=== PATIENT | female | born 1960 | race Caucasian/White ===

== ENCOUNTER 2019-03-13 16:05 | Inpatient (IN) | payer OTHER, SELFPAY ==
[2019-03-13] VITALS (8 sets, daily range): BP systolic 89–98; BP diastolic 50–60; PULSE 86–105; RESP 16–22; TEMP 36.4–36.6; O2SAT 95–100; BMI 29.9
--- NOTE | ~2019-03-13 | XR_ITS ---
EXAMINATION: XR chest 1V portable DATE: 03/18/2019 05:52 INDICATION: Respiratory failure. TECHNIQUE: A single frontal view of the chest was obtained. COMPARISON: Chest single view 03/17/2019, chest CT 03/15/2019 FINDINGS: There are airspace opacities in all lung zones bilaterally, left worse than right. No pleur al effusion or pneumothorax. The heart size is normal. The endotracheal tube tip is 2.4 cm above the debora. A right internal jugular central venous catheter is seen with tip at the superior cavoatrial junction. The nasogastric tube tip is in the stomach. IMPRESSION: 1. Unchanged diffuse lung disease, consistent with pulmonary edema and/or pneumonia. Reviewed, dictated and finalized at location A. RETING SUPERVISOR IMPRESSION: 1. Unchanged diffuse lung disease, consistent with pulmonary edema and/or pneum onia.
--- NOTE | ~2019-03-13 | XR_ITS ---
EXAMINATION: XR chest 1V portable DATE: 03/21/2019 05:59 INDICATION: Respiratory failure. TECHNIQUE: A single frontal view of the chest was obtained. COMPARISON: Chest single view 03/20/2019 FINDINGS: There are interstitial and airspace opacities throughout the lungs bilaterally. No pleural effusion or pneumothorax. The heart size is normal. A right internal jugular central venous catheter is seen with tip in the superior vena cava. IMPRESSION: 1. Stable diffuse lung disease, consistent with pulmonary edema versus pneumonia. Reviewed, dictated and finalized at location A. SEWER IMPRESSION: 1. Stable diffuse lung disease, consistent with pulmonary edema versus pneumoni a.
--- NOTE | ~2019-03-13 | XR_ITS ---
XR chest 1V portable DATE: 03/16/2019 05:37 INDICATION: Mechanical ventilation. Shortness of breath. TECHNIQUE: Portable AP chest on 03/16/2019 at 0523 hours COMPARISON: 03/15/2019 portable AP chest at 1259 hours FINDINGS: Interval placement of ET tube in satisfactory position with tip 3.1 cm above debora since 1259 hours. A nasogastric tube is also been placed, distal tip overlying the gastric fundus, the proximal port at the diaphragmatic hiatus. There has also been placement of a right internal jugular central venous catheter with catheter tip a t the superior caval atrial junction. No evidence of pneumothorax. There are extensive diffuse bilateral pulmonary infiltrates with lesser involvement of the right uppe r lung, stable since 03/15/2019. No pneumothorax. There is minimal if any pleural effusion. Heart size appears normal. Multiple calcified gallstones appear to be present IMPRESSION: Interval placement of ET and NG tubes and right internal jugular central venous catheter NG tube proximal port situated at the diaphragmatic hiatus; advancement of the tube is suggested Relatively stable extensive diffuse bilateral pulmonary infiltrates Reviewed, dictated and finalized at location A. TS DOCTOR IMPRESSION: Interval placement of ET and NG tubes and right internal jugular ce ntral venous catheter NG tube proximal port situated at the diaphragmatic hiatus; advancement of the tube is suggested Relatively stable extensive diffuse bilateral pulmonary infiltrates
--- NOTE | ~2019-03-13 | XR_ITS ---
XR chest 1V portable 03/13/2019 19:46 Indication: Shortness of breath and weakness Procedure: AP portable chest Comparison: No prior studies for comparison. Findings: Heart size upper normal. There are infiltrates of the left mid and lower lung. No edema, pl eural effusion or pneumothorax. No acute osseous abnormality. Impression: 1: Ill-defined infiltrates of the left mid and lower lung which most likely represent atelectasis or pneumonia. Reviewed, dictated and finalized at location A. STANT CLINICAL NURSE MANAGER Impression: 1: Ill-defined infiltrates of the left mid and lower lung which most likely rep resent atelectasis or pneumonia.
--- NOTE | ~2019-03-13 | XR_ITS ---
XR chest 1V portable 03/14/2019 16:35 Indication: Shortness of breath Procedure: AP portable chest Comparison: 03/13/2019 Findings: Heart size normal. There is diffuse bilateral airspace disease, most likely edema. No pleur al effusion or pneumothorax. No acute osseous abnormality. Impression: 1: Interval development of diffuse bilateral airspace disease, most likely edema. Pneumonia less favo red. Reviewed, dictated and finalized at location A. ISITION PROFESSIONAL Impression: 1: Interval development of diffuse bilateral airspace disease, most likely sara a. Pneumonia less favored.
--- NOTE | ~2019-03-13 | XR_ITS ---
EXAMINATION: XR chest 1V portable DATE: 03/15/2019 13:01 INDICATION: Shortness of breath. TECHNIQUE: A single frontal view of the chest was obtained. COMPARISON: Chest single view 03/14/2019, 03/13/2019 FINDINGS: The lung volumes are normal. There are airspace opacities in all lung zones bilaterally, le ft worse than right. No pleural effusion or pneumothorax. The heart size is normal. IMPRESSION: 1. Worsened diffuse lung disease, consistent with pulmonary edema versus pneumonia. Reviewed, dictated and finalized at location A. WRITER ASSEMBLER IMPRESSION: 1. Worsened diffuse lung disease, consistent with pulmonary edema versus pneumo ban.
--- NOTE | ~2019-03-13 | CT_ITS ---
EXAMINATION: CT brain wo con DATE: 03/26/2019 16:08 INDICATION: Lethargy, weakness and confusion TECHNIQUE: Computed tomography (CT) of the head was performed without intravenous contrast. Sagittal and coronal reconstructions were performed. The mA was adjusted according to patient size. Iterative reconstruction technique was employed. The dose-length product was 605.33 mGy-cm. COMPARISON: None FINDINGS: No acute intracranial hemorrhage, acute infarction or abnormal extra axial fluid collection. There is mild scattered white matter hypoattenuation consistent with chronic small vessel ischemic disease. Ventricles are normal and symmetric. No mass/mass effect. The right mastoid is hyperpneumatized. The orbits, paranasal sinuses and left mastoid air cells are normal. IMPRESSION: 1. No acute intracranial process. 2. Mild scattered white matter hypoattenuation consistent with chronic small vessel ischemic disease. Reviewed, dictated and finalized at location A. YARD SUPERVISOR IMPRESSION: 1. No acute intracranial process. 2. Mild scattered white matter hypoattenuation consistent with chronic small ve ssel ischemic disease.
--- NOTE | ~2019-03-13 | XR_ITS ---
EXAMINATION: XR chest 1V portable DATE: 03/15/2019 14:29 INDICATION: Intubation. TECHNIQUE: A single frontal view of the chest was obtained. COMPARISON: A single view at 12:55 PM FINDINGS: There are airspace opacities in all lung zones bilaterally, left worse than right. No pleur al effusion or pneumothorax. The heart size is normal. The endotracheal tube tip is 2.7 cm above the debora. The nasogastric tube tip is in the stomach. A right internal jugular central venous catheter is seen with tip in the superior vena cava. IMPRESSION: 1. Unchanged diffuse lung disease, consistent with pulmonary edema versus pneumonia. Reviewed, dictated and finalized at location A. L ASSEMBLER IMPRESSION: 1. Unchanged diffuse lung disease, consistent with pulmonary edema versus pneum onia.
--- NOTE | ~2019-03-13 | XR_ITS ---
XR chest 1V portable 03/19/2019 06:16 Indication: Respiratory failure Procedure: AP portable chest Comparison: Comparison to multiple prior studies sequentially, with oldest reviewed study dated 03/15. Findings: Heart size normal. Endotracheal tube tip 4.8 cm above the debora. NG tube in the stomach. R ight IJ central line tip in the SVC. Heart size normal. Mild diffuse interstitial edema, slightly imp roved. No pleural effusion or pneumothorax. No acute osseous abnormality. Impression: 1: Improved interstitial edema. Reviewed, dictated and finalized at location A. COMBER Impression: 1: Improved interstitial edema.
--- NOTE | ~2019-03-13 | XR_ITS ---
EXAMINATION: XR chest 1V portable DATE: 03/20/2019 05:52 INDICATION: Respiratory failure. TECHNIQUE: A single frontal view of the chest was obtained. COMPARISON: Chest single view 03/19/2019, chest CT 03/15/2019 FINDINGS: There are interstitial opacities and airspace opacities throughout the lungs bilaterally. N o pleural effusion or pneumothorax. The heart size is normal. A right internal jugular central venous catheter is seen with tip in the superior vena cava. IMPRESSION: 1. Worsened diffuse lung disease, consistent with pulmonary edema versus pneumonia. Reviewed, dictated and finalized at location A. APIST IMPRESSION: 1. Worsened diffuse lung disease, consistent with pulmonary edema versus pneumo ban.
--- NOTE | ~2019-03-13 | US_ITS ---
US arterial ankle brachial ind INDICATION: Peripheral vascular disease. TECHNIQUE: Segmental pressures and plethysmographic and Doppler waveforms of the brachial and lower e xtremity arteries were obtained. COMPARISON: None. FINDINGS: Right and left brachial artery pressures of 102 mm Hg and 100 mm Hg, respectively, are concordant (no rmal difference <= 30 mmHg). The right ankle-brachial index (LILIA) is 0.85 (normal >= 0.9-1.0). The right great toe-brachial index (TBI) is not measurable (normal >= 0.60). The left LILIA is 0.81. The left TBI is not measurable. IMPRESSION: 1. Diminished bilateral ankle-brachial indices. Toe brachial indices not measurable. Findings compati ble with peripheral arterial disease. Reviewed, dictated and finalized at location A. CTOR BUSINESS IMPRESSION: 1. Diminished bilateral ankle-brachial indices. Toe brachial indices not measur able. Findings compatible with peripheral arterial disease.
--- NOTE | ~2019-03-13 | CT_ITS ---
EXAMINATION: CTA chest PE protocol DATE: 03/15/2019 21:56 PHYSICIAN GENERAL INTERNAL MEDICINE INDICATION: Possible pulmonary embolism TECHNIQUE: Computed tomographic angiography (CTA) of the chest was performed with 100 mL Omnipaque-35 0 intravenous contrast. The dose-length product was 683.49 mGy-cm. Maximum intensity projection 3D-re constructions of the aorta and other arteries were constructed by the technologist on a separate work station. Automated exposure control and iterative reconstruction technique were employed. COMPARISON: Chest dated 03/15/2019 FINDINGS: The study is technically adequate without evidence for pulmonary embolism. There is mediast inal lymphadenopathy. Endotracheal tube is less than 1 cm above the debora. NG tube in the stomach. T here is enlargement of the pulmonary arteries consistent with pulmonary arterial hypertension. There is extensive airspace consolidation throughout both lungs superimposed on emphysema. No significant p leural or pericardial effusion. There are gallstones. IMPRESSION: 1. No evidence for pulmonary embolism. 2: Extensive bilateral airspace disease which may represent a combination of pneumonia and/or edema. 3: Pulmonary arterial hypertension. 4: Endotracheal tube tip less than 1 cm above the debora. Recommend retraction. 5: Cholelithiasis. Reviewed, dictated and finalized at location A. ICIAN GENERAL INTERNAL MEDICINE IMPRESSION: 1. No evidence for pulmonary embolism. 2: Extensive bilateral airspace disease which may represent a combination of pn eumonia and/or edema. 3: Pulmonary arterial hypertension. 4: Endotracheal tube tip less than 1 cm above the debora. Recommend retraction. 5: Cholelithiasis.
--- NOTE | ~2019-03-13 | XR_ITS ---
EXAMINATION: XR chest 1V portable INDICATION: Respiratory failure TECHNIQUE: Portable AP chest at 0525 hours COMPARISON: 03/16/2019 FINDINGS: The endotracheal tube ends 4.1 cm above the debora. A nasogastric tube is in the stomach. A right internal jugular central venous catheter ends with its tip in the distal superior vena cava. D iffuse interstitial and airspace opacities persist with slight improvement. No definite pleural effus ion or pneumothorax is identified. IMPRESSION: 1. Diffuse lung disease with slight improvement, consistent with pulmonary edema and/or pneumonia. Reviewed, dictated and finalized at location A. H SCIENCE TECHNICAL OFFICER IMPRESSION: 1. Diffuse lung disease with slight improvement, consistent with pulmonary sara a and/or pneumonia.
--- NOTE | 2019-03-13 16:10 | ED.WEAKNESS ---
HPI - Weakness General Chief complaint: Weakness Stated complaint: dehydration and weakness Time Seen by Provider: 03/13/19 16:09 Source: patient and RN notes reviewed Mode of arrival: EMS Limitations: no limitations History of Present Illness HPI Narrative: Pt is a 58 y/o female who presents to the ED, from her PCP's office via EMS, with c/o increasing weakness and confusion over the past few days. Pt states that she is dying of thirst and that her tongue is white. Pt notes that she was sent from her PCP's office for hypotension. Pt reports nausea and decreased intake, but denies a fever, vomiting, and diarrhea. MD Complaint: generalized weakness (and confusion) Onset (ago): day(s) (few) Duration: other (still present) Location: generalized Associated symptoms: nausea/vomiting and other (white tongue, decreased intake) Related Data Home Medications Medication Instructions Recorded Confirmed azelastine 03/13/19 buspirone mg 03/13/19 citalopram mg 03/13/19 etanercept [Enbrel SureClick] mg SUBCUT 03/13/19 folic acid 03/13/19 gabapentin 03/13/19 gentamicin TOPICAL 03/13/19 hydrocodone-acetaminophen 03/13/19 ibuprofen 03/13/19 leflunomide mg 03/13/19 levothyroxine 03/13/19 lisinopril 03/13/19 potassium chloride meq PO 03/13/19 pravastatin 03/13/19 Allergies Allergy/AdvReac Type Severity Reaction Status Date / Time No Known Allergies Allergy Verified 03/13/19 16:27 Review of Systems Review of Systems: All systems reviewed & are unremarkable except as noted in HPI and below Constitutional: Constitutional: Reports other (decreased intake) Gastrointestinal: Gastrointestinal: Denies diarrhea, Reports nausea and Denies vomiting Neurologic: Reports confusion and Reports weakness (increasing) [facility] Past Medical History Medical History (Updated 03/13/19 @ 19:33 by Demetrius Moya MD) Anemia resolved Anxiety HTN (hypertension) Hyperlipidemia Hypothyroid Peripheral neuropathy Pseudomyxoma peritonei Rheumatoid arthritis Type II diabetes mellitus Surgical History Surgical History (Updated 03/13/19 @ 16:40 by Sameera Ahn) H/O dilation and curettage Social History Social History Smoking packs per day: 1 Smoking cigarettes per day: 20.0 Years smoked: 31 Smoking pack-years: 31.00 Smoking status: Current every day smoker Tobacco type: cigarettes Alcohol intake: never Exam Const: General: no acute distress and alert Orientation/consciousness: patient oriented x3 HENMT: Mouth: Yes dry mucous membranes Other: has oral thrush Eyes: Pupils: Equal, round and reactive pupils present Neck: Neck: normal visual inspection Chest: Chest palpation & inspection: normal inspection of the chest Resp: Effort & Inspection: normal respiratory effort Auscultation: wheezes Cardio: Rate: regular rate GI: GI Palp: Yes Soft to palpation Back/Spine/Pelvis: Back: no CVA tenderness Skin: General skin exam: normal color Neuro: General: patient oriented x3 and moves all extremities Extrem: Other: has contractures of both hand Course Reevaluation(s) Reevaluation #1: Pt refuses x-ray after explanation of importance. Date: 03/13/19 Time: 19:22 Consultations Consultation #1: Discussed case with TALA Braun (Hospitalist). Accepts admission to Dr. Torrez. Date: 03/13/19 Time: 17:31 Vital Signs Vital signs: Vital Signs Temperature 36.6 C 03/13/19 16:05 Pulse Rate 97 03/13/19 16:05 Respiratory Rate 18 03/13/19 16:05 Blood Pressure 89/50 L 03/13/19 16:05 Pulse Oximetry 99 03/13/19 16:05 Temperature 36.6 C 03/13/19 16:05 Pulse Rate 105 H 03/13/19 19:10 Respiratory Rate 16 03/13/19 19:10 Blood Pressure 90/58 L 03/13/19 19:10 Pulse Oximetry 95 03/13/19 19:10 MDM - Weakness MDM Narrative Medical decision making narrative: Inform patient about her lab work, patient refused the chest x-ray will admit to the hospital for IV
[2019-03-13] MEDS: SODIUM CHLORIDE 0.9% IV 1,000 ML 999 ML IV CONT ×2 (16:30→18:33)
[2019-03-13] MEDS: SODIUM CHLORIDE 0.9% IV 1,000 ML 150 ML IV CONT (16:30)
[2019-03-13 16:43] LABS: Basophils Absolute Auto 0.1 K/mm3 (0.0-0.1); Basophils Percent Auto 0.7 % (0.2-1.2); Eosinophils Absolute Auto 0.1 K/mm3 (0-0.3); Eosinophils Percent Auto 0.7 % (0-4.4); Hemoglobin 8.8 g/dL (12.0-15.0); Immature Granulocyte Absolute 0.09 K/mm3 (0.00-0.031); Immature Granulocyte Percent A 1.2 % (0-0.5); Lymphocytes Absolute Auto 0.47 K/mm3 (0.9-3.2); Lymphocytes Percent Auto 6.2 % (18.3-44.2); Mean Corpuscular HGB Conc 31.4 g/dl (32-36); Mean Corpuscular Hemoglobin 28.6 pg (26-34); Mean Corpuscular Volume 90.9 fl (80-100); Mean Platelet Volume 11.7 fl (7.4-10.4); Monocytes Absolute Auto 0.2 K/mm3 (0.1-0.6); Monocytes Percent Auto 3.2 % (2.6-8.5); Neutrophils Absolute Auto 6.6 K/mm3 (1.3-6.7); Platelet Count Result 140 k/mm3 (150-375); Red Blood Count 3.08 M/mm3 (4.2-5.4); Red Cell Distribution Width 16.6 % (11.5-14.5); White Blood Count 7.5 K/mm3 (4.5-10.0)
[2019-03-13 16:50] LABS: Alveolar/Arterial O2 Gradient 42.4 mmHg; Base Excess ABG -10.7 mEq/l (+/-2.0); Fractional Inspired Oxygen 21 %; HCO3 ABG 14.5 mEq/l (22.0-26.0); Oxygen Content ABG 10.2 %vol (16.0-22.0); Oxygen Saturation ABG 93.2 % (95.0-100.0); Oxyhemoglobin 86.2 % THb (90.0-100.0); PCO2 ABG 29.9 mmHg (35.0-45.0); PO2 ABG 71.5 mmHg (80.0-100.0); Total Hemoglobin 8.3 g/dL (12.0-18.0); pH ABG 7.305 (7.350-7.450)
[2019-03-13 16:51] LABS: Device ROOM AIR; Site Drawn LEFT BRACHIAL
[2019-03-13 17:19] LABS: Alanine Aminotransferase 16 U/L (4-35); Albumin Level 3.2 g/dL (3.5-5.1); Alkaline Phosphatase 158 U/L (38-126); Aspartate Amino Transferase 35 U/L (14-36); Bilirubin,Total 0.2 mg/dL (0.2-1.3); Blood Urea Nitrogen 42 mg/dL (7-17); Calcium 7.4 mg/dL (8.4-10.2); Carbon Dioxide 15 mmol/L (22-30); Chloride 101 mmol/L (98-107); Estimated CRCL calculation 41 ml/min; Estimated Glomerular Filt Rate 42; Glucose 93 mg/dL (65-105); Potassium 3.6 mmol/L (3.4-5.0); Sodium 128 mmol/L (137-145)
[2019-03-13 17:30] LABS: CRP 21.8 mg/dL (<1.0)
[2019-03-13] MEDS: HYDROCORTISONE SODIUM SUCCINATE 100 MG/2 ML VIAL IV PUSH (18:05)
[2019-03-13 18:14] LABS: Add Urine Microscopic? YES; Appearance Urine Clear (Clear); Bacteria Urine Trace /hpf; Bilirubin Urine Negative (Negative); Blood Urine 2+ (Negative); Color Urine Yellow (Yellow); Glucose Urine UA Negative (Negative); Ketones Urine Negative (Negative); Leukocyte Esterase Ur 3+ LEU/UL (Negative); Mucus Urine Rare /lpf; Nitrate Urine Negative (Negative); Protein Urine 1+ mg/dL (Negative); Squamous Epithelial Cell Urine Moderate /hpf (Few); Urobilinogen Urine Negative mg/dL (<2.0); WBC Urine 21-30 /hpf
[2019-03-13] MEDS: LACTATED RINGERS 1,000 ML 150 ML IV CONT (21:21)
[2019-03-14] VITALS (13 sets, daily range): BP systolic 89–134; BP diastolic 42–99; PULSE 83–118; RESP 18–30; TEMP 36.1–36.8; O2SAT 80–100; BMI 29.4
[2019-03-14 00:50] LABS: Glucose Point of Care 109 (65-105)
[2019-03-14] MEDS: LACTATED RINGERS 1,000 ML 150 ML IV CONT (03:59)
[2019-03-14 05:04] LABS: Basophils Percent Auto 0.3 % (0.2-1.2); Hematocrit 24.8 % (37.0-47.0); Hemoglobin 7.7 g/dL (12.0-15.0); Immature Granulocyte Absolute 0.14 K/mm3 (0.00-0.031); Lymphocytes Absolute Auto 0.33 K/mm3 (0.9-3.2); Lymphocytes Percent Auto 4.7 % (18.3-44.2); Mean Corpuscular Hemoglobin 28.2 pg (26-34); Mean Corpuscular Volume 90.8 fl (80-100); Mean Platelet Volume 11.7 fl (7.4-10.4); Monocytes Absolute Auto 0.2 K/mm3 (0.1-0.6); Monocytes Percent Auto 2.1 % (2.6-8.5); Neutrophils Absolute Auto 6.4 K/mm3 (1.3-6.7); Neutrophils Percent Auto 90.9 % (45.5-73.1); Platelet Count Result 125 k/mm3 (150-375); Red Blood Count 2.73 M/mm3 (4.2-5.4); Red Cell Distribution Width 16.7 % (11.5-14.5)
[2019-03-14 05:19] LABS: Blood Urea Nitrogen 22 mg/dL (7-17); Calcium 7.1 mg/dL (8.4-10.2); Carbon Dioxide 15 mmol/L (22-30); Chloride 116 mmol/L (98-107); Estimated CRCL calculation 72 ml/min; Estimated Glomerular Filt Rate > 60; Glucose 95 mg/dL (65-105); Sodium 137 mmol/L (137-145)
[2019-03-14 05:59] LABS: Glucose Point of Care 81 (65-105)
[2019-03-14] MEDS: LEVOTHYROXINE SODIUM 100 MCG TABLET PO (06:12)
--- NOTE | 2019-03-14 07:50 | PM.IMHP ---
H&P: HPI History of Present Illness Chief complaint: Weakness Narrative: Date and time of patient contact: March 14, 2019 at 4:30 a.m. Christie Andrade is a 58 year old female female with a past medical history chronic anemia, hypertension, diet-controlled type 2 diabetes mellitus, and peripheral neuropathy who presented to the ER with dehydration and generalized weakness. The patient received a ?pain shot? in her muscle at her doctor's office on Wednesday. The following day she developed sores in her mouth and had decreased appetite. She did not have any nausea vomiting or abdominal pain. She had had decreased urine output without dysuria or hematuria. She has not been having cough or congestion. She denies any fevers but is frequently chilled. She reports that she lost the fingernail on her 3rd finger. She does not remember how she injured it. The finger itself is not erythematous or swollen. However her nail bed is dark black in color. She reports that she has but a Neosporin on a daily. She has a chronic right great toe wound that Podiatry is following as outpatient. She reports that the wound appears stable compared her last Podiatry visit. She usually put some cream on the wound and puts a bandage over it. Her 3rd toe on her left foot is discolored she reports that she stubbed her toe recently. The patient has felt weak with standing and lightheaded. She feels as if she is dying of thirst. She usually drinks a 12 pack of soda a day. However she has not been able to drink much fluid at all due to oral pain. She also has a sore throat. Oral thrush is noted on exam. She does continue to smoke 2 packs of cigarettes per day. Review of Systems Review of Systems: Narrative: Except as documented in the HPI, all other systems were reviewed and are negative. 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 Right great toe HTN (hypertension) Hyperlipidemia Hypothyroid Peripheral neuropathy Rheumatoid arthritis Type II diabetes mellitus Surgical History Surgical History (Updated 03/13/19 @ 16:40 by Sameera Ahn) H/O dilation and curettage Family History Family History (Updated 03/13/19 @ 21:16 by Dior Quintana RN) Mother Diabetes mellitus Father Coronary artery disease Sibling Diabetes mellitus Social History Social History (Updated 03/14/19 @ 08:07 by Julia Soto DO) Social History: Primary care provider: Lisa Monreal NP Code status: Full code per patient request Smoking packs per day: 2 Smoking cigarettes per day: 40.0 Years smoked: 42 Smoking pack-years: 84.00 Smoking status: Current every day smoker Tobacco type: cigarettes Second hand tobacco smoke exposure: Yes Alcohol intake: never Substance use: never Additional living arrangements comments: Patient is however her ex- still lives with her and helps take care of her. She has 1 daughter who is healthy. Additional occupation/education comments: Disabled due to rheumatoid arthritis. Gender identity (if verbalized by the patient): Female Spiritual care concerns: No Agree to blood products: Yes Meds Home Medications and Allergies Home Medications Medication Instructions Recorded Confirmed Type azelastine 1 drp OPHTHALMIC (EYE) BID 03/13/19 03/13/19 History buspirone 7.5 mg PO DAILY 03/13/19 03/13/19 History citalopram 40 mg PO DAILY 03/13/19 03/13/19 History folic acid 1 mg PO DAILY 03/13/19 03/13/19 History gabapentin 1,200 mg PO HS 03/13/19 03/13/19 History gabapentin 600 mg PO QAM 03/13/19 03/13/19 History hydrocodone-acetaminophen 1 tablet PO BID PRN 03/13/19 03/13/19 History ibuprofen 600 mg PO TID 03/13/19 03/13/19 History leflunomide 20 mg PO DAILY 03/13/19 03/13/19 History levothyroxine 100 mcg PO DAILY 03/13/19 03/13/19 History lisinopril
[2019-03-14] MEDS: CITALOPRAM HYDROBROMIDE 20 MG TABLET 40 MG PO (08:46)
[2019-03-14] MEDS: IBUPROFEN 600 MG TABLET PO ×2 (08:46→12:40)
[2019-03-14] MEDS: POTASSIUM CHLORIDE 20 MEQ PACKET (FOR LIQUID) 40 MEQ PO (08:46)
[2019-03-14] MEDS: busPIRone HCL 5 MG TABLET PO (08:46)
[2019-03-14] MEDS: FOLIC ACID 1 MG TABLET PO (08:46)
[2019-03-14] MEDS: busPIRone HCL 2.5 MG TABLET PO (08:46)
[2019-03-14] MEDS: POTASSIUM CHLORIDE 10 MEQ TABLET.ER PO (08:47)
[2019-03-14] MEDS: PRAVASTATIN SODIUM 20 MG TABLET 40 MG PO (08:47)
[2019-03-14] MEDS: GABAPENTIN 300 MG CAPSULE 600 MG PO (08:47)
[2019-03-14] MEDS: MAGNES & ALUM HYD/SIMETH/DIPHENHYD/LIDOCAINE 119 ML MOUTHWASH BY MOUTH (08:53)
--- NOTE | 2019-03-14 09:53 | PC.NURSE ---
This patient, Christie Andrade, was transferred to [[id number]] on 03/14/19 at 0953. Personal belongings sent with patient. Belongings list checked and signed with receiving [ ]. Report given to [DOREEN CHARLTON]. Appropriate documentation sent with patient.
--- NOTE | 2019-03-14 10:55 | PC.NURSE ---
This patient, Christie Andrade, was received from [[facility] ] on 03/14/19 at 0955. Personal belongings list checked and signed. Patient/family oriented to unit policies and routines
--- NOTE | 2019-03-14 12:23 | PCNSR ---
On 03/14/19, the student, Charlotte Phelps, provided care and completed [facility] documentation on this patient. I have reviewed the student's documentation and agree with the findings.
--- NOTE | 2019-03-14 13:20 | PM.IMPN ---
Progress Note: A&P Assessment and Plan (1) Acute respiratory failure: Qualifiers: Respiratory failure complication: hypoxia Qualified Code(s): J96.01 - Acute respiratory failure with hypoxia Code(s): J96.00 - Acute respiratory failure, unspecified whether with hypoxia or hypercapnia Status: Acute Assessment and Plan: Upon transfer from IMU to medical floor, patient requiring 2 L oxygen. On my initial exam patient stable. I am call to see the patient this afternoon at approximately 4:10 p.m.. Patient with recent episode of shortness breath. Currently on 4 L of oxygen. Patient does appear pale. Stat chest x-ray ordered and now available. I did personally review chest x-ray which does show bilateral airspace disease most likely result fluid overload. Will stop IV fluids. Stat ABG done with results concern possible mixed venous results and will repeat. Now on 5 L oxygen. Does not appear to have pneumonia with no fever and no cough. WBC not elevated. Will transfer back to IMU for closer monitoring. Will check echocardiogram in a.m.. Total time spent in critical care 45 minutes. (2) Metabolic acidosis with normal anion gap and failure of bicarbonate regeneration: Code(s): E87.2 - Acidosis Status: Acute Assessment and Plan: Consistent with hyperchloremic acidosis or reduced bicarb regeneration given the patient's acute kidney injury. Bicarb level remains low but does remain on LR at this time. Hold off changing IV fluids. Can at bicarb if becomes necessary. Continue to follow. (3) Hypokalemia: Code(s): E87.6 - Hypokalemia Status: Acute Assessment and Plan: Potassium remaining at 3.0 even on repeat this afternoon. Continue oral replacement. Will continue to monitor and replace as needed. (4) Anemia: Qualifiers: Anemia type: unspecified type Qualified Code(s): D64.9 - Anemia, unspecified Code(s): D64.9 - Anemia, unspecified Status: Acute Assessment and Plan: Acute on chronic anemia. Likely due to dietary deficiencies given the patient's clinical picture. Clinically, patient appeared more pale this afternoon with concern for decreasing hemoglobin. Repeat hemoglobin actually increased at 9.0. Will not transfuse as result. Iron studies are still pending. Will continue to follow H&H. Vitamin B12 and folate levels are also pending. Of note, daughter does now tell me patient has had blood in stool although patient denied this afternoon. Follow H&H as noted. (5) Dehydration: Code(s): E86.0 - Dehydration Status: Acute Assessment and Plan: Clinically dehydrated on admission. Sodium has improved with IV fluids. Still has acidosis. Will need to push oral intake with need stop IV fluids. (6) Candidiasis of mouth: Code(s): B37.0 - Candidal stomatitis Status: Acute Assessment and Plan: Will continue IV fluconazole. Does also have Magic mouthwash but does not wish to use. Will continue to monitor. Reason for problems with eating and dehydration. 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 Continue current care. (8) Finger ulcer: Qualifiers: Non-pressure ulcer stage: unspecified non-pressure ulcer stage Qualified Code(s): L98.499 - Non-pressure chronic ulcer of skin of other sites with unspecified severity Code(s): L98.499 - Non-pressure chronic ulcer of skin of other sites with unspecified severity Status: Acute Assessment and Plan: Wound care has seen. Continue current wound care. (9) HTN (hypertensi
[2019-03-14] MEDS: LACTATED RINGERS 1,000 ML 1000 ML IV CONT (14:29)
[2019-03-14 16:22] LABS: Glucose Point of Care 94 (65-105)
[2019-03-14 16:28] LABS: Alveolar/Arterial O2 Gradient 179.5 mmHg; Base Excess ABG -10.3 mEq/l (+/-2.0); Fractional Inspired Oxygen 36 %; HCO3 ABG 14.7 mEq/l (22.0-26.0); Oxygen Content ABG 9.1 %vol (16.0-22.0); Oxyhemoglobin 69.6 % THb (90.0-100.0); PCO2 ABG 29.6 mmHg (35.0-45.0); PO2 FiO2 Ratio Arterial Blood 1.19 %; Total Hemoglobin 9.3 g/dL (12.0-18.0); pH ABG 7.315 (7.350-7.450)
[2019-03-14 16:30] LABS: Device NASAL CANNULA; Modified Allen's Test Pass; Oxygen Saturation ABG 75.3 % (95.0-100.0); PO2 ABG 42.8 mmHg (80.0-100.0); Site Drawn RIGHT RADIAL
[2019-03-14 16:38] LABS: Basophils Percent Auto 0.2 % (0.2-1.2); Eosinophils Percent Auto 0.2 % (0-4.4); Hematocrit 28.7 % (37.0-47.0); Immature Granulocyte Absolute 0.04 K/mm3 (0.00-0.031); Immature Granulocyte Percent A 0.9 % (0-0.5); Lymphocytes Absolute Auto 0.49 K/mm3 (0.9-3.2); Mean Corpuscular HGB Conc 31.4 g/dl (32-36); Mean Corpuscular Hemoglobin 28.6 pg (26-34); Mean Corpuscular Volume 91.1 fl (80-100); Mean Platelet Volume 10.3 fl (7.4-10.4); Monocytes Absolute Auto 0.1 K/mm3 (0.1-0.6); Neutrophils Absolute Auto 3.8 K/mm3 (1.3-6.7); Neutrophils Percent Auto 85.7 % (45.5-73.1); Platelet Count Result 119 k/mm3 (150-375); Red Blood Count 3.15 M/mm3 (4.2-5.4); Red Cell Distribution Width 16.6 % (11.5-14.5); White Blood Count 4.4 K/mm3 (4.5-10.0)
[2019-03-14 16:50] LABS: Blood Urea Nitrogen 20 mg/dL (7-17); Calcium 8.3 mg/dL (8.4-10.2); Carbon Dioxide 15 mmol/L (22-30); Chloride 113 mmol/L (98-107); Estimated CRCL calculation 72 ml/min; Estimated Glomerular Filt Rate > 60; Glucose 93 mg/dL (65-105); Sodium 135 mmol/L (137-145)
[2019-03-14 17:02] LABS: Platelet Estimate Adequate (Adequate)
[2019-03-14 17:03] LABS: Ovalocytes 1+ (NORMAL); Tear Drop Cells 2+ (NORMAL)
[2019-03-14 17:05] LABS: Schistocytes 2+ (NORMAL)
[2019-03-14 17:19] LABS: Alveolar/Arterial O2 Gradient 206.2 mmHg; Fractional Inspired Oxygen 40 %; HCO3 ABG 14.1 mEq/l (22.0-26.0); Oxygen Content ABG 11.4 %vol (16.0-22.0); Oxyhemoglobin 72.2 % THb (90.0-100.0); PCO2 ABG 29.2 mmHg (35.0-45.0); PO2 FiO2 Ratio Arterial Blood 1.13 %; Total Hemoglobin 11.2 g/dL (12.0-18.0); pH ABG 7.302 (7.350-7.450)
[2019-03-14 17:20] LABS: PO2 ABG 45.4 mmHg (80.0-100.0)
[2019-03-14 17:21] LABS: Device NASAL CANNULA; Oxygen Saturation ABG 77.8 % (95.0-100.0); Site Drawn LEFT BRACHIAL
[2019-03-14] MEDS: PANTOPRAZOLE SODIUM IV 40 MG VIAL IV PUSH (18:16)
[2019-03-14] MEDS: POTASSIUM CHLORIDE 20 MEQ TABLET 40 MEQ PO (18:17)
--- NOTE | 2019-03-14 18:32 | PC.NURSE ---
This patient, Christie Andrade, was transferred to [IMU] on 03/14/19 at 1830. Personal belongings sent with patient. Belongings list checked and signed with receiving [RN]. Report given to [Eduarda]. Appropriate documentation sent with patient.
[2019-03-14] MEDS: FUROSEMIDE INJ 40 MG/4 ML VIAL 20 MG IV PUSH (18:50)
--- NOTE | 2019-03-14 19:00 | PM.EVENT ---
Event Note Event Note Event Note: I received a call from the patient's nurse, Eduarda, with concerns of the patients respiratory status. Patient was just transferred to the IMU per Dr. Rosado for such. Chest x-ray was reviewed and appears to be consistent with pulmonary edema. She was given Lasix 20 milligrams. Repeat ABG showed a mixed metabolic and respiratory acidosis. On repeat blood gas, her pH did drop and her pCO2 did increase, indicating to me that she is having a more difficult time compensating for the metabolic acidosis. She has since been started on BiPAP and is much more comfortable. Unfortunately, we had to shut off her IV fluids due to volume overload and cannot initiate bicarb drip at this time. Should her repeat ABG demonstrate no changed, would go ahead and intubate and start bicarbonate drip. This was discussed with the patient, her , and daughter and they are all in agreement. Etiology of the metabolic acidosis is not clear at this time, but after discussions with Dr. Rosado will empirically start her on Zosyn. Blood cultures pending. A total of 40 minutes critical care time was spent in attention of this patient including review of chart, review of blood gases, initiation of BiPAP, and multiple discussions and reassessments as well as discussions with the attending hospitalist.
[2019-03-14 20:04] LABS: Carboxyhemoglobin 0.2 % THb (0-2.0); Fractional Inspired Oxygen 40 %; HCO3 ABG 14.3 mEq/l (22.0-26.0); Methemoglobin ABG 0.2 %THb (0-1.5); Oxygen Content ABG 9.6 %vol (16.0-22.0); Oxyhemoglobin 71.8 % THb (90.0-100.0); Reduced Hemoglobin 27.8 %THb (0-5.0); Total Hemoglobin 9.5 g/dL (12.0-18.0)
[2019-03-14 20:06] LABS: INR 1.4; PO2 ABG 48.1 mmHg (80.0-100.0); Prothrombin Time 16.5 Seconds (11.1-14.7); pH ABG 7.243 (7.350-7.450)
[2019-03-14 20:07] LABS: Alanine Aminotransferase 16 U/L (4-35); Albumin Level 2.9 g/dL (3.5-5.1); Alkaline Phosphatase 123 U/L (38-126); Aspartate Amino Transferase 43 U/L (14-36); Bilirubin,Total 0.4 mg/dL (0.2-1.3); Device NASAL CANNULA; Modified Allen's Test Pass; Oxygen Saturation ABG 77.6 % (95.0-100.0); Partial Thromboplastin Time 26.9 SECONDS (22.3-36.8); Site Drawn RIGHT RADIAL
[2019-03-14] MEDS: GABAPENTIN 300 MG CAPSULE 1200 MG PO (20:16)
[2019-03-14 20:19] LABS: NT Pro B Type Natriuretic Pept 3240 PG/ML (5-100); Troponin I 0.029 ng/mL (0.000-0.034)
[2019-03-14 21:34] LABS: Blood Urea Nitrogen 21 mg/dL (7-17); Calcium 8.5 mg/dL (8.4-10.2); Carbon Dioxide 14 mmol/L (22-30); Chloride 113 mmol/L (98-107); Estimated CRCL calculation 72 ml/min; Estimated Glomerular Filt Rate > 60; Glucose 105 mg/dL (65-105); Potassium 3.2 mmol/L (3.4-5.0); Sodium 136 mmol/L (137-145)
[2019-03-14 21:52] LABS: Alveolar/Arterial O2 Gradient 364.5 mmHg; Base Excess ABG -10.3 mEq/l (+/-2.0); Carboxyhemoglobin 0.3 % THb (0-2.0); Fractional Inspired Oxygen 100 %; HCO3 ABG 15.8 mEq/l (22.0-26.0); Methemoglobin ABG 0.4 %THb (0-1.5); Oxygen Content ABG 12.8 %vol (16.0-22.0); Oxygen Saturation ABG 99.6 % (95.0-100.0); Oxyhemoglobin 97.8 % THb (90.0-100.0); PCO2 ABG 35.3 mmHg (35.0-45.0); PO2 ABG 313.2 mmHg (80.0-100.0); PO2 FiO2 Ratio Arterial Blood 3.13 %; Reduced Hemoglobin 1.5 %THb (0-5.0); Total Hemoglobin 8.7 g/dL (12.0-18.0)
[2019-03-14 21:55] LABS: Device NON-INVASIVE VENT; Modified Allen's Test Pass; Site Drawn RIGHT RADIAL; pH ABG 7.268 (7.350-7.450)
[2019-03-14 21:56] LABS: Non-Invasive Expiratory Pressure 6 CMH2O; Non-Invasive Inspiratory Pressure 14 CMH2O; Non-Invasive Vent Rate 14 /MIN
[2019-03-14 22:54] LABS: Reflex Lactic Acid Yes or No Add Lactic
[2019-03-14 23:23] LABS: Lactic Acid 1.5 mmol/L (0.7-2.1)
[2019-03-14 23:35] LABS: Troponin I 0.027 ng/mL (0.000-0.034)
[2019-03-15] VITALS (27 sets, daily range): BP systolic 76–127; BP diastolic 41–68; PULSE 74–138; RESP 22–37; TEMP 35.7–38.4; O2SAT 88–100
--- NOTE | 2019-03-15 | ECHO_ITS ---
Patient Info Name: Christie Andrade Age: 58 years : 1960 Gender: Female Ht: 62 in Wt: 161 lbs BSA: 1.81 m2 HR: 138 bpm BP: 100 / 60 mmHg Heart Rhythm: Tachycardia Technical Quality: Poor Exam Date: 03/15/2019 12:29 PM Exam Location: [facility] Patient Status: Inpatient Admit Date: 03/13/2019 Staff Ordering Physician: Irish Hammonds MD [employer] Design Engineer: Jorge Ahuja RDCS Attending Provider: Kolby Torrez MD Referring Physician: JAYLENE NAIR; Exam Type: CA echo doppler color flow Study Info Indications J96.00 - Acute respiratory failure, unspecified whether with hypoxia or hypercapnia Complete two-dimensional, color flow and Doppler transthoracic echocardiogram is performed. Reason for Poor Study: poor patient cooperation History/Risk Factors Acute respiratory failure, HTN, DM2, SOB. Summary 1. Left ventricular chamber size and wall thickness are normal with no regional wall motion abnormalities. Hyperdynamic left ventricular function with an estimated ejection fraction of > 75%. Grade 2 diastolic dysfunction is present.. 2. Right ventricular chamber dimension is mildly enlarged with mild hypokinesis. 3. There is mild tricuspid valve regurgitation. 4. Severe pulmonary hypertension, estimated pulmonary arterial systolic pressure is 77 mmHg. 5. Technically difficult study with limited views. 6. Rhythm indeterminant. Left Ventricle Left ventricular chamber dimension is normal. Left ventricular systolic function is normal, estimated at >70%. There is no increased left ventricular wall thickness. Left ventricular septal wall motion is normal. The left ventricular diastolic function is grade III diastolic dysfunction. Left ventricular chamber size and wall thickness are normal with no regional wall motion abnormalities. Hyperdynamic left ventricular function with an estimated ejection fraction of > 75%. Grade 2 diastolic dysfunction is present.. Right Ventricle Right ventricular chamber dimension is mildly enlarged with mild hypokinesis. Right ventricular systolic function is reduced. Left Atria Left atrial chamber dimension is normal. Right Atria Right atrial chamber dimension is normal. Aortic Valve The aortic valve is trileaflet. There is no aortic valve sclerosis. There is no aortic valve stenosis. There is no aortic valve regurgitation. Pulmonic Valve The pulmonic valve is normal. There is no pulmonic valve stenosis. There is no pulmonic regurgitation. Mitral Valve The mitral valve has normal leaflets. There is no mitral valve stenosis. There is no mitral valve regurgitation. Tricuspid Valve The tricuspid valve leaflets are normal. There is no significant tricuspid valve stenosis. There is mild tricuspid valve regurgitation. Severe pulmonary hypertension, estimated pulmonary arterial systolic pressure is 77 mmHg. Pericardium/Pleural The pericardium appears normal. There is no pericardial effusion. Inferior Vena Cava Normal inferior vena cava with >50% collapse upon inspiration consistent with Empty right atrial pressure, 10 mmHg. Aorta The aortic root size at the sinus of Valsalva is normal. The prox ascending aorta size is normal. Left Ventricular Outflow Tract Name Value Normal
[2019-03-15] MEDS: SODIUM BICARBONATE 8.4% 50 MEQ/50 ML VIAL IV PUSH (00:20)
[2019-03-15 00:42] LABS: Alveolar/Arterial O2 Gradient 356.4 mmHg; Base Excess ABG -5.2 mEq/l (+/-2.0); Carboxyhemoglobin 0.3 % THb (0-2.0); Fractional Inspired Oxygen 70 %; HCO3 ABG 19.5 mEq/l (22.0-26.0); Methemoglobin ABG 0.4 %THb (0-1.5); Oxygen Content ABG 11.1 %vol (16.0-22.0); Oxygen Saturation ABG 97.8 % (95.0-100.0); Oxyhemoglobin 95.2 % THb (90.0-100.0); PCO2 ABG 34.5 mmHg (35.0-45.0); PO2 ABG 105.6 mmHg (80.0-100.0); PO2 FiO2 Ratio Arterial Blood 1.51 %; Reduced Hemoglobin 4.1 %THb (0-5.0); Total Hemoglobin 8.1 g/dL (12.0-18.0)
[2019-03-15 00:43] LABS: Device NON-INVASIVE VENT; Modified Allen's Test Pass; Site Drawn RIGHT RADIAL
[2019-03-15 00:44] LABS: Non-Invasive Expiratory Pressure 6 CMH2O; Non-Invasive Inspiratory Pressure 14 CMH2O; Non-Invasive Vent Rate 14 /MIN
[2019-03-15 02:43] LABS: Hematocrit 25.8 % (37.0-47.0); Mean Corpuscular Hemoglobin 28.3 pg (26-34); Mean Corpuscular Volume 91.2 fl (80-100); Mean Platelet Volume 10.9 fl (7.4-10.4); Platelet Count Result 122 k/mm3 (150-375); Red Blood Count 2.83 M/mm3 (4.2-5.4); Red Cell Distribution Width 16.7 % (11.5-14.5); White Blood Count 3.9 K/mm3 (4.5-10.0)
[2019-03-15 02:51] LABS: Alanine Aminotransferase 14 U/L (4-35); Albumin Level 2.6 g/dL (3.5-5.1); Alkaline Phosphatase 114 U/L (38-126); Aspartate Amino Transferase 39 U/L (14-36); Bilirubin,Total 0.7 mg/dL (0.2-1.3); Blood Urea Nitrogen 22 mg/dL (7-17); Calcium 8.3 mg/dL (8.4-10.2); Carbon Dioxide 18 mmol/L (22-30); Chloride 114 mmol/L (98-107); Estimated CRCL calculation 64 ml/min; Estimated Glomerular Filt Rate > 60; Glucose 85 mg/dL (65-105); Magnesium 2.3 mg/dL (1.6-2.3); Potassium 3.3 mmol/L (3.4-5.0); Sodium 142 mmol/L (137-145)
[2019-03-15 03:04] LABS: Troponin I 0.029 ng/mL (0.000-0.034)
[2019-03-15 03:12] LABS: Iron 80 ug/dL (37-170)
[2019-03-15 03:22] LABS: Percent Iron Saturation 39 % (20-50)
[2019-03-15 03:58] LABS: Folic Acid > 20.0 ng/mL (2.76->20)
[2019-03-15 04:32] LABS: Free T4 Free Thyroxine Reflex 1.92 ng/dL (0.78-2.19)
[2019-03-15 05:24] LABS: Total Triiodothyronine (T3) 0.47 NG/ML (0.97-1.69)
[2019-03-15] MEDS: LEVOTHYROXINE SODIUM 100 MCG TABLET PO (06:34)
--- NOTE | 2019-03-15 09:21 | PM.IMPN ---
Progress Note: A&P Assessment and Plan (1) Acute respiratory failure: Qualifiers: Respiratory failure complication: hypoxia Qualified Code(s): J96.01 - Acute respiratory failure with hypoxia Code(s): J96.00 - Acute respiratory failure, unspecified whether with hypoxia or hypercapnia Status: Acute Assessment and Plan: Patient now on BiPAP and will desaturate if off even for short period of time. Reinforce with patient need to stay on BiPAP. ABG improved with current settings. Chest x-ray yesterday did show bilateral airspace disease most likely fluid overload. IV fluids were stopped yesterday. Echocardiogram ordered for today with results pending. Initial blood culture still negative. Repeat blood cultures ordered yesterday. Urine culture on admission also in process. Now on IV Zosyn to cover for any possibility of infectious process although does not clearly have one at this time. Discussed possibility of needing CT scan of chest/abdomen/pelvis when she is able to be off BiPAP. I did ask her to consider if she would want to be on a ventilator if respiratory status worsens. Currently full code. (2) Metabolic acidosis with normal anion gap and failure of bicarbonate regeneration: Code(s): E87.2 - Acidosis Status: Acute Assessment and Plan: Initial acidosis entirely clear this point given other issues. Did receive IV bicarb yesterday with change respiratory status. Bicarb improved to 18 this morning. Will continue to follow. Replace as needed. (3) Hypokalemia: Code(s): E87.6 - Hypokalemia Status: Acute Assessment and Plan: Potassium still low but better at 3.3 today. Will give IV replacement given current respiratory status. Will continue to follow and replace as needed. (4) Anemia: Qualifiers: Anemia type: unspecified type Qualified Code(s): D64.9 - Anemia, unspecified Code(s): D64.9 - Anemia, unspecified Status: Acute Assessment and Plan: Acute on chronic anemia. Iron studies are normal at this point. Vitamin B12 and folate levels are okay. Hemoglobin 8.0 this morning and stable. Will continue to follow. (5) HTN (hypertension): Qualifiers: Hypertension type: essential hypertension Qualified Code(s): I10 - Essential (primary) hypertension Code(s): I10 - Essential (primary) hypertension Status: Acute Assessment and Plan: Blood pressure reviewed on 03/15/2019 and currently remaining low normal. Did have some lower readings overnight. Continue to hold lisinopril. Will monitor. (6) Dehydration: Code(s): E86.0 - Dehydration Status: Acute Assessment and Plan: Clinically dehydrated on admission. IV fluids stopped with change in respiratory status yesterday. Will monitor. (7) Candidiasis of mouth: Code(s): B37.0 - Candidal stomatitis Status: Acute Assessment and Plan: Will continue IV fluconazole. Does also have Magic mouthwash but does not wish to use. Will continue to monitor. 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 Continue current care. (9) Finger ulcer: Qualifiers: Non-pressure ulcer stage: unspecified non-pressure ulcer stage Qualified Code(s): L98.499 - Non-pressure chronic ulcer of skin of other sites with unspecified severity Code(s): L98.499 - Non-pressure chronic ulcer of skin of other sites with unspecified severity Status: Acute Assessment and Plan: Wound care has seen. Continue current wound care. (10) Type II diabetes mellitus:
[2019-03-15] MEDS: busPIRone HCL 5 MG TABLET PO (09:24)
[2019-03-15] MEDS: CITALOPRAM HYDROBROMIDE 20 MG TABLET 40 MG PO (09:25)
[2019-03-15] MEDS: FOLIC ACID 1 MG TABLET PO (09:25)
[2019-03-15] MEDS: PRAVASTATIN SODIUM 20 MG TABLET 40 MG PO (09:25)
[2019-03-15] MEDS: busPIRone HCL 2.5 MG TABLET PO (09:25)
[2019-03-15] MEDS: PANTOPRAZOLE SODIUM IV 40 MG VIAL IV PUSH (10:11)
[2019-03-15] MEDS: LORAZEPAM INJ 2 MG/ML VIAL 0.5 MG IV PUSH ×2 (11:25→21:18)
--- NOTE | 2019-03-15 13:00 | PC.NURSE ---
This patient, Christie Andrade, was transferred to [ICU-11] on 03/15/19 at 1300. Personal belongings sent with patient. Belongings list checked and signed with receiving [ ]. Report given to [SONYA CHARLTON]. Appropriate documentation sent with patient.
--- NOTE | 2019-03-15 14:46 | P.PCNBED_ITS ---
Procedures Central Line Placement: Right IJ: Discussed w/ patient and/or surrogate, the non-emergent placement of a central venous catheter, including its clinical necessity/indication & associated potential risks & complications.: No Emergently Placed - (Given emergent patient conditions, temporal constraints may not have permitted and aforementioned informed consent.): Yes Consent: could not be obtained due to urgency of procedure Central Line Date: 03/15/19 Central Line Time: 14:49 Pre-procedural Time-Out was completed immediately before starting the procedure and confirmed: Patient Identification, Site, Procedure, Patient Position and the Availability of Requisite Equipment.: Yes Patient Position: trendelenburg Patient placed on monitor/pulse ox: Yes Provider Prep: mask, sterile gown, sterile gloves, Max. sterile barrier precautions, cap and hand hygiene Central line prep: Chlorhexidine scrub and sterile full body sheet applied Local anesthesia used: lidocaine 1% Amount of anesthesia used (ml): 3 Ultrasound used for placement: Yes Central line lumen inserted: triple [place]: 7 Length (cm): 15 Depth of Insertion (cm): 15 Post procedure: sutured in place, good blood return, all ports aspirated, flushed, capped, tegaderm, antimicrobial disc and aseptic technique maintained throughout procedure Post procedure x-ray: tip of catheter in good position and no pneumothorax seen Patient tolerated procedure: well Complications: none
[2019-03-15 14:47] LABS: Alveolar/Arterial O2 Gradient 539.9 mmHg; Base Excess ABG -9.8 mEq/l (+/-2.0); Carboxyhemoglobin 0.1 % THb (0-2.0); Fractional Inspired Oxygen 100 %; HCO3 ABG 17.7 mEq/l (22.0-26.0); Methemoglobin ABG 0.2 %THb (0-1.5); Oxygen Content ABG 12.4 %vol (16.0-22.0); Oxygen Saturation ABG 97.8 % (95.0-100.0); Oxyhemoglobin 96.2 % THb (90.0-100.0); PCO2 ABG 46.3 mmHg (35.0-45.0); PO2 ABG 126.8 mmHg (80.0-100.0); PO2 FiO2 Ratio Arterial Blood 1.27 %; Reduced Hemoglobin 3.5 %THb (0-5.0)
[2019-03-15 14:49] LABS: Arterial Blood Gas PEEP 8 cmH2O; Arterial Blood Gas Tidal Volume 400 ml; Arterial Blood Gas Vent Mode CMV; Arterial Blood Gas Ventilator rate 24 /MIN; Device VENTILATOR; Site Drawn ARTLINE
--- NOTE | 2019-03-15 14:50 | P.PCNBED_ITS ---
Procedures Intubation: Intubation Date: 03/15/19 Intubation Time: 14:50 Consent: No consent could be obtained due to urgency pf procedure A pre-procedural Time- Out was completed immediately before starting the procedure and confirmed: Patient Identification, Site, Procedure, Patient Position and the Availability of Requisite Equipment: No Sedative: etomidate Mg given: 20 Paralytic: rocuronium Mg given: 50 Laryngoscope: fiber optic video scope Assist d evice used: fiber optic device ET tube size: 7.5 Tube secured depth (cm): 24 Tube secured location: lips Tube placement confirmation: visualized tube passing through cords, equal breath sounds bilaterally, no breath sounds over epigastrium and confirmation by capnometry Patient tolerated procedure: well Intubation complications: none Additional comments: Intubated on 2nd attempt
--- NOTE | 2019-03-15 14:52 | P.PCNBED_ITS ---
Procedures Arterial Line: Arterial Line Date: 03/15/19 Arterial Line Time: 14:52 Discussed with the patient/family/POA, the non-emergent placement of an arterial catheter, including its clinical necessity/indication and associated potential risks and complications: No Patient/family/POA and/or understand(s) and acknowledge(s) the need to proceed with the arterial catheter insertion as an important element of the patient's clinical management: No Perfomed Emergently - Given emergent patient conditions, temporal constraints may have precluded informed consent: Yes A pre-procedural Time-Out was completed immediately before starting the procedure and confirmed: Patient Identification, Site, Procedure, Patient Position and the Availability of Requisite Equipment: No Patient Position: supine Electroplating Laborer Prep: sterile gown, sterile gloves, mask and hat Site: right and femoral Site Prep: chlorhexidine, sterile drape and other Skin Anesthesia: 1% lidocaine Technique used: ultrasound- guided Size (Gauge): 14 Length: 12 cm Closure/Dressing: suture, antimicrobial disc and tegaderm Patient tolerated procedure: well Complications: none
--- NOTE | 2019-03-15 14:54 | WPDCNINT ---
Assessment and Plan Assessment and plan (1) Acute respiratory failure: Qualifiers: Respiratory failure complication: hypoxia Qualified Code(s): J96.01 - Acute respiratory failure with hypoxia Code(s): J96.00 - Acute respiratory failure, unspecified whether with hypoxia or hypercapnia Status: Acute Assessment and Plan: patient with acute respiratory failure. She had bilateral coarse by breath sounds on examination. Chest x-ray shows diffuse bilateral infiltrates more so on the left as compared to the right. This however are new as compared to the chest x-ray that was done at the time of admission. This could hence represent either pulmonary edema versus ARDS. patient could also have COPD exacerbation as she is a current smoker of 2 packs per day. She has longstanding rheumatoid arthritis and could have pulmonary fibrosis or rheumatoid lung disease. Patient was noted to be tachycardic with heart rates in 130s and hypoxic. This could also be due to her respiratory distress but at this point pulmonary embolism is also in the etiology as this was sudden in onset Hence I will start her on IV antibiotics to cover for healthcare associated pneumonia as she is immunocompromised due to her rheumatoid medications. I will start her on IV steroids for a presumed COPD exacerbation. I will check CT angiogram to rule out pulmonary embolism and to look at the baseline condition of her lung parenchyma. She has been given a dose of Lasix and we will monitor her urine output. An echocardiogram was done and will follow-up on that. There is a possibility that she may have pulmonary hypertension from a either rheumatoid lung/ emphysema from COPD. I will also check MRSA swab and influenza panel. (2) Metabolic acidosis with normal anion gap and failure of bicarbonate regeneration: Code(s): E87.2 - Acidosis Status: Acute Assessment and Plan: patient was given 3 L of IV fluids and continued on IV fluids while on the floor. she is noted to have non-anion gap hyperchloremic metabolic acidosis. Her lactic acid is slightly elevated but hypoxia can also lead to that. An art line was placed and patient is not noted to be hypotensive. There is a difference of 20 mm between art line and the cuff systolic pressures. I will give her 2 amps of bicarb IV push. I will hold off on IV fluids for now. She was given a dose of Lasix on arrival to ICU. ABG showing both metabolic and respiratory acidosis at this point. I have increased her respiratory rate to 28 on the vent. Will recheck another ABG dated today. (3) Acute UTI: Code(s): N39.0 - Urinary tract infection, site not specified Status: Acute Assessment and Plan: Her UA is suggestive of infection. Urine culture is pending. She has been started on empiric antibiotics to cover respiratory infection which should cover urinary tract infections too. (4) DVT prophylaxis: Code(s): Z29.9 - Encounter for prophylactic measures, unspecified Status: Acute Assessment and Plan: Lovenox subcu (5) Type II diabetes mellitus: Qualifiers: Diabetes mellitus watermelon inspector insulin use: without watermelon inspector use Diabetes mellitus complication status: with neurologic complications Diabetes mellitus complication detail: with unspecified neuropathy Qualified Code(s): E11.40 - Type 2 diabetes mellitus with diabetic neuropathy, unspecified Code(s): E11.9 - Type 2 diabetes mellitus without complications Status: Acute Assessment and Plan: will hold all oral hypoglycemic agents and place her on sliding scale insulin for now. Patient is NPO. (6) Rheumatoid arthritis: Qualifiers: Rheumatoid arthritis location: unspecified site Rheumatoid factor presence: unspecified presence Qualified Code(s): M06.9 - Rheumatoid arthritis, unspecified Code(s): M06.9 - Rheumatoid arthritis, unspecified Status: Acute
[2019-03-15] MEDS: FUROSEMIDE INJ 40 MG/4 ML VIAL IV PUSH (15:19)
[2019-03-15] MEDS: RAPID SEQUENCE INTUBATION KIT 1 EACH (15:54)
[2019-03-15] MEDS: SODIUM BICARBONATE 8.4% 50 MEQ/50 ML VIAL 100 MEQ IV PUSH (15:55)
--- NOTE | 2019-03-15 16:26 | ECG_ITS ---
Measurements Intervals [place] Rate: 119 P: OR: 0 QRS: 52 QRSD: 84 T: 74 QT: 327 QTc: 460 Interpretive Statements SINUS TACHYCARDIA FREQUENT ATRIAL PREMATURE COMPLEXES INCOMPLETE RIGHT BUNDLE BRANCH BLOCK LOW QRS VOLTAGE IN LIMB LEADS BORDERLINE T WAVE ABNORMALITY- LATERAL LEADS ABNORMAL ECG Electronically Signed On 03-16-2019 10:31:59 [employer]KE [employer] OPERATOR HELPER by Francisco Danielson D.O.
[2019-03-15 17:22] LABS: Influenza Control Positive
[2019-03-15 17:47] LABS: Alveolar/Arterial O2 Gradient 438.9 mmHg; Base Excess ABG -3.4 mEq/l (+/-2.0); Carboxyhemoglobin 0.2 % THb (0-2.0); Fractional Inspired Oxygen 90 %; HCO3 ABG 22.4 mEq/l (22.0-26.0); Methemoglobin ABG 0.2 %THb (0-1.5); Oxygen Content ABG 11.2 %vol (16.0-22.0); Oxygen Saturation ABG 98.9 % (95.0-100.0); Oxyhemoglobin 97.3 % THb (90.0-100.0); PCO2 ABG 43.6 mmHg (35.0-45.0); PO2 ABG 158.1 mmHg (80.0-100.0); PO2 FiO2 Ratio Arterial Blood 1.76 %; Reduced Hemoglobin 2.3 %THb (0-5.0); pH ABG 7.328 (7.350-7.450)
[2019-03-15 17:48] LABS: Device VENTILATOR; Site Drawn ARTLINE; Total Hemoglobin 7.9 g/dL (12.0-18.0)
[2019-03-15 17:49] LABS: Arterial Blood Gas PEEP 8 cmH2O; Arterial Blood Gas Tidal Volume 400 ml; Arterial Blood Gas Vent Mode CMV; Arterial Blood Gas Ventilator rate 28 /MIN
[2019-03-15] MEDS: METOPROLOL TARTRATE INJ 5 MG/5 ML VIAL IV PUSH (17:57)
--- NOTE | 2019-03-15 18:18 | PC.NURSE ---
Recieved pt to room from imu and several helped transfer pt to icu bed, unable to bean picker pulse ox readings from several locations, pt thrashing in bed and unable to calm down, at 1420 Dr. Morales intubated patient, then by 1445 Dr. Morales placed a triple lumen center catheter in right jugular, notified xray, right groin art line placed by Dr. morales, after xray here, dr morales stated ok to use line, at 1610 pt went into an a-fib with rvr in 180's, upon placing an ekg, pt went back to st <120's. lopressor 2.5/ iv given, family at bed side
[2019-03-15 19:15] LABS: Glucose Point of Care 125 (65-105)
[2019-03-15] MEDS: NOREPINEPHRINE 8 MG/D5W 250 ML 8 MG/250 ML BAG 9.4 MG IV CONT (20:06)
[2019-03-15 20:19] LABS: Lactic Acid 2.7 mmol/L (0.7-2.1)
[2019-03-15 20:20] LABS: Alanine Aminotransferase 15 U/L (4-35); Albumin Level 2.8 g/dL (3.5-5.1); Alkaline Phosphatase 113 U/L (38-126); Aspartate Amino Transferase 39 U/L (14-36); Bilirubin,Total 0.9 mg/dL (0.2-1.3); Blood Urea Nitrogen 25 mg/dL (7-17); Calcium 8.6 mg/dL (8.4-10.2); Carbon Dioxide 24 mmol/L (22-30); Chloride 111 mmol/L (98-107); Estimated CRCL calculation 47 ml/min; Estimated Glomerular Filt Rate 51; Glucose 194 mg/dL (65-105); Magnesium 2.2 mg/dL (1.6-2.3); Potassium 3.4 mmol/L (3.4-5.0); Sodium 143 mmol/L (137-145)
[2019-03-15] MEDS: ACETAMINOPHEN 325 MG TABLET 650 MG PO (20:58)
[2019-03-15] MEDS: LACTATED RINGERS 1,000 ML 75 ML IV CONT (22:59)
[2019-03-15] MEDS: methylPREDNISolone SOD SUCC 40 MG VIAL IV PUSH (23:39)
[2019-03-15 23:45] LABS: Glucose Point of Care 136 (65-105)
[2019-03-15 23:48] LABS: Hemoglobin A1C 5.1 % (<5.7)
[2019-03-16] VITALS (28 sets, daily range): BP systolic 94–139; BP diastolic 50–67; PULSE 61–97; RESP 16–30; TEMP 37–38.9; O2SAT 88–100; BMI 31.6
[2019-03-16 04:59] LABS: Alveolar/Arterial O2 Gradient 312.6 mmHg; Base Excess ABG -1.1 mEq/l (+/-2.0); Fractional Inspired Oxygen 60 %; HCO3 ABG 23.4 mEq/l (22.0-26.0); Methemoglobin ABG 0.1 %THb (0-1.5); Oxygen Content ABG 11.3 %vol (16.0-22.0); Oxygen Saturation ABG 94.9 % (95.0-100.0); Oxyhemoglobin 92.3 % THb (90.0-100.0); PCO2 ABG 38.1 mmHg (35.0-45.0); PO2 ABG 73.3 mmHg (80.0-100.0); PO2 FiO2 Ratio Arterial Blood 1.22 %; Reduced Hemoglobin 7.6 %THb (0-5.0); Total Hemoglobin 8.6 g/dL (12.0-18.0); pH ABG 7.406 (7.350-7.450)
[2019-03-16 05:00] LABS: Hematocrit 22.3 % (37.0-47.0); Mean Corpuscular HGB Conc 31.4 g/dl (32-36); Mean Corpuscular Hemoglobin 28.5 pg (26-34); Mean Corpuscular Volume 90.7 fl (80-100); Mean Platelet Volume 9.7 fl (7.4-10.4); Platelet Count Result 101 k/mm3 (150-375); Red Blood Count 2.46 M/mm3 (4.2-5.4); Red Cell Distribution Width 17.2 % (11.5-14.5); White Blood Count 5.8 K/mm3 (4.5-10.0)
[2019-03-16 05:00] LABS: Device VENTILATOR; Site Drawn ARTLINE
[2019-03-16 05:01] LABS: Arterial Blood Gas PEEP 8 cmH2O; Arterial Blood Gas Tidal Volume 400 ml; Arterial Blood Gas Vent Mode CMV; Arterial Blood Gas Ventilator rate 24 /MIN
[2019-03-16 05:26] LABS: Lactic Acid 1.9 mmol/L (0.7-2.1)
[2019-03-16 05:27] LABS: Blood Urea Nitrogen 26 mg/dL (7-17); Calcium 8.3 mg/dL (8.4-10.2); Carbon Dioxide 24 mmol/L (22-30); Chloride 109 mmol/L (98-107); Estimated CRCL calculation 52 ml/min; Estimated Glomerular Filt Rate 57; Glucose 253 mg/dL (65-105); Potassium 3.4 mmol/L (3.4-5.0); Sodium 140 mmol/L (137-145)
[2019-03-16] MEDS: LEVOTHYROXINE SODIUM 100 MCG TABLET FEED TUBE (05:29)
[2019-03-16] MEDS: methylPREDNISolone SOD SUCC 40 MG VIAL IV PUSH ×3 (05:29→21:05)
[2019-03-16] MEDS: INSULIN ASPART (*BKC) 100 UNITS/ML SUB-Q (05:36)
--- NOTE | 2019-03-16 08:14 | PM.IMPN ---
Progress Note: A&P Assessment and Plan (1) Acute respiratory failure: Qualifiers: Respiratory failure complication: hypoxia Qualified Code(s): J96.01 - Acute respiratory failure with hypoxia Code(s): J96.00 - Acute respiratory failure, unspecified whether with hypoxia or hypercapnia Status: Acute Assessment and Plan: Now intubated in ICU. Remains sedated on fentanyl and Precedex. Management of ventilator per curatorial specialist. CTA chest no pulmonary embolism but extensive bilateral airspace disease. Did review CTA with curatorial specialist. More likely pneumonia at this point. (2) Septic shock: Code(s): A41.9 - Sepsis, unspecified organism; R65.21 - Severe sepsis with septic shock Status: Acute Assessment and Plan: Now meets criteria but did not on admission. Was on neosynephrine and Levophed after transfer to ICU yesterday. Now only on 1 mcg of Levophed. Blood pressure reviewed on 03/16/2019 and stable. Urine culture now positive for Klebsiella and Proteus. All blood cultures pending. MRSA nasal culture pending. Currently on IV cefepime and vancomycin. Continue IV fluids restarted after transfer to ICU. (3) Pneumonia: Qualifiers: Laterality: bilateral Lung location: unspecified part of lung Pneumonia type: due to unspecified organism Qualified Code(s): J18.9 - Pneumonia, unspecified organism Code(s): J18.9 - Pneumonia, unspecified organism Status: Acute Assessment and Plan: CTA chest as noted above. Chest x-ray today with some improvement bilateral infiltrates. Continue IV antibiotics as noted. Also on IV steroids. Will monitor. (4) Acute UTI: Code(s): N39.0 - Urinary tract infection, site not specified Status: Acute Assessment and Plan: Urine culture now growing Klebsiella pneumoniae and Proteus mirabilis. Both sensitive to IV cefepime and will continue. (5) Metabolic acidosis with normal anion gap and failure of bicarbonate regeneration: Code(s): E87.2 - Acidosis Status: Acute Assessment and Plan: Initial acidosis not entirely clear but and does appear to be related to infection. Continue treatment of above issues. Acidosis has now corrected. (6) Hypokalemia: Code(s): E87.6 - Hypokalemia Status: Acute Assessment and Plan: Potassium better at 3.4 today. Additional IV replacement being given today. Will continue to follow and replace as needed. (7) Anemia: Qualifiers: Anemia type: unspecified type Qualified Code(s): D64.9 - Anemia, unspecified Code(s): D64.9 - Anemia, unspecified Status: Acute Assessment and Plan: Acute on chronic anemia. Iron studies are normal at this point. Vitamin B12 and folate levels are okay. Hemoglobin on labs 7.0 but 8.6 on ABG. Discussed with curatorial specialist. Will redraw hemoglobin to clarify. Continue to monitor. (8) Dehydration: Code(s): E86.0 - Dehydration Status: Acute Assessment and Plan: Clinically dehydrated on admission. IV fluids restarted after intubation. Will continue monitor (9) HTN (hypertension): Qualifiers: Hypertension type: essential hypertension Qualified Code(s): I10 - Essential (primary) hypertension Code(s): I10 - Essential (primary) hypertension Status: Acute Assessment and Plan: Currently requiring low-dose Levophed as noted above. Home lisinopril on hold. Will monitor. (10) Candidiasis of mouth: Code(s): B37.0 - Candidal stomatitis Status: Acute Assessment and Plan: Was receiving IV fluconazole before intubation. Unable to assess at this time. (11) Type II diabetes mellitus: Qualifiers: Diabetes mellitus complication detail: with unspecified neuropathy Diabetes mellitus complication status: with neurologic complications Diabetes mellitus cardboard inserter insulin use: without cardboard inserter use Qualified Code(s): E1
[2019-03-16 09:45] LABS: Hematocrit 22.2 % (37.0-47.0); Mean Corpuscular HGB Conc 31.1 g/dl (32-36); Mean Corpuscular Hemoglobin 28.3 pg (26-34); Mean Platelet Volume 11.5 fl (7.4-10.4); Platelet Count Result 104 k/mm3 (150-375); Red Blood Count 2.44 M/mm3 (4.2-5.4); Red Cell Distribution Width 17.1 % (11.5-14.5); White Blood Count 5.6 K/mm3 (4.5-10.0)
[2019-03-16 09:46] LABS: Hemoglobin 6.9 g/dL (12.0-15.0)
[2019-03-16] MEDS: FAMOTIDINE 20 MG/2 ML VIAL IV PUSH ×2 (09:48→21:04)
[2019-03-16] MEDS: GABAPENTIN 300 MG CAPSULE 600 MG PO ×2 (09:49→21:04)
[2019-03-16] MEDS: TOLNAFTATE 1% POWDER 45 GM BTL 1 APPLIC TOPICAL ×2 (10:59→21:04)
[2019-03-16] MEDS: busPIRone HCL 2.5 MG TABLET PO (10:59)
[2019-03-16] MEDS: busPIRone HCL 5 MG TABLET FEED TUBE (10:59)
[2019-03-16] MEDS: FOLIC ACID 1 MG TABLET PO (10:59)
[2019-03-16] MEDS: PRAVASTATIN SODIUM 20 MG TABLET 40 MG FEED TUBE (10:59)
[2019-03-16] MEDS: CITALOPRAM HYDROBROMIDE 20 MG TABLET 40 MG PO (11:00)
--- NOTE | 2019-03-16 11:47 | PCDIET ---
ICU Rounding Note: Patient intubated and is NPO. MD ordered to start tube feedings this date. Recommend Glucerna 1.2 at goal rate of 60mL/hr x 22 hours/day for total of 1584kcal, 79g protein and 1062mL free water. Agree with 30mL water flush every 4 hours. Last recorded weight is 78.6kg which is increased. I/O negative yesterday but overall net (+) since admission. Bowel Motility: No documented bowel movement. Bowel sounds hypoactive. Labs Reviewed: Glu (253), Alb (2.8), [place] Ca (9.26), Hgb (7.0), Hct (22.3) Meds Noted: Cefepime, Precedex, Pepcid, Fentanyl, Folic Acid, Novolog, Levophed, Protonix, KCl, Vancomycin, Vasopressin, LR @ 75mL/hr Additional Notes: Right finger and LE ulcers documented. MD ordered 1 unit RBC this date. Will follow for tube feeding advancement/tolerance. Following daily in ICU rounds. Assessing/reassessing every Wednesday/Wednesday.
--- NOTE | 2019-03-16 12:05 | WPDINTPN ---
Progress Note: A&P Assessment and Plan (1) Septic shock: Code(s): A41.9 - Sepsis, unspecified organism; R65.21 - Severe sepsis with septic shock Status: Acute Assessment and Plan: patient was hypotensive, requiring a central line, arterial. Was placed on Levophed and Javad-Synephrine was added overnight. - likely source is urine and lungs - currently off both vasopressors - continue cefepime and vancomycin - urine cultures positive for Klebsiella and Proteus ( landry sensitive) - blood cultures from 03/14/2019 x2 - urine output has been adequate - lactic acid has normalized - patient has an arterial line, does a 20 point difference between arterial blood pressures and uff pressures - echocardiogram 03/15/2019 showed EF of 75%, grade 2 diastolic dysfunction, severe pulmonary hypertension with RVSP of 77 mmHg (2) Acute respiratory failure: Qualifiers: Respiratory failure complication: hypoxia Qualified Code(s): J96.01 - Acute respiratory failure with hypoxia Code(s): J96.00 - Acute respiratory failure, unspecified whether with hypoxia or hypercapnia Status: Acute Assessment and Plan: patient was transferred from IMU on 03/15/2019 with increasing respiratory distress, tachycardia, hypoxia and was intubated on 03/15/2019. - Chest x-ray shows bilateral diffuse infiltrates - could be related to ARDS secondary to urinary tract infection, pulmonary edema, pneumonia, rheumatoid lung disease, pulmonary fibrosis - continuelow tidal volume and high peep strategy at this time - start bronchodilators - CT angiogram on 03/15/2019 was negative for pulmonary embolism, extensive bilateral airspace disease which may represent a combination of pneumonia and/or edema, pulmonary arterial hypertension, cholelithiasis - nasal MRSA culture pending - check sputum culture - influenza panel was negative. Urine Legionella and strep antigens are pending, urine Histoplasma is pending - continue steroids for possible COPD exacerbation and ARDS (3) Acute UTI: Code(s): N39.0 - Urinary tract infection, site not specified Status: Acute Assessment and Plan: Her UA is suggestive of infection. Urine culture growing Klebsiella and Proteus which are pansensitive, continue cefepime. S (4) Type II diabetes mellitus: Qualifiers: Diabetes mellitus halfway insulin use: without long term care social worker use Diabetes mellitus complication status: with neurologic complications Diabetes mellitus complication detail: with unspecified neuropathy Qualified Code(s): E11.40 - Type 2 diabetes mellitus with diabetic neuropathy, unspecified Code(s): E11.9 - Type 2 diabetes mellitus without complications Status: Acute Assessment and Plan: will hold all oral hypoglycemic agents and place her on sliding scale insulin for now. Patient is NPO. (5) Rheumatoid arthritis: Qualifiers: Rheumatoid arthritis location: unspecified site Rheumatoid factor presence: unspecified presence Qualified Code(s): M06.9 - Rheumatoid arthritis, unspecified Code(s): M06.9 - Rheumatoid arthritis, unspecified Status: Acute Assessment and Plan: Patient has longstanding rheumatoid arthritis and is on immuno modulatory medications. She also received a Depo-Medrol shot for her rheumatoid arthritis recently. Hence she is immunocompromised. I am not sure how severe is her lung disease with her rheumatoid arthritis and chronic tobacco abuse. 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
[2019-03-16 12:42] LABS: Glucose Point of Care 168 (65-105)
[2019-03-16] MEDS: LACTATED RINGERS 1,000 ML 75 ML IV CONT (13:31)
[2019-03-16 17:50] LABS: Glucose Point of Care 151 (65-105)
[2019-03-16] MEDS: ALBUTEROL SULFATE NEB 2.5 MG/0.5 ML INH 5 MG INHALATION (20:54)
[2019-03-16] MEDS: IPRATROPIUM BR 0.02% INH SOLN 0.5 MG/2.5 ML VIAL INHALATION (20:54)
[2019-03-16 23:49] LABS: Glucose Point of Care 158 (65-105)
[2019-03-17] VITALS (32 sets, daily range): BP systolic 114–149; BP diastolic 64–78; PULSE 84–111; RESP 15–25; TEMP 37.2–38.6; O2SAT 95–98
[2019-03-17] MEDS: ALBUTEROL SULFATE NEB 2.5 MG/0.5 ML INH 5 MG INHALATION ×4 (02:04→19:14)
[2019-03-17] MEDS: IPRATROPIUM BR 0.02% INH SOLN 0.5 MG/2.5 ML VIAL INHALATION ×4 (02:04→19:13)
[2019-03-17 05:07] LABS: Alveolar/Arterial O2 Gradient 181.4 mmHg; Base Excess ABG -1.7 mEq/l (+/-2.0); Carboxyhemoglobin 0.3 % THb (0-2.0); Device VENTILATOR; Fractional Inspired Oxygen 45 %; HCO3 ABG 22.4 mEq/l (22.0-26.0); Methemoglobin ABG 0.1 %THb (0-1.5); Oxygen Content ABG 12.3 %vol (16.0-22.0); Oxygen Saturation ABG 97.2 % (95.0-100.0); Oxyhemoglobin 94.6 % THb (90.0-100.0); PCO2 ABG 35.1 mmHg (35.0-45.0); PO2 ABG 90.7 mmHg (80.0-100.0); PO2 FiO2 Ratio Arterial Blood 2.02 %; Site Drawn ARTLINE; Total Hemoglobin 9.1 g/dL (12.0-18.0); pH ABG 7.423 (7.350-7.450)
[2019-03-17 05:08] LABS: Arterial Blood Gas PEEP 10 cmH2O; Arterial Blood Gas Tidal Volume 400 ml; Arterial Blood Gas Vent Mode CMV; Arterial Blood Gas Ventilator rate 24 /MIN
[2019-03-17] MEDS: methylPREDNISolone SOD SUCC 40 MG VIAL IV PUSH ×3 (05:13→21:03)
[2019-03-17] MEDS: LEVOTHYROXINE SODIUM 100 MCG TABLET FEED TUBE (05:14)
[2019-03-17 05:15] LABS: Hematocrit 27.3 % (37.0-47.0); Hemoglobin 8.7 g/dL (12.0-15.0); Mean Corpuscular HGB Conc 31.9 g/dl (32-36); Mean Corpuscular Hemoglobin 28.3 pg (26-34); Mean Corpuscular Volume 88.9 fl (80-100); Mean Platelet Volume 11.2 fl (7.4-10.4); Platelet Count Result 93 k/mm3 (150-375); Red Blood Count 3.07 M/mm3 (4.2-5.4); Red Cell Distribution Width 16.4 % (11.5-14.5)
[2019-03-17 05:31] LABS: Alanine Aminotransferase 15 U/L (4-35); Albumin Level 2.7 g/dL (3.5-5.1); Alkaline Phosphatase 103 U/L (38-126); Aspartate Amino Transferase 32 U/L (14-36); Bilirubin,Total 0.4 mg/dL (0.2-1.3); Blood Urea Nitrogen 30 mg/dL (7-17); Calcium 8.8 mg/dL (8.4-10.2); Carbon Dioxide 27 mmol/L (22-30); Chloride 113 mmol/L (98-107); Estimated CRCL calculation 66 ml/min; Estimated Glomerular Filt Rate > 60; Glucose 150 mg/dL (65-105); Magnesium 2.1 mg/dL (1.6-2.3); Phosphorus 2.4 mg/dL (2.5-4.5); Potassium 3.7 mmol/L (3.4-5.0); Sodium 142 mmol/L (137-145)
[2019-03-17] MEDS: LACTATED RINGERS 1,000 ML 75 ML IV CONT ×2 (06:09→21:04)
[2019-03-17 06:11] LABS: Vancomycin Trough 12.2 ug/mL (10.0-20.0)
--- NOTE | 2019-03-17 08:36 | PM.IMPN ---
Progress Note: A&P Assessment and Plan (1) Acute respiratory failure: Qualifiers: Respiratory failure complication: hypoxia Qualified Code(s): J96.01 - Acute respiratory failure with hypoxia Code(s): J96.00 - Acute respiratory failure, unspecified whether with hypoxia or hypercapnia Status: Acute Assessment and Plan: Remains intubated in ICU. Management of ventilator per public weigher. Remains sedated with fentanyl. CTA chest no pulmonary embolism but extensive bilateral airspace disease. Echocardiogram with diastolic dysfunction grade 2, severe pulmonary hypertension and EF greater than 75%. Continue treatment of infectious processes as noted below. (2) Septic shock: Code(s): A41.9 - Sepsis, unspecified organism; R65.21 - Severe sepsis with septic shock Status: Acute Assessment and Plan: Has been able to wean off pressor agents. Blood pressure reviewed on 03/17/2019 and stable. Urine culture now positive for Klebsiella and Proteus. All blood cultures pending. MRSA nasal culture negative. Currently on IV cefepime and vancomycin. Continue IV fluids restarted after transfer to ICU. WBC remains normal. (3) Pneumonia: Qualifiers: Laterality: bilateral Lung location: unspecified part of lung Pneumonia type: due to unspecified organism Qualified Code(s): J18.9 - Pneumonia, unspecified organism Code(s): J18.9 - Pneumonia, unspecified organism Status: Acute Assessment and Plan: CTA chest as noted above. Chest x-ray today with persistence of bilateral infiltrates. Continue IV antibiotics as noted. Continue IV steroids. Will monitor. (4) Acute UTI: Code(s): N39.0 - Urinary tract infection, site not specified Status: Acute Assessment and Plan: Urine culture now growing Klebsiella pneumoniae and Proteus mirabilis. Both sensitive to IV cefepime and will continue. (5) Metabolic acidosis with normal anion gap and failure of bicarbonate regeneration: Code(s): E87.2 - Acidosis Status: Acute Assessment and Plan: Initial acidosis not entirely clear but and does appear to be related to infection. Continue treatment of above issues. Acidosis has now corrected. (6) Hypokalemia: Code(s): E87.6 - Hypokalemia Status: Acute Assessment and Plan: Potassium better at 3.7 today. Will continue to follow and replace as needed. (7) Anemia: Qualifiers: Anemia type: unspecified type Qualified Code(s): D64.9 - Anemia, unspecified Code(s): D64.9 - Anemia, unspecified Status: Acute Assessment and Plan: Acute on chronic anemia. Iron studies are normal at this point. Vitamin B12 and folate levels are okay. Hemoglobin dropped to 6.9 on 03/16/2019 requiring transfusion of 1 unit PRBC. Hemoglobin better today at 8.7. Will continue to monitor. Transfuse as needed. (8) Dehydration: Code(s): E86.0 - Dehydration Status: Acute Assessment and Plan: Clinically dehydrated on admission. IV fluids restarted after intubation. Will continue monitor. (9) HTN (hypertension): Qualifiers: Hypertension type: essential hypertension Qualified Code(s): I10 - Essential (primary) hypertension Code(s): I10 - Essential (primary) hypertension Status: Acute Assessment and Plan: Home lisinopril remains on hold. With diastolic dysfunction, low-dose Coreg started today. Blood pressure currently stable. Will monitor. Telemetry reviewed on 03/17/2019 with sinus rhythm. (10) Candidiasis of mouth: Code(s): B37.0 - Candidal stomatitis Status: Acute Assessment and Plan: Was receiving IV fluconazole before intubation. Unable to assess at this time. (11) Type II diabetes mellitus: Qualifiers: Diabetes mellitus complication detail: with unspecified neuropathy Diabetes mellitus complication status: with neurologic com
[2019-03-17] MEDS: ACETAMINOPHEN 325 MG TABLET 650 MG PO ×2 (10:44→23:19)
--- NOTE | 2019-03-17 10:46 | PCDIET ---
Nutrition Follow-Up Complete: Nutrition Diagnosis: Unintended weight loss related to nausea and decreased appetite as evidenced by reported weight loss of 7-8 pounds and refusal of AM meal on 03/14. Nutrition Goal: Patient will consume >50% of all meals and drink Glucerna. Goal not met, as patient intubated with tube feedings advancing toward goal rate. RN reports tolerating well thus far and currently infusing at 40mL/hr (Glucerna 1.2 with goal of 60mL/hr). Last recorded weight is 79.5 kg which is increased from last review. I/O positive. Bowel Motility: No documented bowel movement as of yet. No gastric residuals reported. Labs Reviewed: Glu (150), BUN (30), Cl (113), Alb (2.7), Hgb (8.7), Hct (27.3) Meds Noted: KCl, KPhos, Vancomycin, Cefepime, Precedex, Fentanyl, Folic Acid, Solu Medrol, Albuterol, Pepcid, Novolog, LR @ 75mL/hr Additional Notes: LE and right finger ulcers documented. Recommend continuing present tube feeding, advancing toward goal of 60mL/hr. New goal: patient to meet estimated nutritional needs. Nutrition Monitoring and Evaluation: Follow up every Wednesday/Wednesday. Follow daily in ICU rounds.
[2019-03-17] MEDS: POTASSIUM PHOS,M-BASIC-D-BASIC 20 MMOL in SODIUM CHLORIDE 0.9% IV 250 ML 62.5 MMOL IVPB (11:04)
[2019-03-17] MEDS: carvediloL 3.125 MG TABLET PO ×2 (11:05→21:03)
[2019-03-17] MEDS: GABAPENTIN 300 MG CAPSULE 600 MG PO ×2 (11:05→21:02)
[2019-03-17] MEDS: PRAVASTATIN SODIUM 20 MG TABLET 40 MG FEED TUBE (11:05)
[2019-03-17] MEDS: POTASSIUM CHLORIDE 10 MEQ TABLET.ER PO (11:06)
[2019-03-17] MEDS: FOLIC ACID 1 MG TABLET PO (11:06)
[2019-03-17] MEDS: busPIRone HCL 5 MG TABLET FEED TUBE (11:06)
[2019-03-17] MEDS: busPIRone HCL 2.5 MG TABLET PO (11:06)
[2019-03-17] MEDS: CITALOPRAM HYDROBROMIDE 20 MG TABLET 40 MG PO (11:06)
[2019-03-17] MEDS: FAMOTIDINE 20 MG/2 ML VIAL IV PUSH ×2 (11:06→21:03)
[2019-03-17] MEDS: TOLNAFTATE 1% POWDER 45 GM BTL 1 APPLIC TOPICAL ×2 (11:07→21:05)
[2019-03-17 12:48] LABS: Glucose Point of Care 159 (65-105)
--- NOTE | 2019-03-17 13:56 | WPDINTPN ---
Progress Note: A&P Assessment and Plan (1) Septic shock: Code(s): A41.9 - Sepsis, unspecified organism; R65.21 - Severe sepsis with septic shock Status: Acute Assessment and Plan: RESOLVED: - patient initially admitted with hypotension, septic shock requiring Levophed and Javad-Synephrine, CURRENTLY OF BOTH VASOPRESSORS - likely source is urine and lungs - continue cefepime and vancomycin - urine cultures positive for Klebsiella and Proteus ( landry sensitive) - blood cultures from 03/14/2019 NEGATIVE x2 - urine output has been adequate - lactic acid has normalized - patient has an arterial line, does a 20 point difference between arterial blood pressures and cuff pressures - echocardiogram 03/15/2019 showed EF of 75%, grade 2 diastolic dysfunction, severe pulmonary hypertension with RVSP of 77 mmHg (2) Acute respiratory failure: Qualifiers: Respiratory failure complication: hypoxia Qualified Code(s): J96.01 - Acute respiratory failure with hypoxia Code(s): J96.00 - Acute respiratory failure, unspecified whether with hypoxia or hypercapnia Status: Acute Assessment and Plan: patient was transferred from IMU on 03/15/2019 with increasing respiratory distress, tachycardia, hypoxia and was intubated on 03/15/2019. - likely due to ARDS secondary to urinary tract infection, pulmonary edema, pneumonia, rheumatoid lung disease, pulmonary fibrosis - continue low tidal volume and high peep strategy at this time - continue bronchodilators - CT angiogram on 03/15/2019 was negative for pulmonary embolism, extensive bilateral airspace disease which may represent a combination of pneumonia and/or edema, pulmonary arterial hypertension, cholelithiasis - nasal MRSA culture negative - influenza panel was negative. Urine Legionella and strep antigens are pending, urine Histoplasma is pending - continue steroids for possible COPD exacerbation and ARDS (3) Acute UTI: Code(s): N39.0 - Urinary tract infection, site not specified Status: Acute Assessment and Plan: Her UA is suggestive of infection. Urine culture growing Klebsiella and Proteus which are pansensitive, continue cefepime. (4) Type II diabetes mellitus: Qualifiers: Diabetes mellitus long-term insulin use: without long-term use Diabetes mellitus complication status: with neurologic complications Diabetes mellitus complication detail: with unspecified neuropathy Qualified Code(s): E11.40 - Type 2 diabetes mellitus with diabetic neuropathy, unspecified Code(s): E11.9 - Type 2 diabetes mellitus without complications Status: Acute Assessment and Plan: continue sliding scale insulin for now with Accu-Cheks. Patient on tube feeds and tolerating (5) Rheumatoid arthritis: Qualifiers: Rheumatoid arthritis location: unspecified site Rheumatoid factor presence: unspecified presence Qualified Code(s): M06.9 - Rheumatoid arthritis, unspecified Code(s): M06.9 - Rheumatoid arthritis, unspecified Status: Acute Assessment and Plan: Patient has longstanding rheumatoid arthritis and is on immuno modulatory medications. She also received a Depo-Medrol shot for her rheumatoid arthritis recently. Hence she is immunocompromised. I am not sure how severe is her lung disease with her rheumatoid arthritis and chronic tobacco abuse. 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 She is noted to have foot ul
[2019-03-17 18:05] LABS: Glucose Point of Care 180 (65-105)
[2019-03-17 23:15] LABS: Glucose Point of Care 169 (65-105)
[2019-03-18] VITALS (33 sets, daily range): BP systolic 115–150; BP diastolic 61–79; PULSE 77–103; RESP 18–27; TEMP 37.2–38.4; O2SAT 91–97
[2019-03-18] MEDS: IPRATROPIUM BR 0.02% INH SOLN 0.5 MG/2.5 ML VIAL INHALATION ×4 (01:45→20:18)
[2019-03-18] MEDS: ALBUTEROL SULFATE NEB 2.5 MG/0.5 ML INH 5 MG INHALATION ×4 (01:45→20:18)
[2019-03-18 03:13] LABS: Methylmalonic Acid 68 nmol/L (87-318)
[2019-03-18 04:59] LABS: Base Excess ABG 2.8 mEq/l (+/-2.0); Carboxyhemoglobin 0.3 % THb (0-2.0); Fractional Inspired Oxygen 40 %; HCO3 ABG 27.3 mEq/l (22.0-26.0); Methemoglobin ABG 0.1 %THb (0-1.5); Oxygen Content ABG 11.6 %vol (16.0-22.0); Oxyhemoglobin 93.1 % THb (90.0-100.0); PCO2 ABG 41.8 mmHg (35.0-45.0); PO2 ABG 79.1 mmHg (80.0-100.0); PO2 FiO2 Ratio Arterial Blood 1.98 %; Reduced Hemoglobin 6.5 %THb (0-5.0); Total Hemoglobin 8.8 g/dL (12.0-18.0); pH ABG 7.433 (7.350-7.450)
[2019-03-18 05:00] LABS: Arterial Blood Gas Vent Mode CMV; Arterial Blood Gas Ventilator rate 24 /MIN; Device VENTILATOR; Site Drawn ARTLINE
[2019-03-18 05:01] LABS: Arterial Blood Gas PEEP 10 cmH2O; Arterial Blood Gas Tidal Volume 400 ml
[2019-03-18] MEDS: methylPREDNISolone SOD SUCC 40 MG VIAL IV PUSH ×3 (05:30→21:49)
[2019-03-18] MEDS: LEVOTHYROXINE SODIUM 100 MCG TABLET FEED TUBE (05:31)
[2019-03-18] MEDS: LACTATED RINGERS 1,000 ML 75 ML IV CONT ×2 (05:31→21:22)
[2019-03-18 06:01] LABS: Hematocrit 27.9 % (37.0-47.0); Hemoglobin 8.6 g/dL (12.0-15.0); Mean Corpuscular HGB Conc 30.8 g/dl (32-36); Mean Corpuscular Hemoglobin 28.3 pg (26-34); Mean Corpuscular Volume 91.8 fl (80-100); Platelet Count Result 78 k/mm3 (150-375); Red Blood Count 3.04 M/mm3 (4.2-5.4); White Blood Count 10.2 K/mm3 (4.5-10.0)
[2019-03-18 06:22] LABS: Blood Urea Nitrogen 29 mg/dL (7-17); Calcium 8.4 mg/dL (8.4-10.2); Carbon Dioxide 27 mmol/L (22-30); Chloride 112 mmol/L (98-107); Estimated CRCL calculation 88 ml/min; Estimated Glomerular Filt Rate > 60; Glucose 161 mg/dL (65-105); Magnesium 2.1 mg/dL (1.6-2.3); Phosphorus 2.6 mg/dL (2.5-4.5); Sodium 143 mmol/L (137-145)
[2019-03-18] MEDS: ACETAMINOPHEN 325 MG TABLET 650 MG PO ×2 (07:58→13:55)
--- NOTE | 2019-03-18 07:59 | PM.IMPN ---
Progress Note: A&P Assessment and Plan (1) Acute respiratory failure: Qualifiers: Respiratory failure complication: hypoxia Qualified Code(s): J96.01 - Acute respiratory failure with hypoxia Code(s): J96.00 - Acute respiratory failure, unspecified whether with hypoxia or hypercapnia Status: Acute Assessment and Plan: Remains intubated in ICU. Management of ventilator per avionics manager. Remains sedated with fentanyl but responsive and follows commands. CTA chest no pulmonary embolism but extensive bilateral airspace disease. Echocardiogram with diastolic dysfunction grade 2, severe pulmonary hypertension and EF greater than 75%. Continue treatment of infectious processes as noted below. Tolerating tube feedings. (2) Septic shock: Code(s): A41.9 - Sepsis, unspecified organism; R65.21 - Severe sepsis with septic shock Status: Acute Assessment and Plan: Remains off pressors. Urine culture positive for Klebsiella and Proteus. All blood cultures negative thus far. MRSA nasal culture negative. Continue IV cefepime and vancomycin. Continue IV fluids restarted after transfer to ICU. WBC remains normal. (3) Pneumonia: Qualifiers: Laterality: bilateral Lung location: unspecified part of lung Pneumonia type: due to unspecified organism Qualified Code(s): J18.9 - Pneumonia, unspecified organism Code(s): J18.9 - Pneumonia, unspecified organism Status: Acute Assessment and Plan: CTA chest as noted above. Chest x-ray today with persistence of bilateral infiltrates but improving clinically. Continue IV antibiotics as noted. Continue IV steroids. Will monitor. (4) Acute UTI: Code(s): N39.0 - Urinary tract infection, site not specified Status: Acute Assessment and Plan: Urine culture now growing Klebsiella pneumoniae and Proteus mirabilis. Both sensitive to IV cefepime and will continue. (5) HTN (hypertension): Qualifiers: Hypertension type: essential hypertension Qualified Code(s): I10 - Essential (primary) hypertension Code(s): I10 - Essential (primary) hypertension Status: Acute Assessment and Plan: Blood pressure reviewed on 03/18/2019 with slight elevation. Some improvement with Coreg started on 03/17/2019. Discussed with avionics manager. Restart lisinopril today. Will continue to monitor. Telemetry reviewed on 03/18/2019 with sinus rhythm. (6) Anemia: Qualifiers: Anemia type: unspecified type Qualified Code(s): D64.9 - Anemia, unspecified Code(s): D64.9 - Anemia, unspecified Status: Acute Assessment and Plan: Acute on chronic anemia. Iron studies are normal at this point. Vitamin B12 and folate levels are okay. Hemoglobin dropped to 6.9 on 03/16/2019 requiring transfusion of 1 unit PRBC. Hemoglobin stable at 8.6 today. Will continue to monitor. Transfuse as needed. (7) Metabolic acidosis with normal anion gap and failure of bicarbonate regeneration: Code(s): E87.2 - Acidosis Status: Acute Assessment and Plan: Initial acidosis not entirely clear but now does appear to be related to infection. Continue treatment of above issues. Acidosis has now corrected. (8) Hypokalemia: Code(s): E87.6 - Hypokalemia Status: Acute Assessment and Plan: Potassium 4.0 today. Will continue to follow and replace as needed. (9) Type II diabetes mellitus: Qualifiers: Diabetes mellitus complication detail: with unspecified neuropathy Diabetes mellitus complication status: with neurologic complications Diabetes mellitus watermelon inspector insulin use: without watermelon inspector use Qualified Code(s): E11.40 - Type 2 diabetes mellitus with diabetic neuropathy, unspecified Code(s): E11.9 - Type 2 diabetes mellitus without complications Status: Acute Assessment and Plan: Had problems with severe hypoglycemia 1 year ago with med
[2019-03-18] MEDS: POTASSIUM CHLORIDE 10 MEQ TABLET.ER PO (08:00)
[2019-03-18] MEDS: busPIRone HCL 5 MG TABLET FEED TUBE (08:00)
[2019-03-18] MEDS: FAMOTIDINE 20 MG/2 ML VIAL IV PUSH ×2 (08:00→21:47)
[2019-03-18] MEDS: carvediloL 3.125 MG TABLET PO ×2 (08:00→21:48)
[2019-03-18] MEDS: PRAVASTATIN SODIUM 20 MG TABLET 40 MG FEED TUBE (08:01)
[2019-03-18] MEDS: busPIRone HCL 2.5 MG TABLET PO (08:01)
[2019-03-18] MEDS: GABAPENTIN 300 MG CAPSULE 600 MG PO ×2 (08:01→21:48)
[2019-03-18] MEDS: FOLIC ACID 1 MG TABLET PO (08:01)
[2019-03-18] MEDS: TOLNAFTATE 1% POWDER 45 GM BTL 1 APPLIC TOPICAL ×2 (08:02→21:47)
[2019-03-18] MEDS: CITALOPRAM HYDROBROMIDE 20 MG TABLET 40 MG PO (08:38)
[2019-03-18] MEDS: lisinopriL 5 MG TABLET PO (08:39)
[2019-03-18 12:08] LABS: Glucose Point of Care 176 (65-105)
--- NOTE | 2019-03-18 12:51 | WPDINTPN ---
Progress Note: A&P Assessment and Plan (1) Septic shock: Code(s): A41.9 - Sepsis, unspecified organism; R65.21 - Severe sepsis with septic shock Status: Acute Assessment and Plan: RESOLVED: - CURRENTLY OF BOTH VASOPRESSORS - likely source is urine and lungs - continue cefepime and vancomycin - urine cultures positive for Klebsiella and Proteus ( landry sensitive) - blood cultures from 03/14/2019 NEGATIVE x2 - urine output has been adequate - patient has an arterial line, does a 20 point difference between arterial blood pressures and cuff pressures - echocardiogram 03/15/2019 showed EF of 75%, grade 2 diastolic dysfunction, severe pulmonary hypertension with RVSP of 77 mmHg - patient with fevers, will obtain blood cultures (2) Acute respiratory failure: Qualifiers: Respiratory failure complication: hypoxia Qualified Code(s): J96.01 - Acute respiratory failure with hypoxia Code(s): J96.00 - Acute respiratory failure, unspecified whether with hypoxia or hypercapnia Status: Acute Assessment and Plan: patient was transferred from IMU on 03/15/2019 with increasing respiratory distress, tachycardia, hypoxia and was intubated on 03/15/2019. - likely due to ARDS secondary to urinary tract infection, pulmonary edema, pneumonia, rheumatoid lung disease, pulmonary fibrosis - continue low tidal volume and high peep strategy at this time - continue bronchodilators - CT angiogram on 03/15/2019 was negative for pulmonary embolism, extensive bilateral airspace disease which may represent a combination of pneumonia and/or edema, pulmonary arterial hypertension, cholelithiasis - nasal MRSA culture negative - influenza panel was negative. Urine Legionella and strep antigens are pending, urine Histoplasma is pending - continue steroids for possible COPD exacerbation and ARDS (3) Acute UTI: Code(s): N39.0 - Urinary tract infection, site not specified Status: Acute Assessment and Plan: Her UA is suggestive of infection. Urine culture growing Klebsiella and Proteus which are pansensitive, continue cefepime. (4) Type II diabetes mellitus: Qualifiers: Diabetes mellitus halfway insulin use: without halfway use Diabetes mellitus complication status: with neurologic complications Diabetes mellitus complication detail: with unspecified neuropathy Qualified Code(s): E11.40 - Type 2 diabetes mellitus with diabetic neuropathy, unspecified Code(s): E11.9 - Type 2 diabetes mellitus without complications Status: Acute Assessment and Plan: continue sliding scale insulin for now with Accu-Cheks. Patient on tube feeds and tolerating (5) Rheumatoid arthritis: Qualifiers: Rheumatoid arthritis location: unspecified site Rheumatoid factor presence: unspecified presence Qualified Code(s): M06.9 - Rheumatoid arthritis, unspecified Code(s): M06.9 - Rheumatoid arthritis, unspecified Status: Acute Assessment and Plan: Patient has longstanding rheumatoid arthritis and is on immuno modulatory medications. She also received a Depo-Medrol shot for her rheumatoid arthritis recently. Hence she is immunocompromised. I am not sure how severe is her lung disease with her rheumatoid arthritis and chronic tobacco abuse. 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 She is noted to have foot ulcerations with poor healing likely due to poor circulation. - atrial Doppl
[2019-03-18 15:09] LABS: Pneumococcal Antigen Urine Not Detected (Not Detected)
[2019-03-18 16:25] LABS: Legionella pneumophila Ag Ur Not Detected (Not Detected)
[2019-03-18 18:03] LABS: Glucose Point of Care 199 (65-105)
[2019-03-18 20:51] LABS: Vancomycin Trough 15.8 ug/mL (10.0-20.0)
[2019-03-19] VITALS (36 sets, daily range): BP systolic 109–153; BP diastolic 66–94; PULSE 80–114; RESP 11–24; TEMP 36.4–38; O2SAT 87–100
[2019-03-19] MEDS: INSULIN ASPART (*BKC) 100 UNITS/ML SUB-Q (00:53)
[2019-03-19 01:42] LABS: Glucose Point of Care 204 (65-105)
[2019-03-19] MEDS: IPRATROPIUM BR 0.02% INH SOLN 0.5 MG/2.5 ML VIAL INHALATION ×5 (02:00→22:11)
[2019-03-19] MEDS: ALBUTEROL SULFATE NEB 2.5 MG/0.5 ML INH 5 MG INHALATION ×5 (02:00→22:10)
[2019-03-19 04:23] LABS: Hematocrit 26.3 % (37.0-47.0); Hemoglobin 8.1 g/dL (12.0-15.0); Immature Platelet Fraction Pct 7.2 % (0.9-11.2); Mean Corpuscular HGB Conc 30.8 g/dl (32-36); Mean Corpuscular Hemoglobin 28.6 pg (26-34); Mean Corpuscular Volume 92.9 fl (80-100); Mean Platelet Volume 12.6 fl (7.4-10.4); Platelet Count Result 62 k/mm3 (150-375); Red Blood Count 2.83 M/mm3 (4.2-5.4); Red Cell Distribution Width 16.9 % (11.5-14.5); White Blood Count 9.9 K/mm3 (4.5-10.0)
[2019-03-19 04:29] LABS: Alveolar/Arterial O2 Gradient 193.3 mmHg; Base Excess ABG 2.4 mEq/l (+/-2.0); Carboxyhemoglobin 0.3 % THb (0-2.0); Fractional Inspired Oxygen 45 %; HCO3 ABG 26.5 mEq/l (22.0-26.0); Methemoglobin ABG 0.2 %THb (0-1.5); Oxygen Content ABG 11.7 %vol (16.0-22.0); Oxygen Saturation ABG 96.7 % (95.0-100.0); Oxyhemoglobin 93.9 % THb (90.0-100.0); PCO2 ABG 38.6 mmHg (35.0-45.0); PO2 ABG 83.6 mmHg (80.0-100.0); PO2 FiO2 Ratio Arterial Blood 1.86 %; Reduced Hemoglobin 5.6 %THb (0-5.0); Total Hemoglobin 8.8 g/dL (12.0-18.0); pH ABG 7.454 (7.350-7.450)
[2019-03-19 04:32] LABS: Arterial Blood Gas Vent Mode CMV; Arterial Blood Gas Ventilator rate 24 /MIN; Device VENTILATOR; Modified Allen's Test Pass; Site Drawn ARTLINE
[2019-03-19 04:33] LABS: Arterial Blood Gas PEEP 10 cmH2O; Arterial Blood Gas Tidal Volume 400 ml
[2019-03-19 04:45] LABS: Blood Urea Nitrogen 23 mg/dL (7-17); Calcium 8.1 mg/dL (8.4-10.2); Carbon Dioxide 28 mmol/L (22-30); Chloride 111 mmol/L (98-107); Estimated CRCL calculation 106 ml/min; Estimated Glomerular Filt Rate > 60; Glucose 187 mg/dL (65-105); Magnesium 2.1 mg/dL (1.6-2.3); Phosphorus 2.4 mg/dL (2.5-4.5); Potassium 3.9 mmol/L (3.4-5.0); Sodium 142 mmol/L (137-145)
[2019-03-19] MEDS: methylPREDNISolone SOD SUCC 40 MG VIAL IV PUSH ×3 (05:53→21:17)
[2019-03-19] MEDS: LEVOTHYROXINE SODIUM 100 MCG TABLET FEED TUBE (05:53)
[2019-03-19] MEDS: CITALOPRAM HYDROBROMIDE 20 MG TABLET 40 MG PO (08:40)
[2019-03-19] MEDS: lisinopriL 5 MG TABLET PO (08:40)
[2019-03-19] MEDS: POTASSIUM/PHOSPHORUS/SODIUM 1.5 GM PACKET 1 PACKET FEED TUBE (08:40)
[2019-03-19] MEDS: carvediloL 3.125 MG TABLET PO (08:40)
[2019-03-19] MEDS: busPIRone HCL 2.5 MG TABLET PO (08:40)
[2019-03-19] MEDS: POTASSIUM CHLORIDE 10 MEQ TABLET.ER PO (08:40)
[2019-03-19] MEDS: busPIRone HCL 5 MG TABLET FEED TUBE (08:40)
[2019-03-19] MEDS: FAMOTIDINE 20 MG/2 ML VIAL IV PUSH (08:41)
[2019-03-19] MEDS: PRAVASTATIN SODIUM 20 MG TABLET 40 MG FEED TUBE (08:41)
[2019-03-19] MEDS: TOLNAFTATE 1% POWDER 45 GM BTL 1 APPLIC TOPICAL ×2 (08:41→20:37)
[2019-03-19] MEDS: FOLIC ACID 1 MG TABLET PO (08:41)
[2019-03-19] MEDS: GABAPENTIN 300 MG CAPSULE 600 MG PO (08:41)
--- NOTE | 2019-03-19 08:42 | PM.IMPN ---
Progress Note: A&P Assessment and Plan (1) Acute respiratory failure: Qualifiers: Respiratory failure complication: hypoxia Qualified Code(s): J96.01 - Acute respiratory failure with hypoxia Code(s): J96.00 - Acute respiratory failure, unspecified whether with hypoxia or hypercapnia Status: Acute Assessment and Plan: Remains intubated in ICU. Management of ventilator per teasel setter. Remains sedated with fentanyl but responsive and follows commands. CTA chest no pulmonary embolism but extensive bilateral airspace disease. Echocardiogram with diastolic dysfunction grade 2, severe pulmonary hypertension and EF greater than 75%. Continue treatment of infectious processes as noted below. Tolerating tube feedings. Discussed with teasel setter. Plan to switch sedation to Precedex with possible weaning/extubation depending on how she is doing. Will follow. (2) Septic shock: Code(s): A41.9 - Sepsis, unspecified organism; R65.21 - Severe sepsis with septic shock Status: Acute Assessment and Plan: Remains off pressors with blood pressure stable. Urine culture positive for Klebsiella and Proteus. All blood cultures negative thus far. MRSA nasal culture negative. Continue IV cefepime and vancomycin. Continue IV fluids restarted after transfer to ICU. WBC remains normal. (3) Pneumonia: Qualifiers: Pneumonia type: due to unspecified organism Laterality: bilateral Lung location: unspecified part of lung Qualified Code(s): J18.9 - Pneumonia, unspecified organism Code(s): J18.9 - Pneumonia, unspecified organism Status: Acute Assessment and Plan: CTA chest as noted above. Chest x-ray today with improvement in infiltrates. Continue IV antibiotics as noted. Continue IV steroids. Will monitor. (4) Acute UTI: Code(s): N39.0 - Urinary tract infection, site not specified Status: Acute Assessment and Plan: Urine culture now growing Klebsiella pneumoniae and Proteus mirabilis. Both sensitive to IV cefepime. Continue IV cefepime for now. (5) HTN (hypertension): Qualifiers: Hypertension type: essential hypertension Qualified Code(s): I10 - Essential (primary) hypertension Code(s): I10 - Essential (primary) hypertension Status: Acute Assessment and Plan: Blood pressure reviewed on 03/19/2019 and now in acceptable range. Will continue Coreg and lisinopril. Will continue to monitor and adjust treatment as needed. Telemetry reviewed on 03/19/2019 with sinus rhythm. (6) Anemia: Qualifiers: Anemia type: unspecified type Qualified Code(s): D64.9 - Anemia, unspecified Code(s): D64.9 - Anemia, unspecified Status: Acute Assessment and Plan: Acute on chronic anemia. Iron studies are normal at this point. Vitamin B12 and folate levels are okay. Hemoglobin dropped to 6.9 on 03/16/2019 requiring transfusion of 1 unit PRBC. Hemoglobin 8.1 today and stable. Will continue to monitor. Transfuse as needed. (7) Hypokalemia: Code(s): E87.6 - Hypokalemia Status: Acute Assessment and Plan: Potassium stable at 3.9 today. Will continue to follow and replace as needed. (8) Type II diabetes mellitus: Qualifiers: Diabetes mellitus senior living insulin use: without advisor consultant use Diabetes mellitus complication status: with neurologic complications Diabetes mellitus complication detail: with unspecified neuropathy Qualified Code(s): E11.40 - Type 2 diabetes mellitus with diabetic neuropathy, unspecified Code(s): E11.9 - Type 2 diabetes mellitus without complications Status: Acute Assessment and Plan: Had problems with severe hypoglycemia 1 year ago with medications. Currently not on medication at home. Glucose reviewed on 03/19/2019 and remains acceptable. Sliding scale insulin in place. Will continue to monitor. Continue home gabapentin for
--- NOTE | 2019-03-19 11:48 | PC.NURSE ---
At 1120 patient was cleaned up of bowel movement, upon turning patient her ETT became dislodged to 16 cm, Dr. Cooper and RT were called to bedside, all sedation was stopped and patient extubated to venti mask
[2019-03-19 11:49] LABS: Glucose Point of Care 191 (65-105)
[2019-03-19] MEDS: racEPINEPHrine 2.25% NEBU SOLN 0.5 ML VIAL.NEB INHALATION (12:05)
--- NOTE | 2019-03-19 13:22 | WPDINTPN ---
Progress Note: A&P Assessment and Plan (1) Septic shock: Code(s): A41.9 - Sepsis, unspecified organism; R65.21 - Severe sepsis with septic shock Status: Acute Assessment and Plan: RESOLVED: - CURRENTLY OF BOTH VASOPRESSORS - likely source is urine and lungs - continue cefepime and vancomycin - urine cultures positive for Klebsiella and Proteus ( landry sensitive) - blood cultures from 03/14/2019 NEGATIVE x2, patient febrile, repeat blood cultures pending - blood pressures have been stable, will remove arterial line - echocardiogram 03/15/2019 showed EF of 75%, grade 2 diastolic dysfunction, severe pulmonary hypertension with RVSP of 77 mmHg (2) Acute respiratory failure: Qualifiers: Respiratory failure complication: hypoxia Qualified Code(s): J96.01 - Acute respiratory failure with hypoxia Code(s): J96.00 - Acute respiratory failure, unspecified whether with hypoxia or hypercapnia Status: Acute Assessment and Plan: patient was transferred from IMU on 03/15/2019 with increasing respiratory distress, tachycardia, hypoxia and was intubated on 03/15/2019. - likely due to ARDS secondary to urinary tract infection, pulmonary edema, pneumonia, rheumatoid lung disease, pulmonary fibrosis - chest x-ray and ABGs much improved. - continue bronchodilators - CT angiogram on 03/15/2019 was negative for pulmonary embolism, extensive bilateral airspace disease which may represent a combination of pneumonia and/or edema, pulmonary arterial hypertension, cholelithiasis - influenza panel was negative. Urine Legionella and strep pneumococcal antigens were negative, urine Histoplasma is pending - continue steroids for possible COPD exacerbation and ARDS - will place patient on SBT today and evaluate for extubation (3) Acute UTI: Code(s): N39.0 - Urinary tract infection, site not specified Status: Acute Assessment and Plan: Her UA is suggestive of infection. Urine culture growing Klebsiella and Proteus which are pansensitive, continue cefepime. (4) Type II diabetes mellitus: Qualifiers: Diabetes mellitus half-way insulin use: without half-way use Diabetes mellitus complication status: with neurologic complications Diabetes mellitus complication detail: with unspecified neuropathy Qualified Code(s): E11.40 - Type 2 diabetes mellitus with diabetic neuropathy, unspecified Code(s): E11.9 - Type 2 diabetes mellitus without complications Status: Acute Assessment and Plan: continue sliding scale insulin for now with Accu-Cheks. Patient on tube feeds and tolerating (5) Rheumatoid arthritis: Qualifiers: Rheumatoid arthritis location: unspecified site Rheumatoid factor presence: unspecified presence Qualified Code(s): M06.9 - Rheumatoid arthritis, unspecified Code(s): M06.9 - Rheumatoid arthritis, unspecified Status: Acute Assessment and Plan: Patient has longstanding rheumatoid arthritis and is on immuno modulatory medications. She also received a Depo-Medrol shot for her rheumatoid arthritis recently. Hence she is immunocompromised. I am not sure how severe is her lung disease with her rheumatoid arthritis and chronic tobacco abuse. 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 She is noted to have foot ulcerations with poor healing likely due to poor circulation. - atrial Dopplers were done on 03/16/2019 showed Diminished bilateral ankle-
[2019-03-19 18:21] LABS: Glucose Point of Care 184 (65-105)
--- NOTE | 2019-03-19 20:08 | PC.NURSE ---
This RN performed the 1999 assessment on this patient and noticed the patient was unable to follow commands and would not be able to swallow her pills scheduled for 2099. I saw Dr. Rivera walking outside the room so I stopped him and asked if it was OK to non-administer the medications and asked if he wanted anything given in their place. He said to give 5 mg lopressor once since the patient had a 2100 dose of coreg due, and he said to non-administer all the PO medications.
[2019-03-19] MEDS: METOPROLOL TARTRATE INJ 5 MG/5 ML VIAL IV PUSH (20:36)
[2019-03-19 23:59] LABS: Glucose Point of Care 179 (65-105)
[2019-03-20] VITALS (38 sets, daily range): BP systolic 125–150; BP diastolic 69–92; PULSE 77–120; RESP 14–31; TEMP 37.2–39.1; O2SAT 88–100
[2019-03-20] MEDS: IPRATROPIUM BR 0.02% INH SOLN 0.5 MG/2.5 ML VIAL INHALATION ×4 (02:08→21:07)
[2019-03-20] MEDS: ALBUTEROL SULFATE NEB 2.5 MG/0.5 ML INH 5 MG INHALATION ×4 (02:08→21:07)
[2019-03-20 04:07] LABS: Alveolar/Arterial O2 Gradient 290.2 mmHg; Base Excess ABG 5.2 mEq/l (+/-2.0); Carboxyhemoglobin 0.3 % THb (0-2.0); Fractional Inspired Oxygen 60 %; HCO3 ABG 28.9 mEq/l (22.0-26.0); Methemoglobin ABG 0.3 %THb (0-1.5); Oxygen Content ABG 13.8 %vol (16.0-22.0); Oxygen Saturation ABG 97.7 % (95.0-100.0); Oxyhemoglobin 95.4 % THb (90.0-100.0); PCO2 ABG 39.1 mmHg (35.0-45.0); PO2 ABG 94.6 mmHg (80.0-100.0); PO2 FiO2 Ratio Arterial Blood 1.58 %; Total Hemoglobin 10.2 g/dL (12.0-18.0); pH ABG 7.487 (7.350-7.450)
[2019-03-20 04:08] LABS: Device HIGH FLOW THERAPY; Modified Allen's Test Pass; Site Drawn LEFT RADIAL
[2019-03-20 04:19] LABS: Hematocrit 27.8 % (37.0-47.0); Hemoglobin 8.6 g/dL (12.0-15.0); Immature Platelet Fraction Pct 8.5 % (0.9-11.2); Mean Corpuscular HGB Conc 30.9 g/dl (32-36); Mean Corpuscular Hemoglobin 28.5 pg (26-34); Mean Corpuscular Volume 92.1 fl (80-100); Mean Platelet Volume 11.8 fl (7.4-10.4); Platelet Count Result 67 k/mm3 (150-375); Red Blood Count 3.02 M/mm3 (4.2-5.4); Red Cell Distribution Width 16.2 % (11.5-14.5); White Blood Count 9.2 K/mm3 (4.5-10.0)
[2019-03-20 04:32] LABS: Blood Urea Nitrogen 18 mg/dL (7-17); Carbon Dioxide 32 mmol/L (22-30); Chloride 108 mmol/L (98-107); Estimated CRCL calculation 90 ml/min; Estimated Glomerular Filt Rate > 60; Glucose 159 mg/dL (65-105); Magnesium 2.3 mg/dL (1.6-2.3); Phosphorus 2.7 mg/dL (2.5-4.5); Potassium 3.6 mmol/L (3.4-5.0); Sodium 141 mmol/L (137-145)
[2019-03-20] MEDS: methylPREDNISolone SOD SUCC 40 MG VIAL IV PUSH ×3 (06:13→21:08)
--- NOTE | 2019-03-20 08:00 | PM.IMPN ---
Progress Note: A&P Assessment and Plan (1) Acute respiratory failure: Qualifiers: Respiratory failure complication: hypoxia Qualified Code(s): J96.01 - Acute respiratory failure with hypoxia Code(s): J96.00 - Acute respiratory failure, unspecified whether with hypoxia or hypercapnia Status: Acute Assessment and Plan: Now extubated with ET out yesterday afternoon. On high-flow oxygen at 40 L with FiO2 at 55%. CTA chest no pulmonary embolism but extensive bilateral airspace disease. Echocardiogram with diastolic dysfunction grade 2, severe pulmonary hypertension and EF greater than 75%. Continue IV antibiotics as noted below. Discussed with child care team lead. Had hoped for possible transfer out of ICU today but after my visit patient more lethargic. Still having problems with fever. Sputum culture now growing Pseudomonas. Already on IV cefepime. Did not pass swallow test today with most medications held. Continue to monitor in ICU today due to borderline status. (2) Septic shock: Code(s): A41.9 - Sepsis, unspecified organism; R65.21 - Severe sepsis with septic shock Status: Acute Assessment and Plan: Blood pressure reviewed on 03/20/2019 and now stable. Urine culture positive for Klebsiella and Proteus. All blood cultures negative thus far. MRSA nasal culture negative. Continue IV cefepime and vancomycin. WBC remains normal. (3) Pneumonia: Qualifiers: Laterality: bilateral Lung location: unspecified part of lung Pneumonia type: due to unspecified organism Qualified Code(s): J18.9 - Pneumonia, unspecified organism Code(s): J18.9 - Pneumonia, unspecified organism Status: Acute Assessment and Plan: CTA chest as noted above. Chest x-ray today with improvement in infiltrates. Continue IV antibiotics as noted. Continue IV steroids. Will monitor. Sputum culture now positive as noted above. (4) Acute UTI: Code(s): N39.0 - Urinary tract infection, site not specified Status: Acute Assessment and Plan: Urine culture now growing Klebsiella pneumoniae and Proteus mirabilis. Remains on IV cefepime. (5) Dysphagia: Qualifiers: Dysphagia type: unspecified Qualified Code(s): R13.10 - Dysphagia, unspecified Code(s): R13.10 - Dysphagia, unspecified Status: Acute Assessment and Plan: With trouble swallowing pills, will obtain bedside swallow. Further treatment pending those results. Bedside swallow test failed as noted above. Will follow. (6) HTN (hypertension): Qualifiers: Hypertension type: essential hypertension Qualified Code(s): I10 - Essential (primary) hypertension Code(s): I10 - Essential (primary) hypertension Status: Acute Assessment and Plan: Blood pressure reviewed on 03/20/2019 and acceptable. Will continue Coreg and lisinopril. Will continue to monitor and adjust treatment as needed. Telemetry reviewed on 03/20/2019 with sinus rhythm. With failure of swallow test, Coreg and lisinopril now on hold. IV metoprolol being given. Continue to monitor. (7) Anemia: Qualifiers: Anemia type: unspecified type Qualified Code(s): D64.9 - Anemia, unspecified Code(s): D64.9 - Anemia, unspecified Status: Acute Assessment and Plan: Acute on chronic anemia. Iron studies are normal at this point. Vitamin B12 and folate levels are okay. Hemoglobin dropped to 6.9 on 03/16/2019 requiring transfusion of 1 unit PRBC. Hemoglobin stable at 8.6 today. Does now remember having some blood in stool before admission. Will continue to monitor for now. Transfuse as needed. Underlying anemia is anemia of chronic disease but with decrease in Hgb discussed possible further GI evaluation once respiratory status improved. Can do further evaluation as outpatient. (8) Hypokalemia: Code(s): E87.6 - Hypokalemia Status: Acute Asses
[2019-03-20] MEDS: ACETAMINOPHEN 650 MG SUPPOSITORY RECTAL (08:59)
[2019-03-20] MEDS: FUROSEMIDE INJ 40 MG/4 ML VIAL IV PUSH (09:00)
[2019-03-20] MEDS: TOLNAFTATE 1% POWDER 45 GM BTL 1 APPLIC TOPICAL ×2 (09:45→21:08)
[2019-03-20] MEDS: METOPROLOL TARTRATE INJ 5 MG/5 ML VIAL IV PUSH ×4 (10:09→23:57)
[2019-03-20] MEDS: FAMOTIDINE 20 MG/2 ML VIAL IV PUSH ×2 (10:11→21:08)
--- NOTE | 2019-03-20 11:13 | PCSTNOTE ---
Attempted bedside swallow eval. Pt unable to maintain alertness for oral intake. Will re-attempt when pt is more alert.
[2019-03-20 12:07] LABS: Glucose Point of Care 182 (65-105)
--- NOTE | 2019-03-20 14:31 | PCSTNOTE ---
Please refer to the Bedside Swallow Evaluation in the EMR.
--- NOTE | 2019-03-20 14:45 | PCDIET ---
ICU Rounding Note: Tube feedings on hold due to extubation. TELEMETRY REGISTERED NURSE attempted swallow evaluation this morning with plan for re-attempt later today. Last recorded weight is 92.8kg which is significantly increased. Recommend re-weighing to ensure accuracy. Will follow for results of TELEMETRY REGISTERED NURSE evaluation; recommend resuming enteral feedings if unable to safely advance diet. Bowel Motility: +BM today. Labs Reviewed: Glu (182), BUN (18), Cr (0.6), Ca (8.0) Meds Noted: Albuterol, Cefepime, Pepcid, Novolog, Folic Acid, Solu Medrol, Lasix Additional Notes: LE feet and toes with ulcers; groin macerated. Following daily in ICU rounds. Assessing/reassessing every Wednesday/Wednesday.
--- NOTE | 2019-03-20 15:04 | WPDINTPN ---
Progress Note: A&P Assessment and Plan (1) Septic shock: Code(s): A41.9 - Sepsis, unspecified organism; R65.21 - Severe sepsis with septic shock Status: Acute Assessment and Plan: RESOLVED: - CURRENTLY OF BOTH VASOPRESSORS - likely source is urine and lungs - continue cefepime, vanc d/c as nasal MRSA negative - urine cultures positive for Klebsiella and Proteus ( landry sensitive) - blood cultures from 03/14/2019 NEGATIVE x2, patient febrile, repeat blood cultures pending - blood pressures have been stable, will remove arterial line - echocardiogram 03/15/2019 showed EF of 75%, grade 2 diastolic dysfunction, severe pulmonary hypertension with RVSP of 77 mmHg - sputum cx with pseudomonas , sensitivty pending (2) Acute respiratory failure: Qualifiers: Respiratory failure complication: hypoxia Qualified Code(s): J96.01 - Acute respiratory failure with hypoxia Code(s): J96.00 - Acute respiratory failure, unspecified whether with hypoxia or hypercapnia Status: Acute Assessment and Plan: patient was transferred from IMU on 03/15/2019 with increasing respiratory distress, tachycardia, hypoxia and was intubated on 03/15/2019. - likely due to ARDS secondary to urinary tract infection, pulmonary edema, pneumonia, rheumatoid lung disease, pulmonary fibrosis - chest x-ray and ABGs much improved. - continue bronchodilators - CT angiogram on 03/15/2019 was negative for pulmonary embolism, extensive bilateral airspace disease which may represent a combination of pneumonia and/or edema, pulmonary arterial hypertension, cholelithiasis - influenza panel was negative. Urine Legionella and strep pneumococcal antigens were negative, urine Histoplasma is pending - continue steroids for possible COPD exacerbation and ARDS - extubated yesterday - sputum with pseudomonas - on airvo as oxygenation still poor (3) Acute UTI: Code(s): N39.0 - Urinary tract infection, site not specified Status: Acute Assessment and Plan: Her UA is suggestive of infection. Urine culture growing Klebsiella and Proteus which are pansensitive, continue cefepime. . (4) Type II diabetes mellitus: Qualifiers: Diabetes mellitus termite control servicer insulin use: without long-term use Diabetes mellitus complication status: with neurologic complications Diabetes mellitus complication detail: with unspecified neuropathy Qualified Code(s): E11.40 - Type 2 diabetes mellitus with diabetic neuropathy, unspecified Code(s): E11.9 - Type 2 diabetes mellitus without complications Status: Acute Assessment and Plan: continue sliding scale insulin for now with Accu-Cheks. tube feeds d/c as NG out post extubation. Sitll lethargic , will start tube feeds in am. (5) Rheumatoid arthritis: Qualifiers: Rheumatoid arthritis location: unspecified site Rheumatoid factor presence: unspecified presence Qualified Code(s): M06.9 - Rheumatoid arthritis, unspecified Code(s): M06.9 - Rheumatoid arthritis, unspecified Status: Acute Assessment and Plan: Patient has longstanding rheumatoid arthritis and is on immuno modulatory medications. She also received a Depo-Medrol shot for her rheumatoid arthritis recently. Hence she is immunocompromised. I am not sure how severe is her lung disease with her rheumatoid arthritis and chronic tobacco abuse. - CT angio as above - I will hold off on the rheumatoid medications for now Patient has longstanding rheumatoid arthritis and is on immuno modulatory medications. She also received a Depo-Medrol shot for her rheumatoid arthritis recently. Hence she is immunocompromised. I am not sure how severe is her lung disease with her rheumatoid arthritis and chronic tobacco abuse. 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
[2019-03-20 17:18] LABS: Glucose Point of Care 178 (65-105)
[2019-03-21] VITALS (28 sets, daily range): BP systolic 116–146; BP diastolic 69–99; PULSE 65–96; RESP 16–31; TEMP 36.3–38.2; O2SAT 84–99; BMI 10.0
[2019-03-21 00:08] LABS: Glucose Point of Care 185 (65-105)
[2019-03-21] MEDS: LORAZEPAM INJ 2 MG/ML VIAL 0.5 MG IV PUSH (01:53)
[2019-03-21] MEDS: IPRATROPIUM BR 0.02% INH SOLN 0.5 MG/2.5 ML VIAL INHALATION ×4 (02:13→19:25)
[2019-03-21] MEDS: ALBUTEROL SULFATE NEB 2.5 MG/0.5 ML INH 5 MG INHALATION ×4 (02:13→19:25)
[2019-03-21 04:29] LABS: Hematocrit 26.6 % (37.0-47.0); Hemoglobin 8.2 g/dL (12.0-15.0); Immature Platelet Fraction Pct 10.4 % (0.9-11.2); Mean Corpuscular HGB Conc 30.8 g/dl (32-36); Mean Corpuscular Hemoglobin 28.3 pg (26-34); Mean Corpuscular Volume 91.7 fl (80-100); Mean Platelet Volume 13.5 fl (7.4-10.4); Platelet Count Result 75 k/mm3 (150-375); Red Cell Distribution Width 15.8 % (11.5-14.5); White Blood Count 5.8 K/mm3 (4.5-10.0)
[2019-03-21 04:37] LABS: Blood Urea Nitrogen 19 mg/dL (7-17); Calcium 7.6 mg/dL (8.4-10.2); Carbon Dioxide 38 mmol/L (22-30); Chloride 100 mmol/L (98-107); Estimated CRCL calculation 111 ml/min; Estimated Glomerular Filt Rate > 60; Glucose 156 mg/dL (65-105); Magnesium 2.3 mg/dL (1.6-2.3); Phosphorus 2.4 mg/dL (2.5-4.5); Sodium 135 mmol/L (137-145)
[2019-03-21] MEDS: LEVOTHYROXINE SODIUM INJ 100 MCG/5 ML VIAL 50 MCG IV PUSH (06:23)
[2019-03-21] MEDS: methylPREDNISolone SOD SUCC 40 MG VIAL IV PUSH ×3 (06:23→21:27)
[2019-03-21] MEDS: METOPROLOL TARTRATE INJ 5 MG/5 ML VIAL IV PUSH ×2 (06:23→12:13)
[2019-03-21] MEDS: TOLNAFTATE 1% POWDER 45 GM BTL 1 APPLIC TOPICAL ×2 (08:19→21:26)
[2019-03-21] MEDS: FAMOTIDINE 20 MG/2 ML VIAL IV PUSH ×2 (08:20→21:26)
--- NOTE | 2019-03-21 11:44 | PCDIET ---
Nutrition Follow-Up Complete: Nutrition Diagnosis: Unintended weight loss related to nausea and decreased appetite as evidenced by reported weight loss of 7-8 pounds and refusal of AM meal on 03/14. Nutrition Goals: Patient to meet estimated nutritional needs. MACHINIST MECHANIC evaluation completed with recommendation for minced and moist diet which was ordered, along with carbohydrate controlled diet. Patient eating minimally and does not care for texture of food. MD to request re-evaluation of swallow to determine whether consistency can be upgraded. In mean time, recommend Glucerna Shake (220kcal, 10g protein) with meals. Last recorded weight is 76.6 kg which is decreased. I/O negative. Bowel Motility: Last documented bowel movement on 03/20/19. Labs Reviewed: Glu (156), BUN (19), Cr (0.5), K (3.0), Na (135), PO4 (2.4) Meds Noted: KCl, K-Phos, Solu Medrol, Novolog, Albuterol, Maxipime, Pepcid, Folic Acid Additional Notes: Ulcers to feet and right index finger. Recommend continuing same goal. Nutrition Monitoring and Evaluation: Follow up in three days.
[2019-03-21] MEDS: POTASSIUM CHLORIDE 10 MEQ TABLET 40 MEQ PO (12:13)
[2019-03-21 12:18] LABS: Glucose Point of Care 175 (65-105)
[2019-03-21] MEDS: POTASSIUM PHOS,M-BASIC-D-BASIC 20 MMOL in SODIUM CHLORIDE 0.9% IV 250 ML 62.5 MMOL IVPB (13:32)
--- NOTE | 2019-03-21 13:54 | PCSTNOTE ---
Attempted repeat bedside eval this date. Upon entering patient's room, nursing attempting to administer meds via pudding. Pt adamantly refusing any oral intake. Eval not complete.
[2019-03-21] MEDS: busPIRone HCL 5 MG TABLET PO (14:37)
[2019-03-21] MEDS: busPIRone HCL 2.5 MG TABLET PO (14:37)
[2019-03-21] MEDS: CITALOPRAM HYDROBROMIDE 20 MG TABLET 40 MG PO (14:37)
[2019-03-21] MEDS: carvediloL 12.5 MG TABLET PO ×2 (14:38→21:25)
--- NOTE | 2019-03-21 15:58 | WPDINTPN ---
Progress Note: A&P Assessment and Plan (1) Septic shock: Code(s): A41.9 - Sepsis, unspecified organism; R65.21 - Severe sepsis with septic shock Status: Resolved Assessment and Plan: RESOLVED: - CURRENTLY OF BOTH VASOPRESSORS - likely source is urine and lungs - continue cefepime, vanc d/c as nasal MRSA negative - urine cultures positive for Klebsiella and Proteus ( landry sensitive) - blood cultures from 03/14/2019 NEGATIVE x2, patient febrile, repeat blood cultures pending - blood pressures have been stable, arterial line d/c - echocardiogram 03/15/2019 showed EF of 75%, grade 2 diastolic dysfunction, severe pulmonary hypertension with RVSP of 77 mmHg - sputum cx with pseudomonas , sensitive to cefepime (2) Acute respiratory failure: Qualifiers: Respiratory failure complication: hypoxia Qualified Code(s): J96.01 - Acute respiratory failure with hypoxia Code(s): J96.00 - Acute respiratory failure, unspecified whether with hypoxia or hypercapnia Status: Acute Assessment and Plan: patient was transferred from IMU on 03/15/2019 with increasing respiratory distress, tachycardia, hypoxia and was intubated on 03/15/2019. - likely due to ARDS secondary to urinary tract infection, pulmonary edema, pneumonia, rheumatoid lung disease, pulmonary fibrosis - chest x-ray and ABGs much improved. - continue bronchodilators - CT angiogram on 03/15/2019 was negative for pulmonary embolism, extensive bilateral airspace disease which may represent a combination of pneumonia and/or edema, pulmonary arterial hypertension, cholelithiasis - influenza panel was negative. Urine Legionella and strep pneumococcal antigens were negative, urine Histoplasma is pending - continue steroids for possible COPD exacerbation and ARDS - extubated - sputum with pseudomonas - on airvo as oxygenation still poor - cxr has improved (3) Acute UTI: Code(s): N39.0 - Urinary tract infection, site not specified Status: Acute Assessment and Plan: Her UA is suggestive of infection. Urine culture growing Klebsiella and Proteus which are pansensitive, continue cefepime. . (4) Type II diabetes mellitus: Qualifiers: Diabetes mellitus fdc insulin use: without long term care social worker use Diabetes mellitus complication status: with neurologic complications Diabetes mellitus complication detail: with unspecified neuropathy Qualified Code(s): E11.40 - Type 2 diabetes mellitus with diabetic neuropathy, unspecified Code(s): E11.9 - Type 2 diabetes mellitus without complications Status: Acute Assessment and Plan: continue sliding scale insulin for now with Accu-Cheks. tube feeds d/c as NG out post extubation. Started po this am (5) Rheumatoid arthritis: Qualifiers: Rheumatoid arthritis location: unspecified site Rheumatoid factor presence: unspecified presence Qualified Code(s): M06.9 - Rheumatoid arthritis, unspecified Code(s): M06.9 - Rheumatoid arthritis, unspecified Status: Acute Assessment and Plan: Patient has longstanding rheumatoid arthritis and is on immuno modulatory medications. She also received a Depo-Medrol shot for her rheumatoid arthritis recently. Hence she is immunocompromised. I am not sure how severe is her lung disease with her rheumatoid arthritis and chronic tobacco abuse. - CT angio as above - I will hold off on the rheumatoid medications for now Patient has longstanding rheumatoid arthritis and is on immuno modulatory medications. She also received a Depo-Medrol shot for her rheumatoid arthritis recently. Hence she is immunocompromised. I am not sure how severe is her lung disease with her rheumatoid arthritis and chronic tobacco abuse. 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
[2019-03-21 16:03] LABS: Glucose Point of Care 165 (65-105)
--- NOTE | 2019-03-21 18:38 | PM.IMPN ---
Progress Note: A&P Assessment and Plan (1) Acute respiratory failure: Qualifiers: Respiratory failure complication: hypoxia Qualified Code(s): J96.01 - Acute respiratory failure with hypoxia Code(s): J96.00 - Acute respiratory failure, unspecified whether with hypoxia or hypercapnia Status: Acute Assessment and Plan: Now extubated on 03/19/19. Now on high-flow oxygen. CTA chest no pulmonary embolism but extensive bilateral airspace disease. Echo with diastolic dysfunction grade 2, severe pulmonary hypertension and EF greater than 75%. Sputum culture now growing Pseudomonas. Already on IV cefepime. Discussed with vulcan crewmember. (2) Septic shock: Code(s): A41.9 - Sepsis, unspecified organism; R65.21 - Severe sepsis with septic shock Status: Acute Assessment and Plan: Blood pressure reviewed on 03/21/2019 and now stable. Urine culture positive for Klebsiella and Proteus. All blood cultures negative thus far. MRSA nasal culture negative. Sputum positive for Pseudomonas. WBC remains normal. Continue IV cefepime. (3) Pneumonia: Qualifiers: Laterality: bilateral Lung location: unspecified part of lung Pneumonia type: due to unspecified organism Qualified Code(s): J18.9 - Pneumonia, unspecified organism Code(s): J18.9 - Pneumonia, unspecified organism Status: Acute Assessment and Plan: CTA chest as noted above. Chest x-ray today with stable findings. Sputum positive for Pseudomonas. Continue IV antibiotics, steroids and neb treatments. Will monitor. (4) Acute UTI: Code(s): N39.0 - Urinary tract infection, site not specified Status: Acute Assessment and Plan: Urine culture now growing Klebsiella pneumoniae and Proteus mirabilis both sensitive to IV cefepime. Contineu the same. (5) Dysphagia: Qualifiers: Dysphagia type: unspecified Qualified Code(s): R13.10 - Dysphagia, unspecified Code(s): R13.10 - Dysphagia, unspecified Status: Acute Assessment and Plan: Had trouble swallowing pills. Bedside swallow unable to be performed on 03/20/19. Diet started by vulcan crewmember today. Will follow. (6) HTN (hypertension): Qualifiers: Hypertension type: essential hypertension Qualified Code(s): I10 - Essential (primary) hypertension Code(s): I10 - Essential (primary) hypertension Status: Acute Assessment and Plan: Blood pressure reviewed on 03/21/2019. BP well controlled. Continue Coreg and lisinopril. Will continue to monitor and adjust treatment as needed. (7) Anemia: Qualifiers: Anemia type: unspecified type Qualified Code(s): D64.9 - Anemia, unspecified Code(s): D64.9 - Anemia, unspecified Status: Acute Assessment and Plan: Acute on chronic anemia. Iron studies are normal at this point. Vitamin B12 and folate levels are okay. Hemoglobin dropped to 6.9 on 03/16/2019 requiring transfusion of 1 unit PRBC. Hemoglobin climbed to the 8 range and remains at this level. Will continue to monitor. Transfuse as needed. (8) Hypokalemia: Code(s): E87.6 - Hypokalemia Status: Acute Assessment and Plan: Potassium 3.0 today and replacement ordered. Will continue to follow and replace as needed. (9) Type II diabetes mellitus: Qualifiers: Diabetes mellitus complication detail: with unspecified neuropathy Diabetes mellitus complication status: with neurologic complications Diabetes mellitus snf insulin use: without snf use Qualified Code(s): E11.40 - Type 2 diabetes mellitus with diabetic neuropathy, unspecified Code(s): E11.9 - Type 2 diabetes mellitus without complications Status: Acute Assessment and Plan: Had problems with severe hypoglycemia 1 year ago with medications. Currently not on medication at home. Glucose reviewed on 03/21/2019.
[2019-03-21 20:07] LABS: Vancomycin Trough < 5.0 ug/mL (10.0-20.0)
[2019-03-21 21:41] LABS: Glucose Point of Care 161 (65-105)
[2019-03-22] VITALS (24 sets, daily range): BP systolic 116–139; BP diastolic 81–90; PULSE 66–94; RESP 20–29; TEMP 36.9–37.7; O2SAT 94–98
[2019-03-22] MEDS: ALBUTEROL SULFATE NEB 2.5 MG/0.5 ML INH 5 MG INHALATION ×4 (01:30→19:34)
[2019-03-22] MEDS: IPRATROPIUM BR 0.02% INH SOLN 0.5 MG/2.5 ML VIAL INHALATION ×4 (01:30→19:34)
[2019-03-22 05:30] LABS: Hematocrit 26.7 % (37.0-47.0); Hemoglobin 8.2 g/dL (12.0-15.0); Immature Platelet Fraction Pct 10.7 % (0.9-11.2); Mean Corpuscular HGB Conc 30.7 g/dl (32-36); Mean Corpuscular Hemoglobin 28.5 pg (26-34); Mean Corpuscular Volume 92.7 fl (80-100); Platelet Count Result 94 k/mm3 (150-375); Red Blood Count 2.88 M/mm3 (4.2-5.4); Red Cell Distribution Width 15.6 % (11.5-14.5); White Blood Count 6.8 K/mm3 (4.5-10.0)
[2019-03-22] MEDS: methylPREDNISolone SOD SUCC 40 MG VIAL IV PUSH ×3 (05:37→21:22)
[2019-03-22] MEDS: LEVOTHYROXINE SODIUM INJ 100 MCG/5 ML VIAL 50 MCG IV PUSH (05:37)
[2019-03-22 06:13] LABS: Blood Urea Nitrogen 20 mg/dL (7-17); Calcium 7.7 mg/dL (8.4-10.2); Carbon Dioxide 31 mmol/L (22-30); Chloride 108 mmol/L (98-107); Estimated CRCL calculation 100 ml/min; Estimated Glomerular Filt Rate > 60; Glucose 153 mg/dL (65-105); Potassium 3.6 mmol/L (3.4-5.0); Sodium 139 mmol/L (137-145)
[2019-03-22] MEDS: TOLNAFTATE 1% POWDER 45 GM BTL 1 APPLIC TOPICAL ×2 (07:16→08:16)
[2019-03-22] MEDS: busPIRone HCL 5 MG TABLET PO (08:17)
[2019-03-22] MEDS: CITALOPRAM HYDROBROMIDE 20 MG TABLET 40 MG PO (08:17)
[2019-03-22] MEDS: carvediloL 12.5 MG TABLET PO ×2 (08:18→21:21)
[2019-03-22] MEDS: busPIRone HCL 2.5 MG TABLET PO (08:18)
[2019-03-22] MEDS: FAMOTIDINE 20 MG/2 ML VIAL IV PUSH ×2 (08:19→21:21)
[2019-03-22] MEDS: LORAZEPAM INJ 2 MG/ML VIAL 0.5 MG IV PUSH (08:19)
[2019-03-22 08:27] LABS: Glucose Point of Care 164 (65-105)
[2019-03-22] MEDS: FUROSEMIDE INJ 40 MG/4 ML VIAL IV PUSH (09:27)
[2019-03-22 11:13] LABS: Glucose Point of Care 172 (65-105)
--- NOTE | 2019-03-22 11:47 | PCSTNOTE ---
Discussed new orders for bedside swallow eval with Dr. Morales. MD wishes for pt to be re-assessed before diet can be advanced to regular solids; however, per MD, pt is currently confused and sleepy. Given pt's current decreased BUSHRA, will wait to attempt eval when pt is more alert.
--- NOTE | 2019-03-22 15:28 | PM.IMPN ---
Progress Note: A&P Assessment and Plan (1) Septic shock: Code(s): A41.9 - Sepsis, unspecified organism; R65.21 - Severe sepsis with septic shock Status: Resolved Assessment and Plan: RESOLVED: - CURRENTLY OF BOTH VASOPRESSORS - likely source is urine and lungs - continue cefepime, vanc d/c as nasal MRSA negative - urine cultures positive for Klebsiella and Proteus ( landry sensitive) - blood cultures from 03/14/2019 NEGATIVE x2, patient febrile, repeat blood cultures pending - blood pressures have been stable, arterial line d/c - echocardiogram 03/15/2019 showed EF of 75%, grade 2 diastolic dysfunction, severe pulmonary hypertension with RVSP of 77 mmHg - sputum cx with pseudomonas , sensitive to cefepime (2) Acute respiratory failure: Qualifiers: Respiratory failure complication: hypoxia Qualified Code(s): J96.01 - Acute respiratory failure with hypoxia Code(s): J96.00 - Acute respiratory failure, unspecified whether with hypoxia or hypercapnia Status: Acute Assessment and Plan: patient was transferred from IMU on 03/15/2019 with increasing respiratory distress, tachycardia, hypoxia and was intubated on 03/15/2019. - likely due to ARDS secondary to urinary tract infection, pulmonary edema, pneumonia, rheumatoid lung disease, pulmonary fibrosis - chest x-ray and ABGs much improved. - continue bronchodilators - CT angiogram on 03/15/2019 was negative for pulmonary embolism, extensive bilateral airspace disease which may represent a combination of pneumonia and/or edema, pulmonary arterial hypertension, cholelithiasis - influenza panel was negative. Urine Legionella and strep pneumococcal antigens were negative, urine Histoplasma is pending - continue steroids for possible COPD exacerbation and ARDS - extubated - sputum with pseudomonas - on airvo as oxygenation still poor - cxr has improved but with some PVC , lasix given x1 today (3) Acute UTI: Code(s): N39.0 - Urinary tract infection, site not specified Status: Acute Assessment and Plan: Her UA is suggestive of infection. Urine culture growing Klebsiella and Proteus which are pansensitive, continue cefepime. . (4) Type II diabetes mellitus: Qualifiers: Diabetes mellitus intermediate insulin use: without splicer operator use Diabetes mellitus complication status: with neurologic complications Diabetes mellitus complication detail: with unspecified neuropathy Qualified Code(s): E11.40 - Type 2 diabetes mellitus with diabetic neuropathy, unspecified Code(s): E11.9 - Type 2 diabetes mellitus without complications Status: Acute Assessment and Plan: continue sliding scale insulin for now with Accu-Cheks. tube feeds d/c as NG out post extubation. Started po this am (5) Rheumatoid arthritis: Qualifiers: Rheumatoid arthritis location: unspecified site Rheumatoid factor presence: unspecified presence Qualified Code(s): M06.9 - Rheumatoid arthritis, unspecified Code(s): M06.9 - Rheumatoid arthritis, unspecified Status: Acute Assessment and Plan: Patient has longstanding rheumatoid arthritis and is on immuno modulatory medications. She also received a Depo-Medrol shot for her rheumatoid arthritis recently. Hence she is immunocompromised. I am not sure how severe is her lung disease with her rheumatoid arthritis and chronic tobacco abuse. - CT angio as above - I will hold off on the rheumatoid medications for now Patient has longstanding rheumatoid arthritis and is on immuno modulatory medications. She also received a Depo-Medrol shot for her rheumatoid arthritis recently. Hence she is immunocompromised. I am not sure how severe is her lung disease with her rheumatoid arthritis and chronic tobacco abuse. - CT angio as above - I will hold off on the rheumatoid medications for now (6) Chronic foot ulcer with necrosis of mu
[2019-03-22 16:19] LABS: Glucose Point of Care 164 (65-105)
--- NOTE | 2019-03-22 19:48 | PM.IMPN ---
Progress Note: A&P Assessment and Plan (1) Acute respiratory failure: Qualifiers: Respiratory failure complication: hypoxia Qualified Code(s): J96.01 - Acute respiratory failure with hypoxia Code(s): J96.00 - Acute respiratory failure, unspecified whether with hypoxia or hypercapnia Status: Acute Assessment and Plan: Extubated on 03/19/19. Now on high-flow oxygen. CTA chest no pulmonary embolism but extensive bilateral airspace disease. Echo with diastolic dysfunction grade 2, severe pulmonary hypertension and EF greater than 75%. Sputum culture now growing Pseudomonas. Already on IV cefepime. Continue nebs, steroids and abx. (2) Septic shock: Code(s): A41.9 - Sepsis, unspecified organism; R65.21 - Severe sepsis with septic shock Status: Acute Assessment and Plan: Blood pressure reviewed on 03/22/2019 and now stable. Urine culture positive for Klebsiella and Proteus. All blood cultures negative thus far. MRSA nasal culture negative. Sputum positive for Pseudomonas. WBC remains normal. Continue IV cefepime. (3) Pneumonia: Qualifiers: Laterality: bilateral Lung location: unspecified part of lung Pneumonia type: due to unspecified organism Qualified Code(s): J18.9 - Pneumonia, unspecified organism Code(s): J18.9 - Pneumonia, unspecified organism Status: Acute Assessment and Plan: CTA chest as noted above. Sputum positive for Pseudomonas. Continue IV antibiotics, steroids and neb treatments. Day 8 of Cefepime. Will monitor. (4) Acute UTI: Code(s): N39.0 - Urinary tract infection, site not specified Status: Acute Assessment and Plan: Urine culture growing Klebsiella pneumoniae and Proteus mirabilis both sensitive to IV cefepime. Day 8 of IV abx. Continue the same for now. (5) Dysphagia: Qualifiers: Dysphagia type: unspecified Qualified Code(s): R13.10 - Dysphagia, unspecified Code(s): R13.10 - Dysphagia, unspecified Status: Acute Assessment and Plan: Had trouble swallowing pills. Bedside swallow unable to be performed on 03/20/19. Minced/Moist level 5 diet started by fast food crew member yesterday and she seems to be tolerating. Speech therapy has been trying to re-evaluate the patient. Will follow. (6) HTN (hypertension): Qualifiers: Hypertension type: essential hypertension Qualified Code(s): I10 - Essential (primary) hypertension Code(s): I10 - Essential (primary) hypertension Status: Acute Assessment and Plan: Blood pressure reviewed on 03/22/2019. BP well controlled. Continue Coreg and lisinopril. Will continue to monitor and adjust treatment as needed. (7) Anemia: Qualifiers: Anemia type: unspecified type Qualified Code(s): D64.9 - Anemia, unspecified Code(s): D64.9 - Anemia, unspecified Status: Acute Assessment and Plan: Acute on chronic anemia. Iron studies, Vitamin B12 and folate levels are okay. Hgb dropped to 6.9 on 03/16/2019 requiring transfusion of 1 unit PRBC. Hemoglobin climbed to the 8 range and remains at this level. Will continue to monitor. Transfuse as needed. (8) Hypokalemia: Code(s): E87.6 - Hypokalemia Status: Acute Assessment and Plan: Potassium 3.6 today. Will continue to follow and replace as needed. (9) Type II diabetes mellitus: Qualifiers: Diabetes mellitus complication detail: with unspecified neuropathy Diabetes mellitus complication status: with neurologic complications Diabetes mellitus watermelon inspector insulin use: without correction use Qualified Code(s): E11.40 - Type 2 diabetes mellitus with diabetic neuropathy, unspecified Code(s): E11.9 - Type 2 diabetes mellitus without complications Status: Acute Assessment and Plan: A1c 5.1 in February. Had problems with severe hypoglycemia 1 year ago with
[2019-03-22 21:36] LABS: Glucose Point of Care 157 (65-105)
[2019-03-23] VITALS (24 sets, daily range): BP systolic 93–148; BP diastolic 67–90; PULSE 69–99; RESP 20–24; TEMP 36.9–37.2; O2SAT 93–100; BMI 10.0
[2019-03-23] MEDS: IPRATROPIUM BR 0.02% INH SOLN 0.5 MG/2.5 ML VIAL INHALATION ×4 (01:38→20:37)
[2019-03-23] MEDS: ALBUTEROL SULFATE NEB 2.5 MG/0.5 ML INH 5 MG INHALATION ×4 (01:38→20:36)
[2019-03-23] MEDS: methylPREDNISolone SOD SUCC 40 MG VIAL IV PUSH ×3 (06:50→21:19)
[2019-03-23] MEDS: LEVOTHYROXINE SODIUM INJ 100 MCG/5 ML VIAL 50 MCG IV PUSH (06:50)
[2019-03-23 07:09] LABS: Hematocrit 27.8 % (37.0-47.0); Hemoglobin 8.7 g/dL (12.0-15.0); Mean Corpuscular HGB Conc 31.3 g/dl (32-36); Mean Corpuscular Hemoglobin 28.6 pg (26-34); Mean Corpuscular Volume 91.4 fl (80-100); Mean Platelet Volume 12.5 fl (7.4-10.4); Platelet Count Result 133 k/mm3 (150-375); Red Blood Count 3.04 M/mm3 (4.2-5.4); Red Cell Distribution Width 15.6 % (11.5-14.5); White Blood Count 8.4 K/mm3 (4.5-10.0)
[2019-03-23 07:13] LABS: Albumin Level 2.6 g/dL (3.5-5.1); Blood Urea Nitrogen 23 mg/dL (7-17); Calcium 7.9 mg/dL (8.4-10.2); Carbon Dioxide 30 mmol/L (22-30); Chloride 100 mmol/L (98-107); Estimated CRCL calculation 98 ml/min; Estimated Glomerular Filt Rate > 60; Glucose 154 mg/dL (65-105); Magnesium 2.3 mg/dL (1.6-2.3); Phosphorus 2.6 mg/dL (2.5-4.5); Potassium 3.3 mmol/L (3.4-5.0); Sodium 134 mmol/L (137-145)
--- NOTE | 2019-03-23 08:39 | PCSTNOTE ---
Please refer to the Bedside Swallow Evaluation in the EMR.
[2019-03-23] MEDS: CITALOPRAM HYDROBROMIDE 20 MG TABLET 40 MG PO (08:52)
[2019-03-23] MEDS: carvediloL 12.5 MG TABLET PO ×2 (08:52→21:19)
[2019-03-23] MEDS: FAMOTIDINE 20 MG/2 ML VIAL IV PUSH (08:52)
[2019-03-23] MEDS: busPIRone HCL 2.5 MG TABLET PO (08:52)
[2019-03-23] MEDS: busPIRone HCL 5 MG TABLET PO (08:52)
[2019-03-23] MEDS: POTASSIUM CHLORIDE 20 MEQ TABLET 40 MEQ PO (08:52)
[2019-03-23] MEDS: TOLNAFTATE 1% POWDER 45 GM BTL 1 APPLIC TOPICAL ×2 (08:53→21:19)
--- NOTE | 2019-03-23 09:53 | PM.IMPN ---
Progress Note: A&P Assessment and Plan (1) Acute respiratory failure: Qualifiers: Respiratory failure complication: hypoxia Qualified Code(s): J96.01 - Acute respiratory failure with hypoxia Code(s): J96.00 - Acute respiratory failure, unspecified whether with hypoxia or hypercapnia Status: Acute Assessment and Plan: Extubated on 03/19/19. Now on high-flow oxygen. CTA chest no pulmonary embolism but extensive bilateral airspace disease with positive sputum for Pseudomonas. Echo with diastolic dysfunction grade 2, severe pulmonary hypertension and EF greater than 75%. Lasix IV once given with good uop 1600. Already on IV cefepime. Continue nebs, steroids and abx. Add CPT. Repeat Lasix. Wean O2. (2) Septic shock: Code(s): A41.9 - Sepsis, unspecified organism; R65.21 - Severe sepsis with septic shock Status: Acute Assessment and Plan: Blood pressure reviewed on 03/23/2019 and now stable. Urine culture positive for Klebsiella and Proteus. All blood cultures negative thus far. MRSA nasal culture negative. Sputum positive for Pseudomonas. WBC remains normal. Continue IV cefepime. (3) Pneumonia: Qualifiers: Pneumonia type: due to unspecified organism Laterality: bilateral Lung location: unspecified part of lung Qualified Code(s): J18.9 - Pneumonia, unspecified organism Code(s): J18.9 - Pneumonia, unspecified organism Status: Acute Assessment and Plan: CTA chest as noted above. Sputum positive for Pseudomonas. Continue IV antibiotics, steroids and neb treatments. Day 9 of Cefepime. Wean O2 as tolerated. Will monitor. (4) Acute UTI: Code(s): N39.0 - Urinary tract infection, site not specified Status: Acute Assessment and Plan: Urine culture growing Klebsiella pneumoniae and Proteus mirabilis both sensitive to IV cefepime. Day 9 of IV cefepime. Continue the same for now. (5) Dysphagia: Qualifiers: Dysphagia type: unspecified Qualified Code(s): R13.10 - Dysphagia, unspecified Code(s): R13.10 - Dysphagia, unspecified Status: Acute Assessment and Plan: Had trouble swallowing pills. Bedside swallow unable to be performed on 03/20/19. Minced/Moist level 5 diet started by public address system mechanic on 03/21/19 and she seems to be tolerating. Speech therapy re-evaluated the patient today and felt she could have her diet advanced. Diet now Level 7 easy to chew. Will follow. (6) HTN (hypertension): Qualifiers: Hypertension type: essential hypertension Qualified Code(s): I10 - Essential (primary) hypertension Code(s): I10 - Essential (primary) hypertension Status: Acute Assessment and Plan: Blood pressure reviewed on 03/23/2019. BP well controlled. Continue Coreg and lisinopril. Will continue to monitor and adjust treatment as needed. (7) Anemia: Qualifiers: Anemia type: unspecified type Qualified Code(s): D64.9 - Anemia, unspecified Code(s): D64.9 - Anemia, unspecified Status: Acute Assessment and Plan: Acute on chronic anemia. Iron studies, Vitamin B12 and folate levels are okay. Hgb dropped to 6.9 on 03/16/2019 requiring transfusion of 1 unit PRBC. Hemoglobin climbed to the 8 range and remains at this level. Will continue to monitor. Transfuse as needed. (8) Hypokalemia: Code(s): E87.6 - Hypokalemia Status: Acute Assessment and Plan: Potassium 3.3 today. Replacement ordered. Will continue to follow and replace as needed. (9) Type II diabetes mellitus: Qualifiers: Diabetes mellitus fpc insulin use: without truck terminal manager use Diabetes mellitus complication status: with neurologic complications Diabetes mellitus complication detail: with unspecified neuropathy Qualified Code(s): E11.40 - Type 2 diabetes mellitus with diabetic neuropathy, unspecified Code(s): E1
[2019-03-23] MEDS: FUROSEMIDE INJ 40 MG/4 ML VIAL IV PUSH (10:28)
[2019-03-23 12:47] LABS: Glucose Point of Care 189 (65-105)
[2019-03-23 16:09] LABS: Glucose Point of Care 190 (65-105)
[2019-03-23] MEDS: FAMOTIDINE 20 MG TABLET PO (21:19)
[2019-03-23 21:27] LABS: Glucose Point of Care 151 (65-105)
[2019-03-24] VITALS (24 sets, daily range): BP systolic 107–130; BP diastolic 72–80; PULSE 76–104; RESP 16–26; TEMP 36.1–37.2; O2SAT 93–98
[2019-03-24] MEDS: MAGNES & ALUM HYD/SIMETH/DIPHENHYD/LIDOCAINE 119 ML MOUTHWASH BY MOUTH ×3 (00:14→11:09)
[2019-03-24] MEDS: IPRATROPIUM BR 0.02% INH SOLN 0.5 MG/2.5 ML VIAL INHALATION ×4 (03:07→20:19)
[2019-03-24] MEDS: ALBUTEROL SULFATE NEB 2.5 MG/0.5 ML INH 5 MG INHALATION ×4 (03:07→20:19)
[2019-03-24] MEDS: LEVOTHYROXINE SODIUM 100 MCG TABLET PO (06:16)
[2019-03-24] MEDS: methylPREDNISolone SOD SUCC 40 MG VIAL IV PUSH ×3 (06:16→22:47)
[2019-03-24 06:41] LABS: Hematocrit 28.2 % (37.0-47.0); Hemoglobin 8.9 g/dL (12.0-15.0); Mean Corpuscular HGB Conc 31.6 g/dl (32-36); Mean Corpuscular Hemoglobin 28.8 pg (26-34); Mean Corpuscular Volume 91.3 fl (80-100); Mean Platelet Volume 12.5 fl (7.4-10.4); Platelet Count Result 173 k/mm3 (150-375); Red Blood Count 3.09 M/mm3 (4.2-5.4); Red Cell Distribution Width 15.5 % (11.5-14.5); White Blood Count 9.2 K/mm3 (4.5-10.0)
[2019-03-24 06:51] LABS: Blood Urea Nitrogen 27 mg/dL (7-17); Calcium 7.8 mg/dL (8.4-10.2); Carbon Dioxide 29 mmol/L (22-30); Chloride 101 mmol/L (98-107); Estimated CRCL calculation 97 ml/min; Estimated Glomerular Filt Rate > 60; Glucose 140 mg/dL (65-105); Potassium 3.4 mmol/L (3.4-5.0); Sodium 134 mmol/L (137-145)
[2019-03-24 07:32] LABS: Glucose Point of Care 162 (65-105)
[2019-03-24] MEDS: CITALOPRAM HYDROBROMIDE 20 MG TABLET 40 MG PO (08:03)
[2019-03-24] MEDS: busPIRone HCL 2.5 MG TABLET PO (08:03)
[2019-03-24] MEDS: FAMOTIDINE 20 MG TABLET PO ×2 (08:03→22:46)
[2019-03-24] MEDS: carvediloL 12.5 MG TABLET PO ×2 (08:03→22:45)
[2019-03-24] MEDS: POTASSIUM CHLORIDE 20 MEQ TABLET 40 MEQ PO (08:03)
[2019-03-24] MEDS: TOLNAFTATE 1% POWDER 45 GM BTL 1 APPLIC TOPICAL ×2 (08:03→22:46)
[2019-03-24] MEDS: busPIRone HCL 5 MG TABLET PO (08:03)
[2019-03-24 11:14] LABS: Glucose Point of Care 157 (65-105)
--- NOTE | 2019-03-24 11:39 | PCDIET ---
Nutrition Follow-Up Complete: Nutrition Diagnosis: Unintended weight loss related to nausea and decreased appetite as evidenced by reported weight loss of 7-8 pounds and refusal of AM meal on 03/14. Nutrition Goals: Patient will consume >50% of all meals and drink Glucerna. Goals not met. Patient ate 100% of one meal yesterday and refused other two. Did take bites of outside food brought in, per . Requesting cereal soaked in milk which was approved by [employer]. Taking some Glucerna but does not care for it and would prefer to try alternate supplement. Recommend continuing present diet with [employer]rive [employer] Cream (270kcal, 9g protein) BID. Last recorded weight is 71.8 kg which is decreased. Bowel Motility: +Small stool reported today. Labs Reviewed: Glu (162), BUN (27), Cr (0.5), Na (134) Meds Noted: Albuterol, Cefepime, Novolog, Pepcid, Folic Acid, Solu-Medrol, KCl Additional Notes: No change in skin reported. Patient still with right toe and finger ulcer. Nutrition Monitoring and Evaluation: Follow up in 3 days. New goal: intakes >50%, Thrive Ice Cream acceptance.
[2019-03-24 12:02] LABS: Glucose Point of Care 154 (65-105)
--- NOTE | 2019-03-24 15:20 | PM.IMPN ---
Progress Note: A&P Assessment and Plan (1) Acute respiratory failure: Qualifiers: Respiratory failure complication: hypoxia Qualified Code(s): J96.01 - Acute respiratory failure with hypoxia Code(s): J96.00 - Acute respiratory failure, unspecified whether with hypoxia or hypercapnia Status: Acute Assessment and Plan: Extubated on 03/19/19. Now on high-flow oxygen. CTA chest no pulmonary embolism but extensive bilateral airspace disease with positive sputum for Pseudomonas. Echo with diastolic dysfunction grade 2, severe pulmonary hypertension and EF greater than 75%. Lasix IV once on 03/22 and again on 03/23 with good UOP. Already on IV cefepime. Continue nebs, steroids and abx. Aggressively wean O2 as tolerated. (2) Septic shock: Code(s): A41.9 - Sepsis, unspecified organism; R65.21 - Severe sepsis with septic shock Status: Acute Assessment and Plan: Blood pressure reviewed and are remaining stable. Urine culture positive for Klebsiella and Proteus. All blood cultures negative thus far. MRSA nasal culture negative. Sputum positive for Pseudomonas. WBC remains normal. Continue IV cefepime. (3) Pneumonia: Qualifiers: Pneumonia type: due to unspecified organism Laterality: bilateral Lung location: unspecified part of lung Qualified Code(s): J18.9 - Pneumonia, unspecified organism Code(s): J18.9 - Pneumonia, unspecified organism Status: Acute Assessment and Plan: CTA chest as noted above. Sputum positive for Pseudomonas. Continue IV antibiotics, steroids and neb treatments. Day 10 of Cefepime. Asked RN to more aggressively O2 as tolerated. Will monitor. (4) Acute UTI: Code(s): N39.0 - Urinary tract infection, site not specified Status: Acute Assessment and Plan: Urine culture growing Klebsiella pneumoniae and Proteus mirabilis both sensitive to IV cefepime. Day 10 of IV cefepime. Continue the same for now. (5) Dysphagia: Qualifiers: Dysphagia type: unspecified Qualified Code(s): R13.10 - Dysphagia, unspecified Code(s): R13.10 - Dysphagia, unspecified Status: Acute Assessment and Plan: Had trouble swallowing pills. Bedside swallow unable to be performed on 03/20/19. Minced/Moist level 5 diet started by batch roller operator on 03/21/19 and she seemed to tolerate this diet. Speech therapy re-evaluated the patient 03/23/19 and felt she could have her diet advanced. Diet now Level 7 easy to chew. Will follow. (6) Candidiasis of mouth: Code(s): B37.0 - Candidal stomatitis Status: Acute Assessment and Plan: Received IV fluconazole before intubation. Nothing on exam but patient now with odynophagia and poor oral intake. Will start Nystatin. (7) HTN (hypertension): Qualifiers: Hypertension type: essential hypertension Qualified Code(s): I10 - Essential (primary) hypertension Code(s): I10 - Essential (primary) hypertension Status: Acute Assessment and Plan: Blood pressure reviewed on 03/24/2019. BP well controlled. Continue Coreg and lisinopril. Will continue to monitor and adjust treatment as needed. Watch for HoTN. (8) Anemia: Qualifiers: Anemia type: unspecified type Qualified Code(s): D64.9 - Anemia, unspecified Code(s): D64.9 - Anemia, unspecified Status: Acute Assessment and Plan: Acute on chronic anemia. Iron studies, Vitamin B12 and folate levels are okay. Hgb dropped to 6.9 on 03/16/2019 requiring transfusion of 1 unit PRBC. Hemoglobin climbed to the 8 range and remains at this level. Will continue to monitor. Transfuse as needed. (9) Hypokalemia: Code(s): E87.6 - Hypokalemia Status: Acute Assessment and Plan: Potassium 3.4 today. Replacement ordered again. Will continue to follow and replace as needed. (10) Type II diabetes mellitus: Qual
[2019-03-24] MEDS: FLUCONAZOLE 150 MG TABLET PO (16:55)
[2019-03-24] MEDS: NYSTATIN 100,000 UNITS/ML SUSP 5 ML ORAL.SUSP PO ×2 (16:55→22:46)
[2019-03-24 17:39] LABS: Glucose Point of Care 143 (65-105)
[2019-03-25] VITALS (26 sets, daily range): BP systolic 111–126; BP diastolic 73–83; PULSE 74–98; RESP 16–27; TEMP 36.6–37.9; O2SAT 94–100
[2019-03-25] MEDS: IPRATROPIUM BR 0.02% INH SOLN 0.5 MG/2.5 ML VIAL INHALATION ×4 (01:19→20:19)
[2019-03-25] MEDS: ALBUTEROL SULFATE NEB 2.5 MG/0.5 ML INH 5 MG INHALATION ×4 (01:19→20:19)
[2019-03-25 05:33] LABS: Basophils Percent Auto 0.1 % (0.2-1.2); Hematocrit 27.3 % (37.0-47.0); Hemoglobin 8.3 g/dL (12.0-15.0); Immature Granulocyte Absolute 0.09 K/mm3 (0.00-0.031); Immature Granulocyte Percent A 1.2 % (0-0.5); Lymphocytes Absolute Auto 0.28 K/mm3 (0.9-3.2); Lymphocytes Percent Auto 3.7 % (18.3-44.2); Mean Corpuscular HGB Conc 30.4 g/dl (32-36); Mean Corpuscular Volume 92.2 fl (80-100); Mean Platelet Volume 12.4 fl (7.4-10.4); Monocytes Absolute Auto 0.2 K/mm3 (0.1-0.6); Monocytes Percent Auto 3.2 % (2.6-8.5); Neutrophils Percent Auto 91.8 % (45.5-73.1); Platelet Count Result 189 k/mm3 (150-375); Red Blood Count 2.96 M/mm3 (4.2-5.4); Red Cell Distribution Width 15.6 % (11.5-14.5); White Blood Count 7.6 K/mm3 (4.5-10.0)
[2019-03-25] MEDS: LEVOTHYROXINE SODIUM 100 MCG TABLET PO (05:53)
[2019-03-25] MEDS: methylPREDNISolone SOD SUCC 40 MG VIAL IV PUSH ×3 (05:53→20:27)
[2019-03-25 06:03] LABS: Alanine Aminotransferase 23 U/L (4-35); Albumin Level 2.6 g/dL (3.5-5.1); Alkaline Phosphatase 85 U/L (38-126); Aspartate Amino Transferase 18 U/L (14-36); Bilirubin,Total 0.6 mg/dL (0.2-1.3); Blood Urea Nitrogen 25 mg/dL (7-17); Calcium 7.9 mg/dL (8.4-10.2); Carbon Dioxide 26 mmol/L (22-30); Chloride 102 mmol/L (98-107); Estimated CRCL calculation 118 ml/min; Estimated Glomerular Filt Rate > 60; Glucose 136 mg/dL (65-105); Magnesium 2.3 mg/dL (1.6-2.3); Phosphorus 2.9 mg/dL (2.5-4.5); Potassium 3.7 mmol/L (3.4-5.0); Sodium 134 mmol/L (137-145)
[2019-03-25 08:29] LABS: Glucose Point of Care 174 (65-105)
[2019-03-25] MEDS: TOLNAFTATE 1% POWDER 45 GM BTL 1 APPLIC TOPICAL ×2 (09:28→20:26)
[2019-03-25] MEDS: CITALOPRAM HYDROBROMIDE 20 MG TABLET 40 MG PO (09:29)
[2019-03-25] MEDS: busPIRone HCL 2.5 MG TABLET PO (09:29)
[2019-03-25] MEDS: NYSTATIN 100,000 UNITS/ML SUSP 5 ML ORAL.SUSP PO ×3 (09:29→20:26)
[2019-03-25] MEDS: carvediloL 12.5 MG TABLET PO ×2 (09:29→20:26)
[2019-03-25] MEDS: busPIRone HCL 5 MG TABLET PO (09:29)
[2019-03-25] MEDS: FAMOTIDINE 20 MG TABLET PO ×2 (09:29→20:26)
[2019-03-25] MEDS: MAGNES & ALUM HYD/SIMETH/DIPHENHYD/LIDOCAINE 119 ML MOUTHWASH BY MOUTH (09:30)
--- NOTE | 2019-03-25 11:34 | PM.IMPN ---
Progress Note: A&P Assessment and Plan (1) Acute respiratory failure: Qualifiers: Respiratory failure complication: hypoxia Qualified Code(s): J96.01 - Acute respiratory failure with hypoxia Code(s): J96.00 - Acute respiratory failure, unspecified whether with hypoxia or hypercapnia Status: Acute Assessment and Plan: Extubated on 03/19/19. Now on high-flow oxygen. CTA chest no pulmonary embolism but extensive bilateral airspace disease with positive sputum for Pseudomonas. Echo with diastolic dysfunction grade 2, severe pulmonary hypertension and EF greater than 75%. Lasix IV once on 03/22 and again on 03/23 with good UOP. Already on IV cefepime. Continue nebs, steroids and abx. Appears to be have difficulty weaning O2. (2) Septic shock: Code(s): A41.9 - Sepsis, unspecified organism; R65.21 - Severe sepsis with septic shock Status: Acute Assessment and Plan: Blood pressure reviewed and are remaining stable. Urine culture positive for Klebsiella and Proteus. All blood cultures negative thus far. MRSA nasal culture negative. Sputum positive for Pseudomonas. WBC remains normal. Continue IV cefepime. (3) Pneumonia: Qualifiers: Laterality: bilateral Lung location: unspecified part of lung Pneumonia type: due to unspecified organism Qualified Code(s): J18.9 - Pneumonia, unspecified organism Code(s): J18.9 - Pneumonia, unspecified organism Status: Acute Assessment and Plan: CTA chest as noted above. Sputum positive for Pseudomonas. Continue IV antibiotics, steroids and neb treatments. Day 11 of Cefepime. Will de-escalate abx if able to wean o2. Plan to complete a 14 day course (4) Acute UTI: Code(s): N39.0 - Urinary tract infection, site not specified Status: Acute Assessment and Plan: Urine culture growing Klebsiella pneumoniae and Proteus mirabilis both sensitive to IV cefepime. Day 11 of IV cefepime. Continue the same for now. (5) Dysphagia: Qualifiers: Dysphagia type: unspecified Qualified Code(s): R13.10 - Dysphagia, unspecified Code(s): R13.10 - Dysphagia, unspecified Status: Acute Assessment and Plan: Had trouble swallowing pills. Bedside swallow unable to be performed on 03/20/19. Minced/Moist level 5 diet started by social media intern on 03/21/19 and she seemed to tolerate this diet. Speech therapy re-evaluated the patient 03/23/19 and felt she could have her diet advanced. Diet now Level 7 easy to chew. Will follow. (6) Candidiasis of mouth: Code(s): B37.0 - Candidal stomatitis Status: Acute Assessment and Plan: Received IV fluconazole before intubation. Nothing on exam but patient now with odynophagia and poor oral intake. Nystatin started and symptoms better. Will see if this improves her oral intake. (7) HTN (hypertension): Qualifiers: Hypertension type: essential hypertension Qualified Code(s): I10 - Essential (primary) hypertension Code(s): I10 - Essential (primary) hypertension Status: Acute Assessment and Plan: Blood pressure reviewed on 03/25/2019. BP well controlled. Continue Coreg and lisinopril. Will continue to monitor and adjust treatment as needed. Watch for HoTN. (8) Anemia: Qualifiers: Anemia type: unspecified type Qualified Code(s): D64.9 - Anemia, unspecified Code(s): D64.9 - Anemia, unspecified Status: Acute Assessment and Plan: Acute on chronic anemia. Iron studies, Vitamin B12 and folate levels are okay. Hgb dropped to 6.9 on 03/16/2019 requiring transfusion of 1 unit PRBC. Hemoglobin climbed to the 8 range and remains at this level. Will continue to monitor. Transfuse as needed. (9) Hypokalemia: Code(s): E87.6 - Hypokalemia Status: Acute Assessment and Plan: Potassium 3.7. Will continue to follow and replace as needed.
[2019-03-25] MEDS: ACETAMINOPHEN 325 MG TABLET 650 MG PO (11:48)
[2019-03-25 12:59] LABS: Glucose Point of Care 173 (65-105)
[2019-03-25] MEDS: LORAZEPAM INJ 2 MG/ML VIAL 0.5 MG IV PUSH (14:45)
[2019-03-25 18:48] LABS: Glucose Point of Care 165 (65-105)
--- NOTE | 2019-03-25 19:36 | PC.NURSE ---
Patient @1330 was heard yelling in the degroot from the room by staff. This nurse walked in to assess the situation and the patient was yelling at a visitor in the room. After calming the patient down and explaining that she was transferred to our floor today and will not likely go home today, the patient became very upset and was cussing and throwing items in the room. The charge nurse was notified about the situation and PRN medication was administered. Patient upon reassessment, the patient was calm and was no longer yelling or throwing objects.
[2019-03-25 21:19] LABS: Glucose Point of Care 261 (65-105)
[2019-03-26] VITALS (20 sets, daily range): BP systolic 102–125; BP diastolic 60–80; PULSE 68–90; RESP 18–20; TEMP 36.1–36.9; O2SAT 82–100
[2019-03-26] MEDS: IPRATROPIUM BR 0.02% INH SOLN 0.5 MG/2.5 ML VIAL INHALATION ×4 (01:57→19:21)
[2019-03-26] MEDS: ALBUTEROL SULFATE NEB 2.5 MG/0.5 ML INH 5 MG INHALATION ×4 (01:57→19:21)
[2019-03-26] MEDS: LEVOTHYROXINE SODIUM 100 MCG TABLET PO (06:00)
[2019-03-26] MEDS: methylPREDNISolone SOD SUCC 40 MG VIAL IV PUSH (06:00)
[2019-03-26] MEDS: ACETAMINOPHEN 325 MG TABLET 650 MG PO ×2 (06:22→20:13)
[2019-03-26 06:32] LABS: Hematocrit 27.1 % (37.0-47.0); Hemoglobin 8.6 g/dL (12.0-15.0); Mean Corpuscular HGB Conc 31.7 g/dl (32-36); Mean Corpuscular Hemoglobin 28.8 pg (26-34); Mean Corpuscular Volume 90.6 fl (80-100); Mean Platelet Volume 11.8 fl (7.4-10.4); Platelet Count Result 219 k/mm3 (150-375); Red Blood Count 2.99 M/mm3 (4.2-5.4); Red Cell Distribution Width 15.9 % (11.5-14.5); White Blood Count 6.7 K/mm3 (4.5-10.0)
[2019-03-26 06:44] LABS: Blood Urea Nitrogen 25 mg/dL (7-17); Calcium 7.9 mg/dL (8.4-10.2); Carbon Dioxide 21 mmol/L (22-30); Chloride 103 mmol/L (98-107); Estimated CRCL calculation 120 ml/min; Estimated Glomerular Filt Rate > 60; Glucose 142 mg/dL (65-105); Potassium 3.6 mmol/L (3.4-5.0); Sodium 134 mmol/L (137-145)
[2019-03-26] MEDS: carvediloL 12.5 MG TABLET PO ×2 (08:56→20:14)
[2019-03-26] MEDS: CITALOPRAM HYDROBROMIDE 20 MG TABLET 40 MG PO (08:57)
[2019-03-26] MEDS: FAMOTIDINE 20 MG TABLET PO ×2 (08:57→20:14)
[2019-03-26] MEDS: NYSTATIN 100,000 UNITS/ML SUSP 5 ML ORAL.SUSP PO ×4 (08:58→20:14)
[2019-03-26] MEDS: busPIRone HCL 5 MG TABLET PO (08:58)
[2019-03-26] MEDS: busPIRone HCL 2.5 MG TABLET PO (08:58)
[2019-03-26] MEDS: MAGNES & ALUM HYD/SIMETH/DIPHENHYD/LIDOCAINE 119 ML MOUTHWASH BY MOUTH ×2 (09:02→13:34)
[2019-03-26 09:12] LABS: Glucose Point of Care 180 (65-105)
--- NOTE | 2019-03-26 10:23 | PM.IMPN ---
Progress Note: A&P Assessment and Plan (1) Acute respiratory failure: Qualifiers: Respiratory failure complication: hypoxia Qualified Code(s): J96.01 - Acute respiratory failure with hypoxia Code(s): J96.00 - Acute respiratory failure, unspecified whether with hypoxia or hypercapnia Status: Acute Assessment and Plan: Extubated on 03/19/19 to high-flow oxygen. CTA chest no pulmonary embolism but extensive bilateral airspace disease with positive sputum for Pseudomonas. Echo with diastolic dysfunction grade 2, severe pulmonary hypertension and EF greater than 75%. Lasix IV once on 03/22 and again on 03/23 with good UOP. Treated with IV cefepime. De-escalate treatment. Continue nebs, steroids and abx. Continuet ot aggressively wean O2. (2) Septic shock: Code(s): A41.9 - Sepsis, unspecified organism; R65.21 - Severe sepsis with septic shock Status: Acute Assessment and Plan: Blood pressure reviewed and are remaining stable. Urine culture positive for Klebsiella and Proteus. All blood cultures negative thus far. MRSA nasal culture negative. Sputum positive for Pseudomonas. WBC remains normal. Continue abx.. (3) Confusion: Code(s): R41.0 - Disorientation, unspecified Status: Acute Assessment and Plan: Patient more confused today. Also agitated and belligerent. We have her on her home buspirone and Celexa. Could be ICU psychosis. Could be related to steroids. Will check brain CT. Continue physical and occupational therapy. Wean steroids. (4) Pneumonia: Qualifiers: Laterality: bilateral Lung location: unspecified part of lung Pneumonia type: due to unspecified organism Qualified Code(s): J18.9 - Pneumonia, unspecified organism Code(s): J18.9 - Pneumonia, unspecified organism Status: Acute Assessment and Plan: CTA chest as noted above. Sputum positive for Pseudomonas. Continue IV antibiotics, steroids and neb treatments. Day 12 of Cefepime. Will de-escalate abx since able to wean to O2 to nasal cannula. Plan to complete a 14 day course of abx. (5) Acute UTI: Code(s): N39.0 - Urinary tract infection, site not specified Status: Acute Assessment and Plan: Urine culture growing Klebsiella pneumoniae and Proteus mirabilis both sensitive to IV cefepime. Gil has completed a course of cefepime. Remove Iglesias. (6) Dysphagia: Qualifiers: Dysphagia type: unspecified Qualified Code(s): R13.10 - Dysphagia, unspecified Code(s): R13.10 - Dysphagia, unspecified Status: Acute Assessment and Plan: Had trouble swallowing pills. Bedside swallow unable to be performed on 03/20/19. Minced/Moist level 5 diet started by digital advisor on 03/21/19 and she seemed to tolerate this diet. Speech therapy re-evaluated the patient 03/23/19 and felt she could have her diet advanced. Diet now Level 7 easy to chew but not eating. Now with this confusion. [place] check CT brain. Will follow. (7) Candidiasis of mouth: Code(s): B37.0 - Candidal stomatitis Status: Acute Assessment and Plan: Received IV fluconazole before intubation. Nothing on exam but patient now with odynophagia and poor oral intake. Nystatin started and symptoms better. Oral intake still poor. (8) HTN (hypertension): Qualifiers: Hypertension type: essential hypertension Qualified Code(s): I10 - Essential (primary) hypertension Code(s): I10 - Essential (primary) hypertension Status: Acute Assessment and Plan: Blood pressure reviewed on 03/26/2019. BP well controlled. Continue Coreg and lisinopril. Will continue to monitor and adjust treatment as needed. Watch for HoTN. (9) Anemia: Qualifiers: Anemia type: unspecified type Qualified Code(s): D64.9 - Anemia, unspecified Code(s): D64.9 - Anemia, unspecified Status: Acute As
--- NOTE | 2019-03-26 10:55 | ECG_ITS ---
Measurements Intervals [place] Rate: 74 P: 42 NE: 124 QRS: 4 QRSD: 78 T: 30 QT: 406 QTc: 453 Interpretive Statements SINUS RHYTHM RSR' IN V1 OR V2, PROBABLY NORMAL VARIANT BASELINE ARTIFACT- III BORDERLINE ECG Electronically Signed On 03-26-2019 16:43:58 INDUSTRIAL CONTROLLER by Francisco Danielson D.O.
[2019-03-26] MEDS: TOLNAFTATE 1% POWDER 45 GM BTL 1 APPLIC TOPICAL ×2 (13:33→20:14)
[2019-03-26] MEDS: predniSONE 20 MG TABLET 40 MG PO (13:33)
[2019-03-26 13:48] LABS: Glucose Point of Care 155 (65-105)
[2019-03-26 18:40] LABS: Glucose Point of Care 147 (65-105)
[2019-03-26] MEDS: MELATONIN 3 MG TABLET PO (20:14)
[2019-03-26 20:55] LABS: Glucose Point of Care 165 (65-105)
[2019-03-26] MEDS: LORAZEPAM INJ 2 MG/ML VIAL 0.5 MG IV PUSH (22:12)
[2019-03-26 23:59] LABS: Alveolar/Arterial O2 Gradient 115.5 mmHg; Base Excess ABG -2.9 mEq/l (+/-2.0); Fractional Inspired Oxygen 32 %; HCO3 ABG 20.1 mEq/l (22.0-26.0); Oxygen Content ABG 11.8 %vol (16.0-22.0); Oxygen Saturation ABG 96.6 % (95.0-100.0); Oxyhemoglobin 93.7 % THb (90.0-100.0); PCO2 ABG 28.2 mmHg (35.0-45.0); PO2 ABG 79.7 mmHg (80.0-100.0); PO2 FiO2 Ratio Arterial Blood 2.49 %; Total Hemoglobin 8.9 g/dL (12.0-18.0)
[2019-03-27] VITALS (10 sets, daily range): BP systolic 106–127; BP diastolic 62–74; PULSE 66–88; RESP 14–20; TEMP 36.7; O2SAT 95–99
[2019-03-27 00:01] LABS: Device NASAL CANNULA; Modified Allen's Test Pass; Site Drawn RIGHT BRACHIAL
[2019-03-27] MEDS: IPRATROPIUM BR 0.02% INH SOLN 0.5 MG/2.5 ML VIAL INHALATION ×3 (02:02→15:13)
[2019-03-27] MEDS: ALBUTEROL SULFATE NEB 2.5 MG/0.5 ML INH 5 MG INHALATION ×3 (02:02→15:13)
[2019-03-27] MEDS: LEVOTHYROXINE SODIUM 100 MCG TABLET PO (05:35)
[2019-03-27 06:58] LABS: Estimated CRCL calculation 150 ml/min; Estimated Glomerular Filt Rate > 60
[2019-03-27] MEDS: predniSONE 20 MG TABLET 40 MG PO (08:38)
[2019-03-27] MEDS: busPIRone HCL 2.5 MG TABLET PO (08:39)
[2019-03-27] MEDS: busPIRone HCL 5 MG TABLET PO (08:39)
[2019-03-27] MEDS: carvediloL 12.5 MG TABLET PO (08:39)
[2019-03-27] MEDS: CITALOPRAM HYDROBROMIDE 20 MG TABLET 40 MG PO (08:39)
[2019-03-27] MEDS: FAMOTIDINE 20 MG TABLET PO (08:40)
[2019-03-27] MEDS: NYSTATIN 100,000 UNITS/ML SUSP 5 ML ORAL.SUSP PO ×2 (08:40→16:20)
[2019-03-27] MEDS: MAGNES & ALUM HYD/SIMETH/DIPHENHYD/LIDOCAINE 119 ML MOUTHWASH BY MOUTH (08:41)
[2019-03-27 09:25] LABS: Glucose Point of Care 127 (65-105)
[2019-03-27 12:47] LABS: Glucose Point of Care 141 (65-105)
--- NOTE | 2019-03-27 14:21 | PCNFU ---
Nutrition Follow-Up Complete: Unintended weight loss related to nausea and decreased appetite as evidenced by reported weight loss of 7-8 pounds and refusal of AM meal on 03/14. Patient will consume >50% of all meals and drink Glucerna. Goal:Limited progression towards goal. Pt current nutrition is DBCC/Easy to Chew, Level 7. Nutrition recommendation:Agree Last recorded weight is 71 kg down from 72.4 kg 03/26/19 Bowel Motility:+BM last reported on 03/26 Labs Reviewed:Cr 0.3 Meds Noted:Synthroid, Pepcid Additional Notes: Diet order upgraded per speech therapy recommendations. Patient continues to have little po intake. Refused Bkfast today, Family did bring in food last night. Overall intakes 0-5% of meals. Patient continues to receive the [employer] BID providing an additional 270 kcals and 9 gms protein. PO intake is encouraged. Monitoring: Will monitor intake, weight, and labs (james. Glu, Cl, Na, K, Ca, BUN) every 3 days.
[2019-03-27] MEDS: TOLNAFTATE 1% POWDER 45 GM BTL 1 APPLIC TOPICAL (16:21)
--- NOTE | 2019-03-27 17:16 | PM.IMPN ---
Progress Note: A&P Assessment and Plan (1) Acute respiratory failure: Qualifiers: Respiratory failure complication: hypoxia Qualified Code(s): J96.01 - Acute respiratory failure with hypoxia Code(s): J96.00 - Acute respiratory failure, unspecified whether with hypoxia or hypercapnia Status: Acute Assessment and Plan: Extubated on 03/19/19 to high-flow oxygen. CTA chest no pulmonary embolism but extensive bilateral airspace disease with positive sputum for Pseudomonas. Echo with diastolic dysfunction grade 2, severe pulmonary hypertension and EF greater than 75%. Lasix IV once on 03/22 and again on 03/23 with good UOP. Her weight is much lower than on admission. Treated with IV cefepime but transtioned to Levaquin. (2) Septic shock: Code(s): A41.9 - Sepsis, unspecified organism; R65.21 - Severe sepsis with septic shock Status: Acute Assessment and Plan: Blood pressure reviewed and are remaining stable. Urine culture positive for Klebsiella and Proteus. All blood cultures negative thus far. MRSA nasal culture negative. Sputum positive for Pseudomonas. WBC remains normal. (3) Confusion: Code(s): R41.0 - Disorientation, unspecified Status: Acute Assessment and Plan: Patient intermittently confused. Also agitated and belligerent. We have her on her home buspirone and Celexa. Could be ICU psychosis. Could be related to steroids. Brain CT showing no acute findings. Improving with conservative treatment. Continue physical and occupational therapy. (4) Pneumonia: Qualifiers: Laterality: bilateral Lung location: unspecified part of lung Pneumonia type: due to unspecified organism Qualified Code(s): J18.9 - Pneumonia, unspecified organism Code(s): J18.9 - Pneumonia, unspecified organism Status: Acute Assessment and Plan: CTA chest as noted above. Sputum positive for Pseudomonas. Continue IV antibiotics, steroids and neb treatments. (5) Acute UTI: Code(s): N39.0 - Urinary tract infection, site not specified Status: Acute Assessment and Plan: Urine culture growing Klebsiella pneumoniae and Proteus mirabilis both sensitive to IV cefepime. Patient has completed a course of cefepime. (6) Dysphagia: Qualifiers: Dysphagia type: unspecified Qualified Code(s): R13.10 - Dysphagia, unspecified Code(s): R13.10 - Dysphagia, unspecified Status: Acute Assessment and Plan: Had trouble swallowing pills. Bedside swallow unable to be performed on 03/20/19. Minced/Moist level 5 diet started by calculus professor on 03/21/19 and she seemed to tolerate this diet. Speech therapy re-evaluated the patient 03/23/19 and felt she could have her diet advanced. Diet now Level 7 easy to chew. Patient not eating much. Complains of mouth pain (see below). Encourage oral intake. (7) Candidiasis of mouth: Code(s): B37.0 - Candidal stomatitis Status: Acute Assessment and Plan: Received IV fluconazole before intubation. No thrush but patient complaining of odynophagia and poor oral intake so Nystatin started. Symptoms improved but now complains of mouth sores. Will change to Shweta Solution and add Acyclovir. (8) HTN (hypertension): Qualifiers: Hypertension type: essential hypertension Qualified Code(s): I10 - Essential (primary) hypertension Code(s): I10 - Essential (primary) hypertension Status: Acute Assessment and Plan: Blood pressure reviewed on 03/27/2019. BP well controlled. Continue Coreg and lisinopril. Will continue to monitor and adjust treatment as needed. Watch for HoTN. (9) Anemia: Qualifiers: Anemia type: unspecified type Qualified Code(s): D64.9 - Anemia, unspecified Code(s): D64.9 - Anemia, unspecified Status: Acute Assessment and Plan: Acute on chronic anemia. Iron studies,
[2019-03-27 17:29] LABS: Glucose Point of Care 154 (65-105)
--- NOTE | 2019-03-27 18:02 | PM.DS ---
DS: Diagnosis Admitting Diagnosis Admitting Diagnosis: Acidosis Discharge Diagnosis (1) Acute respiratory failure: Qualifiers: Respiratory failure complication: hypoxia Qualified Code(s): J96.01 - Acute respiratory failure with hypoxia Code(s): J96.00 - Acute respiratory failure, unspecified whether with hypoxia or hypercapnia Status: Acute Assessment and Plan: Patient developed respiratory distress requiring BiPAP then intubation on 03/15/19. She was treated with aggressive pulmonary care. She was extubated on 03/19/19 to high-flow oxygen. CTA chest no pulmonary embolism but extensive bilateral airspace disease with positive sputum for Pseudomonas consistent with Pseudomonas pneuomnia. Echo with diastolic dysfunction grade 2, severe pulmonary hypertension and EF greater than 75%. CXR on 03/21 showing pneumonia vs pulmonary edema. Lasix IV once on 03/22 and again on 03/23 with good UOP. Her weight is much lower than on admission. Weaned from high flow to 2.5L nasal cannula. Treated with IV cefepime and transtioned to Levaquin to complete abx. Treated with nebulizers. (2) Septic shock: Code(s): A41.9 - Sepsis, unspecified organism; R65.21 - Severe sepsis with septic shock Status: Acute Assessment and Plan: Blood pressure monitored closely. Urine culture positive for Klebsiella and Proteus. All blood cultures negative thus far. MRSA nasal culture negative. Sputum positive for Pseudomonas. WBC remained normal. As above. (3) Confusion: Code(s): R41.0 - Disorientation, unspecified Status: Acute Assessment and Plan: Patient intermittently confused. Her home buspirone and Celexa was continued. Could be ICU psychosis. Could be related to steroids. Her Gabapentin was also held early in her hospital course. Brain CT showing no acute findings. Her symptoms were improving with conservative treatment. Treated with physical and occupational therapy. (4) Pneumonia: Qualifiers: Laterality: bilateral Lung location: unspecified part of lung Pneumonia type: due to unspecified organism Qualified Code(s): J18.9 - Pneumonia, unspecified organism Code(s): J18.9 - Pneumonia, unspecified organism Status: Acute Assessment and Plan: CTA chest as noted above. Sputum positive for Pseudomonas. Treated with Cefepime and neb treatments. As above. (5) Acute UTI: Code(s): N39.0 - Urinary tract infection, site not specified Status: Acute Assessment and Plan: Urine culture growing Klebsiella pneumoniae and Proteus mirabilis both sensitive to IV cefepime. Patient has completed a course of cefepime. (6) Dysphagia: Qualifiers: Dysphagia type: unspecified Qualified Code(s): R13.10 - Dysphagia, unspecified Code(s): R13.10 - Dysphagia, unspecified Status: Acute Assessment and Plan: Patient had trouble swallowing pills. Bedside swallow unable to be performed on 03/20/19. Minced/Moist level 5 diet started by metal spraying machine operator on 03/21/19 and she seemed to tolerate this diet. Speech therapy re-evaluated the patient 03/23/19 and felt she could have her diet advanced. Diet now Level 7 easy to chew. Patient not eating much. Complains of mouth pain (see below). Encourage oral intake. (7) Candidiasis of mouth: Code(s): B37.0 - Candidal stomatitis Status: Acute Assessment and Plan: Received IV fluconazole before intubation. No thrush but patient complaining of odynophagia and poor oral intake so Nystatin swish/swallow started. Symptoms improved but now complains of mouth sores. Acyclovir added. (8) HTN (hypertension): Qualifiers: Hypertension type: essential hypertension Qualified Code(s): I10 - Essential (primary) hypertension Code(s): I10 - Essential (primary) hypertension Status: Acute Assessment and Plan: Blood pressure monitored
[2019-03-27 19:26] LABS: Glucose Point of Care 128 (65-105)
--- NOTE | 2019-03-27 19:52 | PC.NURSE ---
Patient encouraged to take PO acyclovir several times and patient refused stating, I am okay, I will take it tomorrow. Patient was explained that she was going home tonight but patient still refused medication.
== END 2019-03-27 20:20 | DRG 720 ==
LOC: ANHED 19:36 → ANHIMU 19:59 → ANH3MEDSUR 03-14 10:05 → ANHIMU 03-14 18:27 → ANHICU 03-15 13:05 → ANH3MEDSUR 03-25 13:42
PROVIDERS: Family Medicine; Hospitalist; Internal Medicine; Internal Medicine Critical Care Medicine; Physician Assistant; Admitting Provider Internal Medicine; Emergency Provider Family Medicine; PCP Nurse Practitioner Adult Health; Visit Provider Internal Medicine
DX: A41.9 Sepsis, unspecified organism (principal); J15.1 Pneumonia due to Pseudomonas; N39.0 Urinary tract infection, site not specified; L97.513 Non-pressure chronic ulcer of other part of right foot with necrosis of muscle; J96.01 Acute respiratory failure with hypoxia; R65.21 Severe sepsis with septic shock; D64.9 Anemia, unspecified; I10 Essential (primary) hypertension; E11.42 Type 2 diabetes mellitus with diabetic polyneuropathy; E86.0 Dehydration; E11.51 Type 2 diabetes mellitus with diabetic peripheral angiopathy without gangrene; F41.9 Anxiety disorder, unspecified; E11.621 Type 2 diabetes mellitus with foot ulcer; E78.5 Hyperlipidemia, unspecified; M06.9 Rheumatoid arthritis, unspecified; N17.9 Acute kidney failure, unspecified; B37.0 Candidal stomatitis; B37.81 Candidal esophagitis; L98.499 Non-pressure chronic ulcer of skin of other sites with unspecified severity; E87.6 Hypokalemia; D53.8 Other specified nutritional anemias; E87.4 Mixed disorder of acid-base balance; E87.70 Fluid overload, unspecified; F17.210 Nicotine dependence, cigarettes, uncomplicated; E03.9 Hypothyroidism, unspecified; B96.1 Klebsiella pneumoniae [K. pneumoniae] as the cause of diseases classified elsewhere; B96.4 Proteus (mirabilis) (morganii) as the cause of diseases classified elsewhere; E11.622 Type 2 diabetes mellitus with other skin ulcer; D63.8 Anemia in other chronic diseases classified elsewhere; R13.10 Dysphagia, unspecified; R41.0 Disorientation, unspecified
CPT/HCPCS: 31500; 36415; 36430; 36600; 70450; 71045; 71275; 80048; 80053; 80069; 80076; 80202; 81001; 82375; 82565; 82607; 82728; 82746; 82805; 83036; 83050; 83540; 83550; 83605; 83735; 83880; 83921; 84100; 84439; 84443; 84480; 84484; 85025; 85027; 85055; 85610; 85730; 86140; 86850; 86900; 86901; 86923; 87040; 87070; 87077; 87081; 87086; 87088; 87186; 87205; 87385; 87449; 87804; 87899; 92610; 93005; 93306; 93922; 94002; 94003; 94640; 94667; 94668; 96361; 96374; 96375; 97110; 97162; 97166; 97530; 99285; A9270; C1751; C9113; J0131; J0692; J0696; J1100; J1450; J1720; J1815; J1940; J2060; J2370; J2543; J2920; J3010; J3370; J3480; J7030; J7040; J7050; J7120; J7512; P9016; Q9967

== ENCOUNTER 2019-03-29 18:59 | Inpatient (IN) | payer OTHER, SELFPAY ==
[2019-03-29] VITALS (9 sets, daily range): BP systolic 91–116; BP diastolic 72–77; PULSE 54–109; RESP 20–28; TEMP 36.5–37.3; O2SAT 94–100; BMI 25.7
--- NOTE | ~2019-03-29 | CT_ITS ---
EXAMINATION: CTA chest PE abdomen pel EXAM DATE: 03/31/2019 12:56 INDICATION: Septic shock. Respiratory failure. TECHNIQUE: Spiral CTA of the chest (pulmonary arteries) was performed with 100 cc Omnipaque 350 intr avenous contrast injection. Images were acquired during the pulmonary arterial phase. Coronal maxi mum intensity projection 3D-reconstructions were created by the technologist on dedicated workstation . Axial, coronal and sagittal reformatted images were reviewed. Spiral CT of the abdomen and pelvis was then performed with the same intravenous contrast injection. Axial, coronal and sagittal reform atted images were reviewed. The dose-length product (DLP) for this examination was 1123.52 mGy-cm. The exposure was tailored according to patient size (auto mA exposure control), and iterative recons truction (ASIR) was used as additional dose reduction technique. Comparison is made to prior examinat ion from 03/15/2019. FINDINGS: CHEST: The main, central pulmonary arteries are dilated which can indicate elevated pulmonary arteria l pressure, pulmonary arterial hypertension. There are no filling defects within these pulmonary lucas xavier. There is patchy bibasilar pneumonia. No thoracic aortic dissection. There are no pleural or pericardial effusions. Scattered regions of endobronchial debris. Endotracheal tube is in position. There is no mediastinal, hilar or axillary lymphadenopathy. There is no pneumothorax. Heart nor mal in size. There is mild to moderate coronary arterial calcification, arterial sclerosis. There is mild to moderate emphysema. ABDOMEN PELVIS: Feeding tube is in position. There is mild to moderate peripancreatic inflammation, was not present on previous examination. Appearance is suspicious for acute uncomplicated pancreatiti s. Correlate with amylase and lipase levels. Liver, spleen, adrenal glands are unremarkable. There a re gallstones within an otherwise unremarkable gallbladder. No evidence of obstructive biliary disea se. Portal and splenic veins are patent. Kidneys enhance symmetrically. There is no hydronephrosis . Fibroid uterus. The bladder is collapsed with Iglesias catheter balloon anchor inside. There is no retroperitoneal or pelvic lymphadenopathy. There is mild scattered arteriosclerotic disease. There is a left femoral venous line. The stomach and small bowel are unremarkable. There is colonic fluid, correlate for diarrhea. No f ree intraperitoneal gas. There are bilateral rib fractures of varying ages. IMPRESSION: 1. Patchy bibasilar pneumonia, significant interval improvement. 2. Colonic fluid without wall thickening. Correlate for diarrhea. 3. Development of peripancreatic fat stranding likely acute uncomplicated pancreatitis. 4. Cholelithiasis. 5. No pulmonary emboli. Reviewed, dictated and finalized at location B. REPAIRER IMPRESSION: 1. Patchy bibasilar pneumonia, significant interval improvement. 2. Colonic fluid without wall thickening. Correlate for diarrhea. 3. Development of peripancreatic fat stranding likely acute uncomplicated panc reatitis. 4. Cholelithiasis. 5. No pulmonary emboli.
--- NOTE | ~2019-03-29 | XR_ITS ---
EXAMINATION: XR chest 1V portable DATE: 03/31/2019 05:41 INDICATION: Ventilated. TECHNIQUE: A single frontal view of the chest was obtained. COMPARISON: Chest single view 03/30/2019, chest CT 03/15/2019 FINDINGS: There are airspace opacities in the mid and lower lung zones. No pleural effusion or pneumo thorax. The heart size is normal. There is enlargement of main pulmonary artery, consistent with pulm onary arterial hypertension. The endotracheal tube tip is 3.2 cm above the debora. The nasogastric tu be tip is beyond the inferior margin of the radiograph, but at least to the stomach. IMPRESSION: 1. Stable airspace opacities in the mid and lower lung zones, consistent with pulmonary edema versus pneumonia. Reviewed, dictated and finalized at location A. SORTER IMPRESSION: 1. Stable airspace opacities in the mid and lower lung zones, consistent with p ulmonary edema versus pneumonia.
--- NOTE | ~2019-03-29 | XR_ITS ---
EXAMINATION: XR chest 1V portable EXAM DATE: 03/30/2019 14:25 INDICATION: Shortness of breath. TECHNIQUE: Portable AP frontal chest x-ray was obtained. Comparison is made to prior examination from 01/27/2020, 03/21/2019, 03/20/2019. FINDINGS: Approximately 8 mm sclerotic focus in the left humeral neck unchanged, could be bone island . Small amount of nonspecific right midlung zone edema or pneumonia. The lungs are otherwise clear. There are no pleural effusions. The cardiomediastinal silhouette is within normal limits. There is no pneumothorax suspected. There are bony degenerative changes. IMPRESSION: Small amount of right midlung zone edema or pneumonia. Reviewed, dictated and finalized at location B. GE HOUSE ATTENDANT
--- NOTE | ~2019-03-29 | XR_ITS ---
EXAMINATION: XR chest 1V portable INDICATION: Shortness of breath TECHNIQUE: Portable AP chest at 2003 hours COMPARISON: 03/21/2019 FINDINGS: There are mild interstitial and airspace opacities throughout the left lung and in the righ t mid and lower lung zones which are improved since the comparison examination. No pleural effusion o r pneumothorax is identified. The heart size is normal. A bone island is noted in the left proximal h umerus. IMPRESSION: 1. Mild interstitial and airspace opacities throughout the left lung and in the right mid and lower l livia zones, improved since the comparison examination, consistent with pulmonary edema versus pneumoni a. Reviewed, dictated and finalized at location A. ONAL TRUCK DRIVER IMPRESSION: 1. Mild interstitial and airspace opacities throughout the left lung and in the right mid and lower lung zones, improved since the comparison examination, con sistent with pulmonary edema versus pneumonia.
--- NOTE | ~2019-03-29 | CT_ITS ---
EXAMINATION: CT brain wo con DATE: 03/31/2019 08:43 INDICATION: Encephalopathy. TECHNIQUE: Computed tomography (CT) of the head was performed without intravenous contrast. The mA wa s adjusted according to patient size. Iterative reconstruction technique was employed. The dose-lengt h product was 605.33 mGy-cm. COMPARISON: Head CT 03/26/2019 FINDINGS: There are scattered areas of low attenuation in the cerebral white matter. There is no intr acranial hemorrhage, acute infarction, or abnormal intracranial mass lesion. The ventricles are rama l in size. The paranasal sinuses are clear. The orbits are normal. The mastoid air cells are normal. IMPRESSION: 1. Unchanged mild nonspecific cerebral white matter disease, which likely represents chronic small ve ssel ischemic disease. Reviewed, dictated and finalized at location A. RINTENDENT METER TESTS IMPRESSION: 1. Unchanged mild nonspecific cerebral white matter disease, which likely repre sents chronic small vessel ischemic disease.
--- NOTE | ~2019-03-29 | XR_ITS ---
EXAMINATION: XR chest ET placement INDICATION: Nasogastric and endotracheal tube placement TECHNIQUE: Portable AP chest at 202 hours COMPARISON: 1420 hours FINDINGS: An endotracheal tube has been inserted which ends 3.4 cm above the debora. A nasogastric tu be is in the stomach. There are airspace opacities of the mid and lower lung zones with slight worsen ing. No definite pleural effusion or pneumothorax is identified. The cardiomediastinal silhouette is stable. Lucent centered right upper quadrant calcifications are consistent with cholelithiasis. IMPRESSION: 1. Nasogastric and endotracheal tubes inserted in adequate position. 2. Worsening airspace opacities of the mid and lower lung zones, consistent with atelectasis versus p neumonia versus pulmonary edema. Reviewed, dictated and finalized at location A. ERS COMPENSATION CLAIMS ANALYST IMPRESSION: 1. Nasogastric and endotracheal tubes inserted in adequate position. 2. Worsening airspace opacities of the mid and lower lung zones, consistent wit h atelectasis versus pneumonia versus pulmonary edema.
--- NOTE | 2019-03-29 19:31 | ED.SOB ---
HPI - SOB/Dyspnea General Chief Complaint: Weakness Stated Complaint: diff breathing Time Seen by Provider: 03/29/19 19:06 Source: patient, family and EMS Mode of arrival: EMS Limitations: no limitations History of Present Illness HPI Narrative: The pt is a 58 y/o female who presents to the ED, via EMS, c/o SOB onset today. Per EMS, pt was discharged from this hospital on 03/27/19 following sepsis and pneumonia. Pt was here for a couple of weeks at that time. Pt was discharged to [place] for rehab, but EMS states that the pt got tired of being there and decided to sign out AMA. Pt then began to experience SOB, coughing, and pallor. EMS states that the pt had a saturation of 94% on 4 liters when they arrived, but her condition began to improve when she was put into the ambulance. Pt was also given oxygen by them. The pt states that her condition has improved. Pt's family notes that the pt has experienced some weakness due to her not moving much recently. MD elicited complaint: shortness of breath Context: recent illness (Pneumonia, sepsis) Timing: improved Associated symptoms: cough and other (Pallor, weakness (Per pt's family)) Treatment prior to arrival: oxygen Related Data Home Medications Medication Instructions Recorded Confirmed buspirone 7.5 mg PO DAILY 03/13/19 03/13/19 citalopram 40 mg PO DAILY 03/13/19 03/13/19 folic acid 1 mg PO DAILY 03/13/19 03/13/19 gabapentin 1,200 mg PO HS 03/13/19 03/13/19 gabapentin 600 mg PO QAM 03/13/19 03/13/19 leflunomide 20 mg PO DAILY 03/13/19 03/13/19 levothyroxine 100 mcg PO DAILY 03/13/19 03/13/19 pravastatin 40 mg PO DAILY 03/13/19 03/13/19 famotidine [Pepcid] 03/29/19 melatonin 3 mg PO HS PRN 03/29/19 03/29/19 Allergies Allergy/AdvReac Type Severity Reaction Status Date / Time No Known Allergies Allergy Verified 03/29/19 21:38 Review of Systems Review of Systems: All systems reviewed & are unremarkable except as noted in HPI and below Constitutional: Constitutional: Reports weakness (Per pt's family) Respiratory: Respiratory: Reports cough and Reports dyspnea Integumentary/Breasts: Skin/Breast: Reports other (Pallor) [facility] Past Medical History Medical History Acute respiratory failure Acute UTI Anemia Anxiety Candidiasis of mouth 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 Right great toe HTN (hypertension) Hyperlipidemia Hypokalemia Hypothyroid Metabolic acidosis with normal anion gap and failure of bicarbonate regeneration Peripheral neuropathy Pneumonia Rheumatoid arthritis Septic shock Type II diabetes mellitus Surgical History Surgical History H/O dilation and curettage Family History Family History Mother Diabetes mellitus Father Coronary artery disease Sibling Diabetes mellitus Social History Social History Social History: Primary care provider: Lisa Monreal NP Code status: Full code per patient request Smoking packs per day: 2 Smoking cigarettes per day: 40.0 Years smoked: 42 Smoking pack-years: 84.00 Smoking status: Current every day smoker Tobacco type: cigarettes Second hand tobacco smoke exposure: Yes Alcohol intake: never Substance use: never Additional living arrangements comments: Patient is however her ex- still lives with her and helps take care of her. She has 1 daughter who is healthy. Additional occupation/education comments: Disabled due to rheumatoid arthritis. Gender identity (if verbalized by the patient): Female Spiritual care concerns: No Agree to blood products: Yes Comments PCP: Lisa Monreal UNIVERSITY DEMONSTRATOR Exam Narrative: Exam Narrative: GENERAL: Well-appearing, well-nourished, and in no acute distress.pale HEAD: Normocephalic, atraumatic. EYES: PERRL
--- NOTE | 2019-03-29 19:36 | ECG_ITS ---
Measurements Intervals [place] Rate: 106 P: 63 ID: 135 QRS: 13 QRSD: 66 T: 29 QT: 346 QTc: 460 Interpretive Statements SINUS TACHYCARDIA ATRIAL PREMATURE COMPLEXES POSSIBLE LEFT ATRIAL ENLARGEMENT BORDERLINE ST-T WAVE ABNORMALITY- INF/LAT LEADS BASELINE ARTIFACT- I, II, AVR, AVL, AVF, V1-V2 ABNORMAL ECG Electronically Signed On 03-29-2019 20:11:38 DURALUMIN MECHANIC by Francisco Danielson D.O.
[2019-03-29] MEDS: IPRATROPIUM BR 0.02% INH SOLN 0.5 MG/2.5 ML VIAL INHALATION ×2 (19:50→22:01)
[2019-03-29] MEDS: ALBUTEROL SULFATE NEB 2.5 MG/0.5 ML INH 5 MG INHALATION ×2 (19:50→22:02)
[2019-03-29 19:54] LABS: Basophils Percent Auto 0.2 % (0.2-1.2); Hematocrit 32.5 % (37.0-47.0); Immature Granulocyte Absolute 0.05 K/mm3 (0.00-0.031); Immature Granulocyte Percent A 0.6 % (0-0.5); Lymphocytes Percent Auto 3.5 % (18.3-44.2); Mean Corpuscular HGB Conc 30.8 g/dl (32-36); Mean Corpuscular Hemoglobin 28.2 pg (26-34); Mean Corpuscular Volume 91.8 fl (80-100); Mean Platelet Volume 11.4 fl (7.4-10.4); Monocytes Absolute Auto 0.2 K/mm3 (0.1-0.6); Monocytes Percent Auto 2.2 % (2.6-8.5); Neutrophils Absolute Auto 8.1 K/mm3 (1.3-6.7); Neutrophils Percent Auto 93.5 % (45.5-73.1); Platelet Count Result 237 k/mm3 (150-375); Red Blood Count 3.54 M/mm3 (4.2-5.4); Red Cell Distribution Width 17.2 % (11.5-14.5); White Blood Count 8.6 K/mm3 (4.5-10.0)
[2019-03-29 20:02] LABS: Platelet Estimate Adequate (Adequate)
[2019-03-29 20:03] LABS: Anisocytosis 1+ (NORMAL); Ovalocytes 1+ (NORMAL)
[2019-03-29 20:05] LABS: Alanine Aminotransferase 33 U/L (4-35); Albumin Level 2.9 g/dL (3.5-5.1); Alkaline Phosphatase 214 U/L (38-126); Aspartate Amino Transferase 36 U/L (14-36); Bilirubin,Total 0.6 mg/dL (0.2-1.3); Blood Urea Nitrogen 22 mg/dL (7-17); Calcium 8.1 mg/dL (8.4-10.2); Carbon Dioxide 21 mmol/L (22-30); Chloride 104 mmol/L (98-107); Estimated Glomerular Filt Rate > 60; Glucose 276 mg/dL (65-105); Potassium 3.6 mmol/L (3.4-5.0); Sodium 134 mmol/L (137-145)
[2019-03-29 20:09] LABS: INR 1.8
[2019-03-29 20:14] LABS: NT Pro B Type Natriuretic Pept 837 PG/ML (5-100)
--- NOTE | 2019-03-29 23:14 | PC.NURSE ---
Called to give report on pt and Joe stated that [facility] was busy and would call me back.
[2019-03-30] VITALS (38 sets, daily range): BP systolic 69–144; BP diastolic 44–90; PULSE 57–124; RESP 19–39; TEMP 36.4–39.4; O2SAT 93–100
[2019-03-30 00:53] LABS: Glucose Point of Care 137 (65-105)
--- NOTE | 2019-03-30 00:56 | ECG_ITS ---
Measurements Intervals [place] Rate: 105 P: 38 AL: 144 QRS: -8 QRSD: 70 T: 30 QT: 323 QTc: 427 Interpretive Statements SINUS TACHYCARDIA VENTRICULAR PREMATURE COMPLEX DELAYED PRECORDIAL R/S TRANSITION BASELINE ARTIFACT- I, II, III, AVR, AVL, AVF, V1-V6 ABNORMAL ECG Electronically Signed On 03-30-2019 7:02:20 WEB APPLICATIONS ARCHITECT by Francisco Danielson D.O.
--- NOTE | 2019-03-30 01:04 | ADMGEN ---
This patient, Christie Andrade, was admitted to 3 [facility] Surg Room 322-01. Patient/family oriented to hospital policies and general routines including ID bracelet, bed and alarms, visiting hours, pain management, procedures, bathroom and other care routines, personal items, smoking policy, room service/diet, and visiting hours. Valuables list has been completed. Information on how to activate the Rapid Response Team has been discussed. Patient/Family are encouraged to report perceived risks to care and to ask questions if they do not understand what they are told or what they should do.
[2019-03-30 01:06] LABS: Alveolar/Arterial O2 Gradient 85.8 mmHg; Base Excess ABG -5.6 mEq/l (+/-2.0); Carboxyhemoglobin 0.3 % THb (0-2.0); Fractional Inspired Oxygen 28 %; Methemoglobin ABG 0.2 %THb (0-1.5); Oxygen Content ABG 12.5 %vol (16.0-22.0); Oxygen Saturation ABG 88.1 % (95.0-100.0); Oxyhemoglobin 83.7 % THb (90.0-100.0); PCO2 ABG 45.3 mmHg (35.0-45.0); PO2 ABG 60.4 mmHg (80.0-100.0); PO2 FiO2 Ratio Arterial Blood 2.16 %; Reduced Hemoglobin 15.8 %THb (0-5.0); Total Hemoglobin 10.6 g/dL (12.0-18.0); pH ABG 7.283 (7.350-7.450)
[2019-03-30 01:07] LABS: Device NASAL CANNULA; Modified Allen's Test Pass; Site Drawn RIGHT RADIAL
--- NOTE | 2019-03-30 01:45 | PM.IMHP ---
H&P: HPI History of Present Illness Chief complaint: Shortness of breath. Narrative: Christie Andrade is a 58 year old female recently discharged from the hospital after being treated for acute respiratory failure and Pseudomonas pneumonia. Her medical history is significant for tobacco abuse, hypertension, hypothyroidism, diabetes, and rheumatoid arthritis. She was discharged to [facility] for rehab, but left against medical advice yesterday afternoon. Shortly thereafter, she developed respiratory distress, EMS was summoned, and she was brought in for evaluation. She was admitted due to ongoing hypoxia, and not long after arriving to the floor developed respiratory distress and she was placed on BiPAP and transferred to the IMU. She does note feeling quite anxious, which makes her shortness of breath worse. She is also complaining of mild heaviness in her chest, especially when she is feeling short of breath. She continues to have a loose cough, but has a difficult time getting it up. She denies fever, chills, sweats, nausea, and vomiting. 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 Right great toe HTN (hypertension) Hyperlipidemia Hypokalemia Hypothyroid Metabolic acidosis with normal anion gap and failure of bicarbonate regeneration Peripheral neuropathy Pneumonia Rheumatoid arthritis Septic shock Type II diabetes mellitus Surgical History Surgical History H/O dilation and curettage Family History Family History Mother Diabetes mellitus Father Coronary artery disease Sibling Diabetes mellitus Social History Social History Social History: Primary care provider: Lisa Monreal NP Code status: Full code per patient request Smoking packs per day: 2 Smoking cigarettes per day: 40.0 Years smoked: 42 Smoking pack-years: 84.00 Smoking status: Current every day smoker Tobacco type: cigarettes Second hand tobacco smoke exposure: Yes Smoking end date: 03/09/19 Alcohol intake: never Substance use: never Substance use type: does not use Additional living arrangements comments: Patient is however her ex- still lives with her and helps take care of her. She has 1 daughter who is healthy. Additional occupation/education comments: Disabled due to rheumatoid arthritis. Gender identity (if verbalized by the patient): Female Spiritual care concerns: No Agree to blood products: Yes Meds Home Medications and Allergies Home Medications Medication Instructions Recorded Confirmed Type buspirone 7.5 mg PO TID 03/13/19 03/30/19 History citalopram 40 mg PO DAILY 03/13/19 03/30/19 History folic acid 1 mg PO DAILY 03/13/19 03/30/19 History gabapentin 1,200 mg PO HS 03/13/19 03/29/19 History gabapentin 600 mg PO QAM 03/13/19 03/29/19 History leflunomide 20 mg PO DAILY 03/13/19 03/30/19 History levothyroxine 100 mcg PO DAILY 03/13/19 03/29/19 History pravastatin 40 mg PO DAILY 03/13/19 03/30/19 History carvedilol [Coreg] 12.5 mg PO Q12HR #60 tablet 03/27/19 03/29/19 Rx nystatin 5 ml PO QID 4 Days #80 ml 03/27/19 03/29/19 Rx ibuprofen 600 mg PO Q6H PRN 03/29/19 03/30/19 History Allergies Allergy/AdvReac Type Severity Reaction Status Date / Time No Known Allergies Allergy Verified 03/30/19 00:07 Vital Signs Vital Signs - 24 hr 03/29/19 19:54 03/29/19 19:58 03/29/19 22:05 Temperature Pulse Rate 109 H 107 H 96 Respiratory Rate 22 H 20 24 H Blood Pressure Pulse Oximetry 03/29
[2019-03-30] MEDS: ALBUTEROL SULFATE NEB 2.5 MG/0.5 ML INH 5 MG INHALATION ×4 (02:17→22:55)
[2019-03-30] MEDS: IPRATROPIUM BR 0.02% INH SOLN 0.5 MG/2.5 ML VIAL INHALATION ×4 (02:17→22:55)
[2019-03-30 03:23] LABS: Alveolar/Arterial O2 Gradient 141.7 mmHg; Base Excess ABG -5.7 mEq/l (+/-2.0); Carboxyhemoglobin 0.3 % THb (0-2.0); Device NON-INVASIVE VENT; Fractional Inspired Oxygen 40 %; HCO3 ABG 19.6 mEq/l (22.0-26.0); Methemoglobin ABG 0.2 %THb (0-1.5); Modified Allen's Test Pass; Oxygen Content ABG 13.9 %vol (16.0-22.0); Oxygen Saturation ABG 97.2 % (95.0-100.0); Oxyhemoglobin 94.7 % THb (90.0-100.0); PCO2 ABG 37.8 mmHg (35.0-45.0); Reduced Hemoglobin 4.8 %THb (0-5.0); Site Drawn LEFT RADIAL; Total Hemoglobin 10.3 g/dL (12.0-18.0); pH ABG 7.333 (7.350-7.450)
[2019-03-30 03:24] LABS: Non-Invasive Expiratory Pressure 6 CMH2O; Non-Invasive Inspiratory Pressure 16 CMH2O; Non-Invasive Vent Rate 18 /MIN
[2019-03-30 03:37] LABS: Influenza Control Positive
--- NOTE | 2019-03-30 03:45 | PC.NURSE ---
This patient, Christie Andrade, was received from [facility] on 03/30/19 at 0235. Personal belongings list checked and signed. Patient/family oriented to unit policies and routines
[2019-03-30 06:10] LABS: Glucose Point of Care 108 (65-105)
--- NOTE | 2019-03-30 06:28 | PC.NURSE ---
This patient, Christie Andrade, was transferred to [IMU ] on 03/30/19 at 0230. Personal belongings sent with patient. Belongings list checked and signed with receiving [RN ]. Report given to [MARTÍN Gutierrez RN ]. Appropriate documentation sent with patient.
--- NOTE | 2019-03-30 12:00 | PC.NURSE ---
Family requesting transfer to another facility. Dr. Gm dimas MD to bedside to discuss request.
[2019-03-30 12:20] LABS: Glucose Point of Care 74 (65-105)
[2019-03-30 14:33] LABS: Alveolar/Arterial O2 Gradient 111.1 mmHg; Base Excess ABG -4.7 mEq/l (+/-2.0); Fractional Inspired Oxygen 30 %; HCO3 ABG 16.9 mEq/l (22.0-26.0); Oxygen Content ABG 13.1 %vol (16.0-22.0); Oxygen Saturation ABG 96.7 % (95.0-100.0); Oxyhemoglobin 93.4 % THb (90.0-100.0); PO2 ABG 77.2 mmHg (80.0-100.0); PO2 FiO2 Ratio Arterial Blood 2.57 %; Total Hemoglobin 9.9 g/dL (12.0-18.0); pH ABG 7.508 (7.350-7.450)
[2019-03-30 14:36] LABS: Device NON-INVASIVE VENT; Modified Allen's Test Pass; PCO2 ABG 21.8 mmHg (35.0-45.0); Site Drawn LEFT RADIAL
[2019-03-30 14:37] LABS: Non-Invasive Expiratory Pressure 6 CMH2O; Non-Invasive Inspiratory Pressure 16 CMH2O; Non-Invasive Vent Rate 18 /MIN
[2019-03-30 15:05] LABS: Troponin I 0.109 ng/mL (0.000-0.034)
--- NOTE | 2019-03-30 15:55 | PC.NURSE ---
Report called to ZOLTAN Mancia at [facility] in [place], [place]
--- NOTE | 2019-03-30 16:54 | PC.NURSE ---
Dr. Worrell notified of patient's decrease LOC. MD to bedside. Family still requesting transfer. Waiting for transport to transfer patient. ETA [id number].
[2019-03-30 16:57] LABS: Glucose Point of Care 116 (65-105)
--- NOTE | 2019-03-30 17:01 | PM.IMPN ---
Progress Note: A&P Assessment and Plan (1) Acute and chronic respiratory failure: Code(s): J96.20 - Acute and chronic respiratory failure, unspecified whether with hypoxia or hypercapnia Status: Acute Assessment and Plan: currently on BiPAP with improvement. Pt family very upset asking about last visit, asking for transfer, transfer set up in [facility]. Pt having some SOB. ABG, cxr and trop stat ordered. Cardiology pulmology consult ordered. Continue to treat with BIPAP and IV levaquin. Pt is a smoker and has severe RA on immunosupressants Trop NL, CXr showing pneumonia mild pulmology edema ABG reviewed pt is alkalotic, PC02 21, P02, PH (2) History of recent pneumonia: Code(s): Z87.01 - Personal history of pneumonia (recurrent) Status: Acute Assessment and Plan: Recently treated for Pseudomonas pneumonia. Will resume Levaquin for now given acute worsening.with add zosyn (3) Rheumatoid arthritis: Qualifiers: Rheumatoid arthritis location: unspecified site Rheumatoid factor presence: unspecified presence Qualified Code(s): M06.9 - Rheumatoid arthritis, unspecified Code(s): M06.9 - Rheumatoid arthritis, unspecified Status: Acute Assessment and Plan: pt is on immunosuppressants enbrel (4) Type II diabetes mellitus: Qualifiers: Diabetes mellitus prison insulin use: without intermission coordinator use Diabetes mellitus complication status: with neurologic complications Diabetes mellitus complication detail: with unspecified neuropathy Qualified Code(s): E11.40 - Type 2 diabetes mellitus with diabetic neuropathy, unspecified Code(s): E11.9 - Type 2 diabetes mellitus without complications Status: Acute Assessment and Plan: pt is on a DM diet only (5) Smoking: Code(s): F17.200 - Nicotine dependence, unspecified, uncomplicated Status: Acute Assessment and Plan: pt is a smoker Subjective Date/time seen: 03/30/19 17:01 Interval history: 58 year old female Recently discharged from the hospital after being treated for acute respiratory failure and Pseudomonas pneumonia. She was discharged to [facility] for rehab, but left against medical advice yesterday afternoon. Pt family very upset asking about last visit, asking for transfer, transfer set up in [facility]. Pt having some SOB. ABG, cxr and trop stat ordered. Cardiology pulmology consult ordered. Continue to treat with BIPAP and IV levaquin. Pt is a smoker and has severe RA on immunosupressants Review of Systems Review of Systems: All systems reviewed & are unremarkable except as noted in HPI and below Respiratory: Respiratory: Reports chest congestion and Reports cough Neurologic: Reports confusion Exam Const: General: cooperative and healthy appearing; No in distress Nutritional Appearance: overweight Orientation/consciousness: oriented to person HENMT: Head: normal to inspection Resp: Effort & Inspection: abnormal respiratory pattern, audible wheezes and respiratory distress Cardio: Rhythm: other (tacycardic ) GI: Inspection: normal to inspection GI Palp: No abdominal tenderness, No Guarding due to palpation present (GI) and No Hepatomegaly present Auscultation: normal bowel sounds Neuro: General: oriented to person Objective Data Vital Signs Vital Signs: Vital Signs - 24 hr 03/29/19 19:54 03/29/19 19:58 03/29/19 22:05 Temperature Pulse Rate 109 H 107 H 96 Respiratory Rate 22 H 20 24 H Blood Pressure Pulse Oximetry 03/29/19 22:07 03/29/19 22:09 03/29/19 22:42 Temperature 36.5 C Pulse Rate 104 H 95 106 H Respiratory Rate 28 H 23 H 25 H Blood Pressure 91/77 L 112/75 Pulse Oximetry 94 99 03/29/19 23:19 03/29/19 23:30 03/29/19 23:51 Temperature 37.3 C Pulse Rate 106 H 54 L 102 H Respiratory Rate 26 H 24 H Blood Pressure 116/74 108/72 Pulse Oximetry 100 96 03/30/19 00:00 03/18
--- NOTE | 2019-03-30 17:39 | PM.CNPUL ---
History of Present Illness History of Present Illness Consult date: 03/30/19 Chief complaint: sob chf Narrative: Dr. Worrell has arranged a transfer; the patient and her 2 family members are at her bedside, and ambulance is on the way. Consult will not be completed. 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 Right great toe HTN (hypertension) Hyperlipidemia Hypokalemia Hypothyroid Metabolic acidosis with normal anion gap and failure of bicarbonate regeneration Peripheral neuropathy Pneumonia Rheumatoid arthritis Septic shock Type II diabetes mellitus Surgical History Surgical History H/O dilation and curettage Family History Family History Mother Diabetes mellitus Father Coronary artery disease Sibling Diabetes mellitus Social History Social History Social History: Primary care provider: Lisa Monreal NP Code status: Full code per patient request Smoking packs per day: 2 Smoking cigarettes per day: 40.0 Years smoked: 42 Smoking pack-years: 84.00 Smoking status: Current every day smoker Tobacco type: cigarettes Second hand tobacco smoke exposure: Yes Smoking end date: 03/09/19 Alcohol intake: never Substance use: never Substance use type: does not use Additional living arrangements comments: Patient is however her ex- still lives with her and helps take care of her. She has 1 daughter who is healthy. Additional occupation/education comments: Disabled due to rheumatoid arthritis. Gender identity (if verbalized by the patient): Female Spiritual care concerns: No Agree to blood products: Yes Meds Home Medications and Allergies Home Medications Medication Instructions Recorded Confirmed Type buspirone 7.5 mg PO TID 03/13/19 03/30/19 History citalopram 40 mg PO DAILY 03/13/19 03/30/19 History folic acid 1 mg PO DAILY 03/13/19 03/30/19 History gabapentin 1,200 mg PO HS 03/13/19 03/29/19 History gabapentin 600 mg PO QAM 03/13/19 03/29/19 History leflunomide 20 mg PO DAILY 03/13/19 03/30/19 History levothyroxine 100 mcg PO DAILY 03/13/19 03/29/19 History pravastatin 40 mg PO DAILY 03/13/19 03/30/19 History carvedilol [Coreg] 12.5 mg PO Q12HR #60 tablet 03/27/19 03/29/19 Rx nystatin 5 ml PO QID 4 Days #80 ml 03/27/19 03/29/19 Rx ibuprofen 600 mg PO Q6H PRN 03/29/19 03/30/19 History Allergies Allergy/AdvReac Type Severity Reaction Status Date / Time No Known Allergies Allergy Verified 03/30/19 00:07 Vital Signs Vital Signs - 24 hr 03/29/19 19:54 03/29/19 19:58 03/29/19 22:05 Temperature Pulse Rate 109 H 107 H 96 Respiratory Rate 22 H 20 24 H Blood Pressure Pulse Oximetry 03/29/19 22:07 03/29/19 22:09 03/29/19 22:42 Temperature 36.5 C Pulse Rate 104 H 95 106 H Respiratory Rate 28 H 23 H 25 H Blood Pressure 91/77 L 112/75 Pulse Oximetry 94 99 03/29/19 23:19 03/29/19 23:30 03/29/19 23:51 Temperature 37.3 C Pulse Rate 106 H 54 L 102 H Respiratory Rate 26 H 24 H Blood Pressure 116/74 108/72 Pulse Oximetry 100 96 03/30/19 00:00 03/30/19 01:35 03/30/19 02:17 Temperature Pulse Rate 108 H 57 L 69 Respiratory Rate 24 H 23 H Blood Pressure Pulse Oximetry 93 03/30/19 02:25 03/30/19 02:35 03/30/19 02:47 Temperature 37.2 C Pulse Rate 78 107 H 116 H Respiratory Rate 25 H 30 H Blood Pressure 140/89 Pulse Oximetry 94 03/30/19 04:15 03/30/19 05:00 03/30/19 08:00 Temperature Pulse Rate 111 H 111 H 110 H Respiratory Rate 38 H Blood Pressure Pulse Oximetry 93 03/30/19 08:12 03/30/19 08:33 03/30/19 09:10 Temperature 36.4 C 36.5 C Pulse
--- NOTE | 2019-03-30 18:45 | PC.NURSE ---
Dr. Worrell notified of worsening LOC. Lasix IVP ordered and given. Charlene called for ETA.
[2019-03-30] MEDS: FUROSEMIDE INJ 40 MG/4 ML VIAL 20 MG IV PUSH (18:57)
--- NOTE | 2019-03-30 19:45 | PC.NURSE ---
DJANGO DEVELOPER called at 194. Patient obtunded on BiPAP. Transfered to ICU 7, and intubated.
[2019-03-30 20:37] LABS: Alveolar/Arterial O2 Gradient 233.9 mmHg; Base Excess ABG -6.5 mEq/l (+/-2.0); Carboxyhemoglobin 0.3 % THb (0-2.0); Fractional Inspired Oxygen 50 %; HCO3 ABG 19.7 mEq/l (22.0-26.0); Methemoglobin ABG 0.3 %THb (0-1.5); Oxygen Content ABG 14.5 %vol (16.0-22.0); Oxygen Saturation ABG 93.8 % (95.0-100.0); Oxyhemoglobin 90.2 % THb (90.0-100.0); PCO2 ABG 41.6 mmHg (35.0-45.0); PO2 ABG 75.8 mmHg (80.0-100.0); PO2 FiO2 Ratio Arterial Blood 1.52 %; Reduced Hemoglobin 9.2 %THb (0-5.0); Total Hemoglobin 11.4 g/dL (12.0-18.0); pH ABG 7.293 (7.350-7.450)
[2019-03-30 20:38] LABS: Site Drawn ARTLINE
[2019-03-30 20:39] LABS: Arterial Blood Gas PEEP 5 cmH2O; Arterial Blood Gas Tidal Volume 400 ml; Arterial Blood Gas Vent Mode CMV; Arterial Blood Gas Ventilator rate 16 /MIN; Device VENTILATOR
--- NOTE | 2019-03-30 20:41 | PCRCNOTE ---
RAPID RESPONSE TEAM CALLED AT 1945. UNABLE TO OBTAIN SPO2OR BP, PT OBTUNDED AND NOT RESPONSIVE TO VERBAL OR PAINFUL STIMULI. ATTEMPTED ABG DRAW WITH NO SUCCESS. PT TRANSPORTED TO ICU VIA BVM FOR INTUBATION. ETT 7.5, 23@LIP, BILATERAL BREATH SOUNDS AND POSITIVE CO2 DETECTION. MECHANICAL ENGINEERING SPECIALIST MARTÍN MANDUJANO ALSO ATTENDED AND ASSISTED
--- NOTE | 2019-03-30 21:12 | P.PCNBED_ITS ---
Procedures Intubation: Intubation Date: 03/30/19 Intubation Time: 19:12 A pre- procedural Time-Out was completed immediately before starting the procedure and confirmed: Patient Identification, Site, Procedure, Patient Position and the Availability of Requisite Equipment: Yes Sedative: other Mg given: 20 Paralytic: succinylcholine Mg given: 40 Laryngoscope: fiber optic video scope ET tube size: cuffed Tube secured depth (cm): 20 Tube secured location: lips (20) Tube placement confirmation: visualized tube passing through cords and equal breath sounds bilaterally Patient tolerated procedure: well and no complications Intubation complications: none
--- NOTE | 2019-03-30 21:16 | WPDPROCEDUR ---
Procedures Central Line Placement: Left Femoral: Discussed w/ patient and/or surrogate, the non-emergent placement of a central venous catheter, including its clinical necessity/indication & associated potential risks & complications.: No The patient and/or surrogate understand(s) and acknowledge(s) the need to proceed with central venous catheter insertion as an important element of the patient's clinical management.: No Emergently Placed - (Given emergent patient conditions, temporal constraints may not have permitted and aforementioned informed consent.): Yes Central Line Date: 03/30/19 Central Line Time: 20:30 Pre-procedural Time-Out was completed immediately before starting the procedure and confirmed: Patient Identification, Site, Procedure, Patient Position and the Availability of Requisite Equipment.: Yes Patient Position: supine Patient placed on monitor/pulse ox: Yes Provider Prep: mask, sterile gown, sterile gloves, Max. sterile barrier precautions, cap and hand hygiene Central line prep: Povidone-Iodine 1% Ultrasound used for placement: Yes Central line lumen inserted: triple Beninese: 7 Length (cm): 16 Depth of Insertion (cm): 16 Post procedure: sutured in place, good blood return, all ports aspirated, flushed, capped and tegaderm Post procedure x-ray: other (no x ray noted as it is femoral) Patient tolerated procedure: well Complications: none
--- NOTE | 2019-03-30 21:23 | P.RRN_ITS ---
Critical Care Event Note Summary Code activated: No Narrative: This case had a high probability of a clinically significant, sudden, or life threatening deterioration of this patient's condition which required my full and direct attention, intervention and personal management. A rapid response was called as the patient was being placed on a stretcher to get on the ambulance to go to [facility]. EMS was unable to arouse the patient and she was respiratory distress. Her pulse was weak and thready. We were not able to get a blood pressure on her are feel her heart rate appropriately. Were not able to get arterial blood gases. The patient was on a BiPAP and was in severe respiratory distress. We were not able to obtain ABGs at that time. It was felt that the patient needed to emergently be intubated. The patient was intubated and Dr. Cooper had been called. Setting and sedations were ordered per Dr. Cooper side placed P orders in the computer per Dr. Cooper. Patient also had a low blood pressure 80/50 so emergent central line was placed as well. Critical care time: 75 - 104 mins
[2019-03-30] MEDS: NOREPINEPHRINE 8 MG/D5W 250 ML 8 MG/250 ML BAG 9.4 MG IV CONT (22:09)
[2019-03-30] MEDS: MIDAZOLAM HCL 50 MG in DEXTROSE 5% 90 ML IV CONT (22:15)
[2019-03-30] MEDS: GABAPENTIN 300 MG CAPSULE 1200 MG PO (23:26)
[2019-03-30] MEDS: NYSTATIN 100,000 UNITS/ML SUSP 5 ML ORAL.SUSP PO (23:26)
[2019-03-30] MEDS: busPIRone HCL 5 MG TABLET PO (23:27)
[2019-03-30] MEDS: busPIRone HCL 2.5 MG TABLET PO (23:27)
[2019-03-30 23:41] LABS: Lactic Acid 1.4 mmol/L (0.7-2.1)
[2019-03-31] VITALS (46 sets, daily range): BP systolic 92–115; BP diastolic 53–73; PULSE 75–102; RESP 18–22; TEMP 36.8–39.4; O2SAT 95–100; BMI 26.2
[2019-03-31 01:07] LABS: Glucose Point of Care 135 (65-105)
[2019-03-31] MEDS: IPRATROPIUM BR 0.02% INH SOLN 0.5 MG/2.5 ML VIAL INHALATION ×3 (03:05→15:15)
[2019-03-31] MEDS: ALBUTEROL SULFATE NEB 2.5 MG/0.5 ML INH 5 MG INHALATION ×3 (03:05→15:16)
[2019-03-31 04:18] LABS: Alveolar/Arterial O2 Gradient 199.8 mmHg; Base Excess ABG -5.6 mEq/l (+/-2.0); Carboxyhemoglobin 0.2 % THb (0-2.0); Fractional Inspired Oxygen 45 %; HCO3 ABG 18.5 mEq/l (22.0-26.0); Methemoglobin ABG 0.5 %THb (0-1.5); Oxygen Content ABG 12.7 %vol (16.0-22.0); Oxygen Saturation ABG 96.6 % (95.0-100.0); Oxyhemoglobin 94.1 % THb (90.0-100.0); PCO2 ABG 31.1 mmHg (35.0-45.0); PO2 ABG 85.7 mmHg (80.0-100.0); Reduced Hemoglobin 5.2 %THb (0-5.0); Total Hemoglobin 9.5 g/dL (12.0-18.0); pH ABG 7.392 (7.350-7.450)
[2019-03-31 04:19] LABS: Arterial Blood Gas PEEP 5 cmH2O; Arterial Blood Gas Vent Mode CMV; Arterial Blood Gas Ventilator rate 18 /MIN; Device VENTILATOR; Modified Allen's Test Pass; Site Drawn LEFT RADIAL
[2019-03-31 04:20] LABS: Arterial Blood Gas Tidal Volume 400 ml
[2019-03-31 04:44] LABS: Basophils Percent Auto 0.3 % (0.2-1.2); Hemoglobin 8.5 g/dL (12.0-15.0); Immature Granulocyte Absolute 0.05 K/mm3 (0.00-0.031); Immature Granulocyte Percent A 0.7 % (0-0.5); Lymphocytes Absolute Auto 0.75 K/mm3 (0.9-3.2); Lymphocytes Percent Auto 10.6 % (18.3-44.2); Mean Corpuscular HGB Conc 30.4 g/dl (32-36); Mean Corpuscular Hemoglobin 28.1 pg (26-34); Mean Corpuscular Volume 92.7 fl (80-100); Mean Platelet Volume 12.2 fl (7.4-10.4); Monocytes Absolute Auto 0.3 K/mm3 (0.1-0.6); Monocytes Percent Auto 4.1 % (2.6-8.5); Neutrophils Absolute Auto 5.9 K/mm3 (1.3-6.7); Neutrophils Percent Auto 84.3 % (45.5-73.1); Nucleated Red Blood Cells Perc 0.3 % (0.0-0.2); Platelet Count Result 159 k/mm3 (150-375); Red Blood Count 3.02 M/mm3 (4.2-5.4); Red Cell Distribution Width 17.6 % (11.5-14.5); White Blood Count 7.1 K/mm3 (4.5-10.0)
[2019-03-31] MEDS: LEVOTHYROXINE SODIUM 50 MCG TABLET 100 MCG PO (05:01)
[2019-03-31 05:11] LABS: Blood Urea Nitrogen 26 mg/dL (7-17); Calcium 7.5 mg/dL (8.4-10.2); Carbon Dioxide 21 mmol/L (22-30); Chloride 106 mmol/L (98-107); Estimated CRCL calculation 62 ml/min; Estimated Glomerular Filt Rate > 60; Glucose 147 mg/dL (65-105); Phosphorus 2.8 mg/dL (2.5-4.5); Potassium 2.9 mmol/L (3.4-5.0); Sodium 134 mmol/L (137-145)
[2019-03-31] MEDS: NYSTATIN 100,000 UNITS/ML SUSP 5 ML ORAL.SUSP PO ×3 (09:28→17:36)
[2019-03-31] MEDS: GABAPENTIN 300 MG CAPSULE 600 MG PO (09:29)
[2019-03-31] MEDS: busPIRone HCL 5 MG TABLET PO ×3 (09:29→17:40)
[2019-03-31] MEDS: CITALOPRAM HYDROBROMIDE 20 MG TABLET 40 MG PO (09:29)
[2019-03-31] MEDS: FOLIC ACID 1 MG TABLET PO (09:29)
[2019-03-31] MEDS: busPIRone HCL 2.5 MG TABLET PO ×3 (09:29→17:40)
[2019-03-31] MEDS: LEFLUNOMIDE 20 MG TABLET PO (09:29)
[2019-03-31] MEDS: PRAVASTATIN SODIUM 20 MG TABLET 40 MG PO (09:29)
--- NOTE | 2019-03-31 09:41 | WPDCNINT ---
Assessment and Plan Assessment and plan (1) Acute and chronic respiratory failure: Qualifiers: Respiratory failure complication: unspecified whether with hypoxia or hypercapnia Qualified Code(s): J96.20 - Acute and chronic respiratory failure, unspecified whether with hypoxia or hypercapnia Code(s): J96.20 - Acute and chronic respiratory failure, unspecified whether with hypoxia or hypercapnia Status: Acute Assessment and Plan: patient was found encephalopathic and obtunded, along with hypoxia, for airway protection on 03/30/2019 - chest x-ray on 03/31/2019 shows stable airspace opacities in the mid and lower lung zones consistent with pulmonary edema versus pneumonia. - off note patient recently had Pseudomonas in the sputum on 03/19/2019 which was pansensitive. Patient restarted on cefepime and vancomycin - blood cultures and sputum cultures have been obtained pending - patient had some troponin leak, given shortness of breath, pulmonary hypertension and patient has been not ambulatory since last admission on 03/14/2019, will obtain CT angio chest to rule out PE - patient currently sedated with fentanyl and Versed infusion, will maintained RASS of 0 to -2, daily sedation vacation (2) Diastolic dysfunction: Code(s): I51.89 - Other ill-defined heart diseases Status: Acute Assessment and Plan: patient had echocardiogram on 03/15/2019, showed grade 2 diastolic dysfunction, moderate to severe pulmonary hypertension, EF of 70% - chest x-ray shows patchy infiltrate which could be related to edema, pneumonia. - Will be cautious with IV fluids (3) Encephalopathy: Code(s): G93.40 - Encephalopathy, unspecified Status: Acute Assessment and Plan: patient was obtunded as she was being transferred to an outside hospital yesterday, transfer was canceled and patient was intubated. - CT scan of the head done this morning did not show any acute intracranial abnormalities - patient more awake this morning, follows commands. (4) Pulmonary hypertension: Code(s): I27.20 - Pulmonary hypertension, unspecified Status: Acute Assessment and Plan: Patient with severe pulmonary hypertension with RVSP of 77 mmHg. Pulmonology to Evaluate the patient - patient requesting patient be transferred to [facility]. (5) Elevated troponin: Code(s): R79.89 - Other specified abnormal findings of blood chemistry Status: Acute Assessment and Plan: Elevated troponin, 2nd troponin trending down. Likely related to type 2 infarct secondary to hypoxia, respiratory failure - appreciate Cardiology evaluation recommendation (6) Septic shock: Code(s): A41.9 - Sepsis, unspecified organism; R65.21 - Severe sepsis with septic shock Status: Resolved Assessment and Plan: patient with hypotension, respiratory failure, infiltrates on the chest x-ray - likely source - lungs - will also check UA - continue cefepime and vancomycin - cultures have been obtained and pending - patient on Levophed, maintain mean arterial pressures > 65 mmHg (7) DVT prophylaxis: Code(s): Z29.9 - Encounter for prophylactic measures, unspecified Status: Acute Assessment and Plan: SCDs (8) 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
[2019-03-31 10:14] LABS: CRP 5.6 mg/dL (<1.0)
[2019-03-31] MEDS: SODIUM CHLORIDE 0.9% IV 1,000 ML 75 ML IV CONT (10:18)
[2019-03-31 10:21] LABS: Troponin I 0.074 ng/mL (0.000-0.034)
--- NOTE | 2019-03-31 11:09 | PM.IMPN ---
Progress Note: A&P Assessment and Plan (1) Acute and chronic respiratory failure: Qualifiers: Respiratory failure complication: hypoxia Qualified Code(s): J96.21 - Acute and chronic respiratory failure with hypoxia Code(s): J96.20 - Acute and chronic respiratory failure, unspecified whether with hypoxia or hypercapnia Status: Acute Assessment and Plan: Now intubated. Had recent hospital stay starting at the end of February 2019 with Pseudomonas pneumonia and UTI. Was intubated at that time. Recently discharged to SNF. Chest x-ray reviewed with lens generator today with question of some residual pneumonia. CTA chest, abdomen, pelvis completed with patchy bibasilar pneumonia with significant interval improvement, colonic fluid without wall thickening, peripancreatic fat stranding, cholelithiasis and no pulmonary emboli. Patient on IV antibiotics. Nebulizer treatments. Pulmozyme added. Long discussion held with family this morning with family still wishing to pursue transfer to [facility] as possible. Discussed with lens generator. Treating Engineer Helper here was able to speak with lens generator at [facility] with patient accepted in transfer once bed available. Will continue to monitor in the meantime. (2) Septic shock: Code(s): A41.9 - Sepsis, unspecified organism; R65.21 - Severe sepsis with septic shock Status: Resolved Assessment and Plan: Lungs felt to be likely source. With previous admission, patient on IV cefepime and vancomycin. Blood and urine cultures obtained. Patient requiring Levophed. Blood pressure reviewed on 03/31/2019 and stable with Levophed. Telemetry reviewed on 03/31/2019 with sinus rhythm. Will continue to monitor. (3) Elevated troponin: Code(s): R79.89 - Other specified abnormal findings of blood chemistry Status: Acute Assessment and Plan: Patient with troponin noted to be elevated after event last night. Troponin level repeated and decreasing. No ischemic changes on EKG. Cardiology consulted and appreciate input. Continue treatment of other issues at the present time. (4) Diastolic dysfunction: Code(s): I51.89 - Other ill-defined heart diseases Status: Acute Assessment and Plan: Recent echocardiogram with diastolic dysfunction grade 2 as well as severe pulmonary hypertension. Cardiology has seen patient as noted above. No acute decompensated heart failure at this time. Eventually patient may warrant further evaluation once other issues are stabilized. (5) Encephalopathy: Code(s): G93.40 - Encephalopathy, unspecified Status: Acute Assessment and Plan: Unresponsive at time patient was to transfer to [facility] yesterday. Appears to be acute metabolic encephalopathy. CT brain with no acute changes. Will monitor. (6) Rheumatoid arthritis: Qualifiers: Rheumatoid arthritis location: unspecified site Rheumatoid factor presence: unspecified presence Qualified Code(s): M06.9 - Rheumatoid arthritis, unspecified Code(s): M06.9 - Rheumatoid arthritis, unspecified Status: Acute Assessment and Plan: Long-standing disease. May be contributing to lung issues. Patient previously has not wish to pursue any testing. Remains on leflunomide. Will needto follow-up with rheumatology. (7) Type II diabetes mellitus: Qualifiers: Diabetes mellitus custodial insulin use: without superintendent marine oil terminal use Diabetes mellitus complication status: with neurologic complications Diabetes mellitus complication detail: with unspecified neuropathy Qualified Code(s): E11.40 - Type 2 diabetes mellitus with diabetic neuropathy, unspecified Code(s): E11.9 - Type 2 diabetes mellitus without complications Status: Acute Assessment and Plan: Previous history of severe hypoglycemia. No longer on medication. Glucose reviewed on 03/31/2019 and presently stable. Will monitor. (8) Anemia:
--- NOTE | 2019-03-31 11:30 | PM.CNCAR ---
Assessment and Plan Assessment and plan (1) Acute and chronic respiratory failure: Code(s): J96.20 - Acute and chronic respiratory failure, unspecified whether with hypoxia or hypercapnia Status: Acute Assessment and Plan: Precipitating respiratory distress this admission possibly secondary to hypoxia while off supplemental O2. However, subsequent compromise unclear whether related to intravascular volume depletion with hypotension and ensuing respiratory failure requiring intubation and Norepineprhine support. She was not on telemetry when she acutely decompensated as she was on stretcher with EMS for transfer to [facility]. PE, mucus plug, and/or aspiration, bradyarrhythmia remain possible explanations. Given mild Troponin elevation with downward trend and lack of significant ischemic EKG changes, primary acute HI large enough to result in hemodynamic and respiratory compromise requiring intubation is unlikely. However, her coronary status remains unknown. Ischemic evaluation warranted depending upon her clinical course, response to therapy when she further recovers. Cannot exclude bradyarrhythmia although she has been stable on telemetry in sinus tachycardia. (2) Septic shock: Code(s): A41.9 - Sepsis, unspecified organism; R65.21 - Severe sepsis with septic shock Status: Resolved Assessment and Plan: Resume, remains on broad-spectrum IV antibiotics and pressor support. Per Critical Care Service. (3) Elevated troponin: Code(s): R79.89 - Other specified abnormal findings of blood chemistry Status: Acute Assessment and Plan: As above. (4) Diastolic dysfunction: Code(s): I51.89 - Other ill-defined heart diseases Status: Acute Assessment and Plan: On my personal review appears more consistent with early grade 1 in severity. Nonetheless, pt is not in acute decompensated heart failure at present. Monitor volume status closely. ProBNP elevated at 837 but lower than prior hospitalization at 3240. (5) Pulmonary hypertension: Code(s): I27.20 - Pulmonary hypertension, unspecified Status: Acute Assessment and Plan: Severe pulmonary HTN, RVSP 65mmHg upon my review. Most likely secondary to underlying lung disease this patient does not have significant valvular heart disease, preserved size and LV systolic function. Combination of longstanding tobacco abuse and rheumatoid arthritis most likely explanation. Likely complicating respiratory status. (6) Type II diabetes mellitus: Qualifiers: Diabetes mellitus complication detail: with unspecified neuropathy Diabetes mellitus complication status: with neurologic complications Diabetes mellitus buttermaker insulin use: without buttermaker use Qualified Code(s): E11.40 - Type 2 diabetes mellitus with diabetic neuropathy, unspecified Code(s): E11.9 - Type 2 diabetes mellitus without complications Status: Acute Assessment and Plan: Per primary service. (7) Rheumatoid arthritis: Qualifiers: Rheumatoid arthritis location: unspecified site Rheumatoid factor presence: unspecified presence Qualified Code(s): M06.9 - Rheumatoid arthritis, unspecified Code(s): M06.9 - Rheumatoid arthritis, unspecified Status: Acute Assessment and Plan: Unclear what contribution of any to her pulmonary status. (8) Anemia: Qualifiers: Anemia type: unspecified type Qualified Code(s): D64.9 - Anemia, unspecified Code(s): D64.9 - Anemia, unspecified Status: Acute Assessment and Plan: Stable. No evidence of active bleed. Aspirin daily reasonable with GI prophylaxis. (9) Smoking: Code(s): F17.200 - Nicotine dependence, unspecified, uncomplicated Status: Acute Assessment and Plan: Patient must quit smoking. More likely she has underlying significant lung disease than previously known given severity of pulmonary hypertension. Fur
[2019-03-31 11:56] LABS: Add Urine Microscopic? YES; Amorphous Sediment Urine Few; Appearance Urine Cloudy (Clear); Bacteria Urine Trace /hpf; Bilirubin Urine Negative (Negative); Blood Urine 1+ (Negative); Color Urine Amber (Yellow); Glucose Urine UA Negative (Negative); Ketones Urine Trace mg/dL (Negative); Leukocyte Esterase Ur Negative LEU/UL (Negative); Mucus Urine Rare /lpf; Nitrate Urine Negative (Negative); Protein Urine 1+ mg/dL (Negative); Specific Grav Ur 1.024 (1.001-1.035); Squamous Epithelial Cell Urine Rare /hpf (Few); Urobilinogen Urine Negative mg/dL (<2.0)
[2019-03-31 12:04] LABS: Glucose Point of Care 102 (65-105)
[2019-03-31 14:32] LABS: Lipase 26 U/L (23-300)
[2019-03-31] MEDS: DORNASE ALFA INH SOLN 1 MG/ML 2.5 ML AMP 2.5 MG INHALATION (15:22)
[2019-03-31] MEDS: MIDAZOLAM HCL 50 MG in DEXTROSE 5% 90 ML IV CONT (15:48)
--- NOTE | 2019-03-31 18:51 | PM.TDS ---
Transfer Discharge Sum: Prov Provider Date of admission: 03/30/19 11:02 Primary care physician: Lisa Monreal, ICE CREAM TRUCK DRIVER Admitting clinician: Irish Roasdo MD Attending physician on admission: Irish Rosado Consults: 03/30/19 Consult to Physician Routine Comment: Consulting Provider: Navin Cooper call worker person/MD group to consult: dr moreno Reason for consultation: respiratory failure Has provider been notified: Yes Consult to Physician Routine Comment: 03/30/2019 @ 1252 Lvm with officec re: consult Consulting Provider: Holly Connolly call worker person/MD group to consult: PULMOLOGY Reason for consultation: DISCUSSION ON COPD Has provider been notified: Yes Consult to Physician Routine Comment: 03/30/2019 @ 1257 Spoke with Rakel Cisneros re: consult Consulting Provider: Jaxon Castillo call worker person/MD group to consult: CARDIOLOGY Reason for consultation: ?CHF Has provider been notified: Yes 03/31/19 Wound/ET Consult Routine Reason for Consult:: Multiple ulcers on bilateral toes, friction on buttock Attending physician on discharge: Irish Hammonds Discharging clinician: Irish Hammonds Anticipated date of transfer: 03/31/19 Receiving physician/facility: Promotion Officer at [facility] in [place], [place]. DS: Diagnosis Admitting Diagnosis Admitting Diagnosis: Acute and chronic respiratory failure, unspecified whether with hypoxia or hypercapnia Discharge Diagnosis (1) Acute and chronic respiratory failure: Qualifiers: Respiratory failure complication: hypoxia Qualified Code(s): J96.21 - Acute and chronic respiratory failure with hypoxia Code(s): J96.20 - Acute and chronic respiratory failure, unspecified whether with hypoxia or hypercapnia Status: Acute (2) Septic shock: Code(s): A41.9 - Sepsis, unspecified organism; R65.21 - Severe sepsis with septic shock Status: Resolved (3) Elevated troponin: Code(s): R79.89 - Other specified abnormal findings of blood chemistry Status: Acute (4) Diastolic dysfunction: Code(s): I51.89 - Other ill-defined heart diseases Status: Acute (5) Encephalopathy: Code(s): G93.40 - Encephalopathy, unspecified Status: Acute (6) Rheumatoid arthritis: Qualifiers: Rheumatoid arthritis location: unspecified site Rheumatoid factor presence: unspecified presence Qualified Code(s): M06.9 - Rheumatoid arthritis, unspecified Code(s): M06.9 - Rheumatoid arthritis, unspecified Status: Acute (7) Type II diabetes mellitus: Qualifiers: Diabetes mellitus detention insulin use: without ferry terminal supervisor use Diabetes mellitus complication status: with neurologic complications Diabetes mellitus complication detail: with unspecified neuropathy Qualified Code(s): E11.40 - Type 2 diabetes mellitus with diabetic neuropathy, unspecified Code(s): E11.9 - Type 2 diabetes mellitus without complications Status: Acute (8) Anemia: Qualifiers: Anemia type: unspecified type Qualified Code(s): D64.9 - Anemia, unspecified Code(s): D64.9 - Anemia, unspecified Status: Acute (9) 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: Qualifiers: Laterality: right Qualified Code(s): L97.513 - Non-pressure chronic ulcer of other part of right foot with necrosis of muscle Code(s): L97.503 - Non-pressure chronic ulcer of other part of unspecified foot with necrosis of muscle Status: Acute Transfer Discharge Sum: Med Medications Active and Home Medications: Home Medications buspirone 7.5 mg PO TID 03/13/19 [History Confirmed 03/30/19] citalopram 40 mg PO DAILY 03/13/19 [History Confirmed 03/30/19] folic acid 1 mg PO DAILY 03/13/19 [History Confirmed 03/30/19] gabapentin 1,200 mg PO HS 03/13/19 [History Confirmed 03/29/19] gabapentin 600 mg PO QAM 03/13/19 [History Confirmed 03/29/19] leflunomide 20 mg PO DAILY 03/13/19 [History Confi
[2019-03-31 19:20] LABS: Glucose Point of Care 137 (65-105)
--- NOTE | 2019-03-31 20:19 | PC.NURSE ---
Pt transferred per [facility] to [facility] ICU.
== END 2019-03-31 20:18 | disposition short-term general hospital (02) | DRG 720 ==
LOC: ANHED 22:39 → ANH3MEDSUR 23:45 → ANHIMU 03-30 03:16 → ANHICU 03-30 03:18 → ANHIMU 03-30 04:26 → ANHICU 03-30 21:26
PROVIDERS: Family Medicine; Internal Medicine; Nurse Practitioner; Physician Assistant; Admitting Provider Hospitalist; Emergency Provider Family Medicine; PCP Nurse Practitioner Adult Health; Visit Provider Hospitalist
DX: A41.9 Sepsis, unspecified organism (principal); R65.21 Severe sepsis with septic shock; J18.9 Pneumonia, unspecified organism; I21.A1 Myocardial infarction type 2; J96.21 Acute and chronic respiratory failure with hypoxia; G93.41 Metabolic encephalopathy; M06.9 Rheumatoid arthritis, unspecified; E11.42 Type 2 diabetes mellitus with diabetic polyneuropathy; D64.9 Anemia, unspecified; L97.513 Non-pressure chronic ulcer of other part of right foot with necrosis of muscle; I27.20 Pulmonary hypertension, unspecified; F41.9 Anxiety disorder, unspecified; E78.5 Hyperlipidemia, unspecified; E87.6 Hypokalemia; E87.2 Acidosis; E03.9 Hypothyroidism, unspecified; I10 Essential (primary) hypertension; F17.210 Nicotine dependence, cigarettes, uncomplicated
CPT/HCPCS: 31500; 36415; 36600; 70450; 71045; 71275; 74177; 80048; 80053; 81001; 82375; 82805; 83050; 83605; 83690; 83735; 83880; 84100; 84484; 85025; 85610; 86140; 87040; 87086; 87804; 93005; 94002; 94640; 96365; 99285; A9270; C1751; G0378; G0379; J0131; J0692; J1940; J1956; J2250; J2543; J3010; J3370; J3480; J7030; J7050; Q9967

== ENCOUNTER 2019-04-22 11:18 | Inpatient (IN) | payer OTHER, SELFPAY ==
[2019-04-22] VITALS (16 sets, daily range): BP systolic 72–102; BP diastolic 38–73; PULSE 74–106; RESP 16–22; TEMP 36.6–37.7; O2SAT 94–98; BMI 26.8
--- NOTE | ~2019-04-22 | XR_ITS ---
XR abdomen/kub 1V INDICATION: Evaluate NG tube position. TECHNIQUE: Limited KUB perform for evaluating NG tube . COMPARISON: 04/23/2019 FINDINGS: NG tube tip in the stomach. Visualized bowel gas pattern is unremarkable.There are multipl e left lower rib fractures. There is bilateral airspace disease partially visualized. IMPRESSION: 1: NG tube tip in the stomach. 2: Multiple left lower rib fractures. Reviewed, dictated and finalized at location A.
--- NOTE | ~2019-04-22 | XR_ITS ---
XR chest 1V portable 04/22/2019 11:56 Indication: Weakness and lethargy. Procedure: 2 view chest Comparison: Comparison to multiple prior studies sequentially, with oldest reviewed study dated 03/29. Findings: Heart size normal. Diffuse bilateral airspace disease. Small right pleural effusion. No pne umothorax. Impression: 1: Diffuse bilateral airspace disease which may represent edema or pneumonia. 2: Small right pleural effusion. Reviewed, dictated and finalized at location A. BUCKER Impression: 1: Diffuse bilateral airspace disease which may represent edema or pneumonia. 2: Small right pleural effusion.
--- NOTE | ~2019-04-22 | XR_ITS ---
XR abdomen NG/feed tube insert INDICATION: Evaluate NG tube position. TECHNIQUE: Limited KUB perform for evaluating NG tube . COMPARISON: No prior studies for comparison. FINDINGS: NG tube tip in the stomach. Visualized bowel gas pattern is unremarkable. IMPRESSION: 1: NG tube tip in the stomach. Reviewed, dictated and finalized at location A.
--- NOTE | ~2019-04-22 | XR_ITS ---
XR chest 1V portable 04/24/2019 05:54 Indication: Respiratory distress. Intubation. Procedure: AP portable chest Comparison: Comparison to multiple prior studies sequentially, with oldest reviewed study dated 03/31. Findings: There is persistent mild interstitial edema which is unchanged. NG tube in the stomach. End otracheal tube 4.6 cm above the debora. Borderline heart size for technique. No pleural effusion or p neumothorax. Impression: 1: Stable mild interstitial edema. Reviewed, dictated and finalized at location A. Impression: 1: Stable mild interstitial edema.
--- NOTE | ~2019-04-22 | XR_ITS ---
XR chest 1V portable 04/23/2019 08:26 Indication: Dyspnea. Procedure: AP portable chest Comparison: Comparison to multiple prior studies sequentially, with oldest reviewed study dated 03/30. Findings: Cardiomegaly. There is improving pulmonary edema. No significant pleural effusion or pneumo thorax. Impression: 1: Improving pulmonary edema compared with 04/22/2019. Reviewed, dictated and finalized at location A. Impression: 1: Improving pulmonary edema compared with 04/22/2019.
--- NOTE | ~2019-04-22 | XR_ITS ---
XR chest ET placement 04/23/2019 09:58 Indication: Intubation. Respiratory distress. Procedure: AP portable chest Comparison: Comparison to multiple prior studies sequentially, with oldest reviewed study dated 03/30. Findings: Cardiomegaly with developing pulmonary edema. Possible small effusions. No pneumothorax. En dotracheal tube tip 4.6 cm above the debora. NG tube in the stomach. Impression: 1: Cardiomegaly with developing pulmonary edema. Reviewed, dictated and finalized at location A. Impression: 1: Cardiomegaly with developing pulmonary edema.
--- NOTE | ~2019-04-22 | XR_ITS ---
XR chest 1V portable 04/25/2019 05:57 Indication: Respiratory distress Procedure: AP portable chest Comparison: Comparison to multiple prior studies sequentially, with oldest reviewed study dated 08/2019. Findings: Endotracheal tube tip 4.7 cm above the debora. Her size normal. NG tube in the stomach. The re is diffuse bilateral airspace disease, most likely edema Small left pleural effusion. No pneumotho rax. Impression: 1: Progression of diffuse bilateral airspace disease, most likely edema. Reviewed, dictated and finalized at location A. Impression: 1: Progression of diffuse bilateral airspace disease, most likely edema.
--- NOTE | 2019-04-22 11:18 | ED.WEAKNESS ---
HPI - Weakness General Chief complaint: Weakness Stated complaint: weakness Time Seen by Provider: 04/22/19 11:18 Source: patient, family and RN notes reviewed Mode of arrival: EMS Limitations: no limitations History of Present Illness HPI Narrative: Pt is a 59 y/o female who presents to the ED via EMS with c/o worsening generalized weakness starting roughly 1 week ago. According to the pt's family, she has been treated at [facility] for pneumonia, respiratory failure, UTI, and septic shock within the past month. She notes that the pt was intubated while in the hospital. Pt's family states that the pt was discharged to [facility] on 03/31/19, but notes that she returned to [place] on 04/03/19 to receive another breathing treatment. She states that she was later evaluated for similar respiratory complications at [facility]. Pt's family notes that she was hospitalized at [facility] for several days and was eventually discharged 7 days ago. She states that the pt began having diarrhea while she was at [facility], but notes that her diarrhea became more constant over the past week. Pt states that she has also felt increasingly weak over the past week. Her family notes that she has been unable to walk. Pt's family also reports the pt having dyspnea on exertion and a sore on her buttocks. She currently denies any vomiting, CP, ABD pain, or fever. Pt states that she believes she may be dehydrated. Complaint: generalized weakness Onset (ago): week(s) (1) Duration: progressively worsening Location: generalized Context: recent illness Associated symptoms: other (dyspnea on exertion; diarrhea; sore on buttocks) Related Data Home Medications Medication Instructions Recorded Confirmed buspirone 7.5 mg PO TID 03/13/19 03/30/19 citalopram 40 mg PO DAILY 03/13/19 03/30/19 folic acid 1 mg PO DAILY 03/13/19 03/30/19 gabapentin 600 mg PO QAM 03/13/19 03/29/19 leflunomide 20 mg PO DAILY 03/13/19 03/30/19 levothyroxine 100 mcg PO DAILY 03/13/19 03/29/19 pravastatin 40 mg PO DAILY 03/13/19 03/30/19 alprazolam 0.25 mg PO DAILY 04/22/19 04/22/19 dornase aspen 2.5 mg INHALATION DAILY 04/22/19 04/22/19 prednisone 20 mg PO DAILY 04/22/19 04/22/19 quetiapine 25 mg PO HS 04/22/19 04/22/19 varenicline 0.5 mg PO DAILY 04/22/19 04/22/19 Allergies Allergy/AdvReac Type Severity Reaction Status Date / Time No Known Allergies Allergy Verified 04/22/19 15:30 Review of Systems Review of Systems: All systems reviewed & are unremarkable except as noted in HPI and below Constitutional: Constitutional: Denies fever(s) and Reports weakness (generalized) Cardiovascular: Cardiovascular: Denies chest pain Respiratory: Respiratory: Reports dyspnea on exertion Gastrointestinal: Gastrointestinal: Denies abdominal pain, Reports diarrhea and Denies vomiting Integumentary/Breasts: Skin/Breast: Reports sores (sore on buttocks) [facility] Past Medical History Medical History Acute respiratory failure Acute UTI Anemia Anxiety Candidiasis of mouth 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 Right great toe Diastolic CHF HTN (hypertension) Hyperlipidemia Hypokalemia Hypothyroid Metabolic acidosis with normal anion gap and failure of bicarbonate regeneration Peripheral neuropathy Pneumonia Pulmonary hypertension Rheumatoid arthritis Septic shock Type II diabetes mellitus Surgical History Surgical History H/O dilation and curettage Social History Social History Social History: Primary care provider: Lisa Monreal NP Code status: Full code per patient request Smoking packs per day: 2 Smoking cigarettes per day: 40.0 Years smoked: 42 Smoking pack-years: 84.00 Smoking status: Former smoker Tobacco type: cigarettes Second hand tobacco smoke exposure: Yes Smoking end date: 03/09/19
--- NOTE | 2019-04-22 11:24 | ECG_ITS ---
Measurements Intervals Leiter Rate: 102 P: 37 MT: 136 QRS: -65 QRSD: 82 T: 135 QT: 356 QTc: 466 Interpretive Statements SINUS TACHYCARDIA ATRIAL PREMATURE COMPLEXES LEFT AXIS DEVIATION LOW QRS VOLTAGE IN DIFFUSE LEADS BORDERLINE ST-T WAVE ABNORMALITY- INF/LAT LEADS BASELINE ARTIFACT- I, II, III, AVR, AVL, AVF, V4-V5 BORDERLINE ECG Electronically Signed On 04-22-2019 12:47:14 BILINGUAL SECRETARY by Francisco Danielson D.O.
[2019-04-22 12:27] LABS: Hematocrit 25.8 % (37.0-47.0); Hemoglobin 7.7 g/dL (12.0-15.0); Mean Corpuscular HGB Conc 29.8 g/dl (32-36); Mean Corpuscular Hemoglobin 28.8 pg (26-34); Mean Corpuscular Volume 96.6 fl (80-100); Mean Platelet Volume 11.2 fl (7.4-10.4); Platelet Count Result 207 k/mm3 (150-375); Red Blood Count 2.67 M/mm3 (4.2-5.4); Red Cell Distribution Width 23.5 % (11.5-14.5); White Blood Count 11.9 K/mm3 (4.5-10.0)
[2019-04-22 12:29] LABS: Add Urine Microscopic? YES; Appearance Urine Clear (Clear); Bacteria Urine Trace /hpf; Bilirubin Urine Negative (Negative); Blood Urine Negative (Negative); Color Urine Amber (Yellow); Glucose Urine UA Negative (Negative); Hyaline Casts Urine 20-29 /lpf; Ketones Urine Negative (Negative); Leukocyte Esterase Ur Trace LEU/UL (Negative); Mucus Urine Few /lpf; Nitrate Urine Negative (Negative); Protein Urine 1+ mg/dL (Negative); RBC Urine 0-2 /hpf (0-2); Specific Grav Ur 1.016 (1.001-1.035); Squamous Epithelial Cell Urine Few /hpf (Few)
[2019-04-22 12:35] LABS: Band Neutrophils Percent 10 % (0-6); Lymphocytes Absolute Manual 0.71 K/mm3 (1.1-4.5); Monocytes Absolute Manual 0.95 K/mm3 (0.1-0.90); Monocytes Percent Manual 8 % (3-9); Neutrophils Absolute Manual 10.23 K/mm3 (1.7-7.2); Neutrophils Percent Manual 76 % (46-73); Nucleated Red Blood Cells 1 %; Total Cells Counted 100
[2019-04-22 12:37] LABS: Platelet Estimate Adequate (Adequate); Poikilocytosis 2+ (NORMAL)
[2019-04-22 12:38] LABS: Burr Cells 1+ (NORMAL); Helmet Cells 1+ (NORMAL); Ovalocytes 1+ (NORMAL)
[2019-04-22 12:57] LABS: Alanine Aminotransferase 24 U/L (4-35); Albumin Level 2.2 g/dL (3.5-5.1); Alkaline Phosphatase 182 U/L (38-126); Aspartate Amino Transferase 22 U/L (14-36); Bilirubin,Total 0.7 mg/dL (0.2-1.3); Blood Urea Nitrogen 17 mg/dL (7-17); Calcium 6.7 mg/dL (8.4-10.2); Carbon Dioxide 18 mmol/L (22-30); Chloride 104 mmol/L (98-107); Estimated Glomerular Filt Rate > 60; Glucose 62 mg/dL (65-105); Potassium 2.5 mmol/L (3.4-5.0); Sodium 129 mmol/L (137-145)
[2019-04-22] MEDS: POTASSIUM CHLORIDE 20 MEQ TABLET 40 MEQ PO ×3 (14:08→20:46)
[2019-04-22] MEDS: SODIUM CHLORIDE 0.9% IV 1,000 ML 999 ML IV CONT (14:08)
[2019-04-22 14:22] LABS: Lactic Acid Reflex 1.4 mmol/L (0.7-2.1)
--- NOTE | 2019-04-22 15:12 | ADMGEN ---
This patient, Christie Andrade, was admitted to IMU Room 200-01. Patient/family oriented to hospital policies and general routines including ID bracelet, bed and alarms, visiting hours, pain management, procedures, bathroom and other care routines, personal items, smoking policy, room service/diet, and visiting hours. Valuables list has been completed. Information on how to activate the Rapid Response Team has been discussed. Patient/Family are encouraged to report perceived risks to care and to ask questions if they do not understand what they are told or what they should do.
--- NOTE | 2019-04-22 15:17 | ADMGEN ---
This patient, Christie Andrade, was admitted to IMU Room 200-01 at 1511. Patient/family oriented to hospital policies and general routines including ID bracelet, bed and alarms, visiting hours, pain management, procedures, bathroom and other care routines, personal items, smoking policy, room service/diet, and visiting hours. Valuables list has been completed. Information on how to activate the Rapid Response Team has been discussed. Patient/Family are encouraged to report perceived risks to care and to ask questions if they do not understand what they are told or what they should do.
--- NOTE | 2019-04-22 15:52 | PM.IMHP ---
H&P: HPI History of Present Illness Chief complaint: hypokalemia/weakness Narrative: Christie Andrade is a 59 year old female was discharged from [facility] after a prolonged stay of both [facility] and [facility] for respiratory failure and diastolic heart failure. She had Pseudomonas pneumonia and sepsis and respiratory failure with underlying COPD with exacerbation. She was discharged home 7 days ago. The day after discharge she had 2-3 soft stools after that she began to have several stools per day almost hourly while awake. This seemed to get a little better 3-4 days ago but then worsened again 2 days ago. Because of the worsening she was transported to the emergency department. En route to the emergency department her blood pressure was in the 70 systolic. She was hospitalized at [facility] March 14 through March 27 with Pseudomonas pneumonia and respiratory failure. She was hospitalized again at [facility] on March 30 and again required intubation, this time for likely diastolic congestive heart failure with underlying severe COPD. She was transferred to [facility] on March 31. Patient admitted to poor appetite and poor fluid intake. Family confirm this. She denied any fevers chills or sweats nausea vomiting or abdominal pain. She denied any bleeding. Stools were liquid and brown. She denied any travel or recent exposure to ill individuals. She has 2 dogs but both pets have been well. She drinks bottled water and lives in town. Prior to being hospitalized earlier this month she was ambulatory and functioning fairly independently. Since leaving [facility] she has been unable to get out of bed without assistance. She has a painful area on her right buttock. 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 Right great toe and left 2nd and 3rd toes Diastolic CHF HTN (hypertension) Hyperlipidemia Hypokalemia Hypothyroid Metabolic acidosis with normal anion gap and failure of bicarbonate regeneration Peripheral arterial occlusive disease Peripheral neuropathy Pneumonia Pulmonary hypertension Rheumatoid arthritis Septic shock Type II diabetes mellitus Surgical History Surgical History H/O dilation and curettage Family History Family History Mother Diabetes mellitus Father Coronary artery disease Sibling Diabetes mellitus Social History Social History (Updated 04/22/19 @ 17:20 by Kolby Torrez MD) Social History: Primary care provider: Lisa Monreal NP Code status: Full code Smoking packs per day: 2 Smoking cigarettes per day: 40.0 Years smoked: 42 Smoking pack-years: 84.00 Smoking status: Former smoker Tobacco type: cigarettes Second hand tobacco smoke exposure: Yes Smoking end date: 03/09/19 Alcohol intake: never Substance use: never Substance use type: does not use Additional living arrangements comments: Patient resides with her ex-, who is her primary caregiver. She has one daughter. Occupation/Education: retired Additional occupation/education comments: Disabled due to rheumatoid arthritis. Gender identity (if verbalized by the patient): Female Spiritual care concerns: Yes (Gnosticism) Agree to blood products: Yes Meds Home Medications and Allergies Home Medications Medication Instructions Recorded Confirmed Type buspirone 7.5 mg PO TID 03/13/19 04/22/19 History citalopram 40 mg PO DAILY 03/13/19 04/22/19 History folic acid 1 mg PO DAILY 03/13/19 04/22/19 History gabapentin 600 mg PO QPM 03/13/19 04/22/19 History lefl
[2019-04-22 17:07] LABS: Alveolar/Arterial O2 Gradient 58.4 mmHg; Base Excess ABG -7.5 mEq/l (+/-2.0); Device ROOM AIR; Fractional Inspired Oxygen 21 %; HCO3 ABG 16.1 mEq/l (22.0-26.0); Modified Allen's Test Pass; Oxygen Content ABG 9.8 %vol (16.0-22.0); Oxygen Saturation ABG 91.9 % (95.0-100.0); Oxyhemoglobin 85.8 % THb (90.0-100.0); PO2 ABG 60.2 mmHg (80.0-100.0); PO2 FiO2 Ratio Arterial Blood 2.87 %; Site Drawn LEFT RADIAL; Total Hemoglobin 8.1 g/dL (12.0-18.0); pH ABG 7.411 (7.350-7.450)
[2019-04-22] MEDS: SODIUM CHLORIDE 0.9% IV 500 ML 100 ML IV CONT (17:32)
[2019-04-22] MEDS: ALPRAZOLAM 0.25 MG TABLET PO (17:33)
[2019-04-22] MEDS: GABAPENTIN 300 MG CAPSULE 600 MG PO (18:24)
[2019-04-22] MEDS: busPIRone HCL 5 MG TABLET PO (18:24)
[2019-04-22] MEDS: CHOLESTYRAMINE LIGHT 4 GM POWD.PACK PO (18:25)
[2019-04-22] MEDS: VANCOMYCIN ORAL 125 MG/2.5 ML SYRUP PO ×2 (18:26→23:48)
[2019-04-22] MEDS: MAGNES & ALUM HYD/SIMETH/DIPHENHYD/LIDOCAINE 119 ML MOUTHWASH BY MOUTH ×2 (18:56→20:51)
[2019-04-22] MEDS: DORNASE ALFA INH SOLN 1 MG/ML 2.5 ML AMP 2.5 MG INHALATION (19:25)
[2019-04-22 20:15] LABS: Blood Urea Nitrogen 17 mg/dL (7-17); Carbon Dioxide 18 mmol/L (22-30); Chloride 107 mmol/L (98-107); Estimated CRCL calculation 79 ml/min; Estimated Glomerular Filt Rate > 60; Glucose 84 mg/dL (65-105); Magnesium 1.4 mg/dL (1.6-2.3); Potassium 2.8 mmol/L (3.4-5.0); Sodium 131 mmol/L (137-145)
[2019-04-22] MEDS: QUEtiapine FUMARATE 25 MG TABLET PO (20:45)
[2019-04-22 23:45] LABS: Potassium 3.3 mmol/L (3.4-5.0)
[2019-04-23] VITALS (30 sets, daily range): BP systolic 91–123; BP diastolic 51–86; PULSE 78–127; RESP 15–24; TEMP 36.1–37.6; O2SAT 86–100
[2019-04-23] MEDS: SODIUM CHLORIDE 0.9% IV 500 ML IV CONT (01:04)
[2019-04-23] MEDS: MAGNES & ALUM HYD/SIMETH/DIPHENHYD/LIDOCAINE 119 ML MOUTHWASH BY MOUTH ×2 (01:07→05:43)
[2019-04-23] MEDS: metroNIDAZOLE 250MG/ISO 50 ML 250 MG/50 ML BAG 50 MG IVPB ×4 (01:24→17:47)
[2019-04-23 01:41] LABS: INR 1.4; Prothrombin Time 16.8 Seconds (11.1-14.7)
[2019-04-23] MEDS: MAGNESIUM SULF 4 GM/WATER100ML 4 GM/100 ML BAG IVPB (03:24)
--- NOTE | 2019-04-23 05:02 | PC.NURSE ---
Daylight Savings Time For Daylight Savings Time Ending in the Fall - Clocks are moved back. For Daylight Savings Time Beginning in the Spring - Clocks are moved ahead. For [facility], the time of change occurs at 0200 hrs. Time is taken from the windows server support technician. This entry on the patient's chart recognizes the change in time reflected during documentation. Example: 2 entries for vital signs may be charted for 0200 hrs.
[2019-04-23 05:07] LABS: Hematocrit 22.6 % (37.0-47.0); Immature Platelet Fraction Pct 3.2 % (0.9-11.2); Immature Reticulocyte Fraction 43.1 % (3.0-15.9); Mean Corpuscular HGB Conc 29.6 g/dl (32-36); Mean Corpuscular Hemoglobin 28.6 pg (26-34); Mean Corpuscular Volume 96.6 fl (80-100); Mean Platelet Volume 11.8 fl (7.4-10.4); Platelet Count Result 162 k/mm3 (150-375); Red Blood Count 2.34 M/mm3 (4.2-5.4); Red Cell Distribution Width 23.8 % (11.5-14.5); Reticulocyte Hemoglobin Conten 28.1 pg (28.2-35.7); Reticulocyte Percent 2.91 % (0.7-4.3); Reticulocytes Absolute 0.07 B/L (32.2-175.7); White Blood Count 9.6 K/mm3 (4.5-10.0)
[2019-04-23 05:33] LABS: Alanine Aminotransferase 19 U/L (4-35); Albumin Level 1.8 g/dL (3.5-5.1); Alkaline Phosphatase 169 U/L (38-126); Aspartate Amino Transferase 17 U/L (14-36); Bilirubin,Total 0.5 mg/dL (0.2-1.3); Blood Urea Nitrogen 18 mg/dL (7-17); Calcium 6.1 mg/dL (8.4-10.2); Carbon Dioxide 19 mmol/L (22-30); Chloride 110 mmol/L (98-107); Estimated CRCL calculation 54 ml/min; Estimated Glomerular Filt Rate > 60; Glucose 76 mg/dL (65-105); Potassium 3.5 mmol/L (3.4-5.0); Sodium 132 mmol/L (137-145)
[2019-04-23] MEDS: VANCOMYCIN ORAL 125 MG/2.5 ML SYRUP PO (05:45)
[2019-04-23] MEDS: LEVOTHYROXINE SODIUM 100 MCG TABLET PO (05:45)
[2019-04-23 06:02] LABS: Iron 14 ug/dL (37-170)
[2019-04-23 06:11] LABS: Percent Iron Saturation 10 % (20-50)
[2019-04-23 06:24] LABS: Hemoglobin 6.7 g/dL (12.0-15.0)
[2019-04-23 06:30] LABS: Band Neutrophils Percent 7 % (0-6); Lymphocytes Absolute Manual 0.48 K/mm3 (1.1-4.5); Monocytes Absolute Manual 0.19 K/mm3 (0.1-0.90); Monocytes Percent Manual 2 % (3-9); Neutrophils Absolute Manual 8.92 K/mm3 (1.7-7.2); Neutrophils Percent Manual 86 % (46-73); Platelet Estimate Adequate (Adequate); Total Cells Counted 100
[2019-04-23 06:32] LABS: Burr Cells 1+ (NORMAL); Hypochromasia 1+ (NORMAL); Ovalocytes 2+ (NORMAL); Poikilocytosis 2+ (NORMAL); Polychromasia 1+ (NORMAL)
[2019-04-23 06:35] LABS: CRP 34.7 mg/dL (<1.0)
[2019-04-23 06:37] LABS: Folic Acid > 20.0 ng/mL (2.76->20); Vitamin B12 > 1000.0 pg/mL (239-931)
--- NOTE | 2019-04-23 08:40 | P.PNIM_ITS ---
Progress Note: A&P Assessment and Plan (1) Encephalopathy: Code(s): G93.40 - Encephalopathy, unspecified Status: Acute Assessment and Plan: * Given her tenuous respiratory status, respiratory failure is possible (sat 97% on 2 L) * ABG and CXR pending (2) Diarrhea: Qualifiers: Diarrhea type: unspecified type Qualified Code(s): R19.7 - Diarrhea, unspecified Code(s): R19.7 - Diarrhea, unspecified Status: Acute Assessment and Plan: * Likely Clostridium difficile * Stool for C diff still pending * Stool cultures pending * Empiric treatment with oral vancomycin and PRN cholestyramine, IV metronidazole (3) Hypokalemia: Code(s): E87.6 - Hypokalemia Status: Acute Assessment and Plan: * Likely due to poor intake and stool losses * Improved after supplementation * Follow-up lab including magnesium (4) Hypotension: Qualifiers: Hypotension type: unspecified hypotension type Qualified Code(s): I95.9 - Hypotension, unspecified Code(s): I95.9 - Hypotension, unspecified Status: Acute Assessment and Plan: * Clinically dehydrated with blood pressure 70 in the field * Receive 1 L of saline in the emergency department * Baseline blood pressures in the low 100s * 04/21 Bolus with additional 500 mL of saline over 5 hours * 04/22 early AM received additional 500 ml saline bolus * Monitor pressure (5) Hyponatremia: Code(s): E87.1 - Hypo-osmolality and hyponatremia Status: Acute Assessment and Plan: * Clinically due to dehydration (6) Diastolic dysfunction: Code(s): I51.89 - Other ill-defined heart diseases Status: Acute Assessment and Plan: * 3 exam suggests volume overload * CXR pending (7) 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: Qualifiers: Laterality: right Qualified Code(s): L97.513 - Non-pressure chronic ulcer of other part of right foot with necrosis of muscle Code(s): L97.503 - Non-pressure chronic ulcer of other part of unspecified foot with necrosis of muscle Status: Acute Assessment and Plan: * Topical Betadine (8) Anemia: Qualifiers: Anemia type: unspecified type Qualified Code(s): D64.9 - Anemia, unspecified Code(s): D64.9 - Anemia, unspecified Status: Acute Assessment and Plan: * Likely due to chronic disease as well as phlebotomies from recent hospitalizations * Obtain labs to exclude other etiology (9) Type II diabetes mellitus: Qualifiers: Diabetes mellitus terminal clerk insulin use: without alf use Diabetes mellitus complication status: with neurologic complications Diabetes mellitus complication detail: with unspecified neuropathy Qualified Code(s): E11.40 - Type 2 diabetes mellitus with diabetic neuropathy, unspecified Code(s): E11.9 - Type 2 diabetes mellitus without complications Status: Acute Assessment and Plan: * Monitor sugars daily as her admission blood sugar was only 62 (10) Rheumatoid arthritis: Qualifiers: Rheumatoid arthritis location: unspecified site Rheumatoid factor presence: unspecified presence Qualified Code(s): M06.9 - Rheumatoid arthritis, unspecified Code(s): M06.9 - Rheumatoid arthritis, unspecified Status: Acute Assessment and Plan: * Received Enbrel 2 days ago * Continue leflunomide * Clinically seems to be in remission (11) Oral ulcer: Code(s): K12.1 - Other forms of stomatitis Status: Acute
--- NOTE | 2019-04-23 08:40 | PM.IMPN ---
Progress Note: A&P Assessment and Plan (1) Encephalopathy: Code(s): G93.40 - Encephalopathy, unspecified Status: Acute Assessment and Plan: Given her tenuous respiratory status, respiratory failure is possible (sat 97% on 2 L) ABG and CXR pending (2) Diarrhea: Qualifiers: Diarrhea type: unspecified type Qualified Code(s): R19.7 - Diarrhea, unspecified Code(s): R19.7 - Diarrhea, unspecified Status: Acute Assessment and Plan: Likely Clostridium difficile Stool for C diff still pending Stool cultures pending Empiric treatment with oral vancomycin and PRN cholestyramine, IV metronidazole (3) Hypokalemia: Code(s): E87.6 - Hypokalemia Status: Acute Assessment and Plan: Likely due to poor intake and stool losses Improved after supplementation Follow-up lab including magnesium (4) Hypotension: Qualifiers: Hypotension type: unspecified hypotension type Qualified Code(s): I95.9 - Hypotension, unspecified Code(s): I95.9 - Hypotension, unspecified Status: Acute Assessment and Plan: Clinically dehydrated with blood pressure 70 in the field Receive 1 L of saline in the emergency department Baseline blood pressures in the low 100s 04/21 Bolus with additional 500 mL of saline over 5 hours 04/22 early AM received additional 500 ml saline bolus Monitor pressure (5) Hyponatremia: Code(s): E87.1 - Hypo-osmolality and hyponatremia Status: Acute Assessment and Plan: Clinically due to dehydration (6) Diastolic dysfunction: Code(s): I51.89 - Other ill-defined heart diseases Status: Acute Assessment and Plan: 04/22 exam suggests volume overload CXR pending (7) 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: Qualifiers: Laterality: right Qualified Code(s): L97.513 - Non-pressure chronic ulcer of other part of right foot with necrosis of muscle Code(s): L97.503 - Non-pressure chronic ulcer of other part of unspecified foot with necrosis of muscle Status: Acute Assessment and Plan: Topical Betadine (8) Anemia: Qualifiers: Anemia type: unspecified type Qualified Code(s): D64.9 - Anemia, unspecified Code(s): D64.9 - Anemia, unspecified Status: Acute Assessment and Plan: Likely due to chronic disease as well as phlebotomies from recent hospitalizations Obtain labs to exclude other etiology (9) Type II diabetes mellitus: Qualifiers: Diabetes mellitus retirement insulin use: without retirement use Diabetes mellitus complication status: with neurologic complications Diabetes mellitus complication detail: with unspecified neuropathy Qualified Code(s): E11.40 - Type 2 diabetes mellitus with diabetic neuropathy, unspecified Code(s): E11.9 - Type 2 diabetes mellitus without complications Status: Acute Assessment and Plan: Monitor sugars daily as her admission blood sugar was only 62 (10) Rheumatoid arthritis: Qualifiers: Rheumatoid arthritis location: unspecified site Rheumatoid factor presence: unspecified presence Qualified Code(s): M06.9 - Rheumatoid arthritis, unspecified Code(s): M06.9 - Rheumatoid arthritis, unspecified Status: Acute Assessment and Plan: Received Enbrel 2 days ago Continue leflunomide Clinically seems to be in remission (11) Oral ulcer: Code(s): K12.1 - Other forms of stomatitis Status: Acute Assessment and Plan: Possibly from recent prolonged intubation Difficulty healing likely due to malnutrition Magic mouthwash Dietary supplements (12) Right ischial pressure sore, stage 1: Code(s): L89.311 - Pressure ulcer of right buttock, stage 1 Status: Acute Assessment and Plan: Due to immobility and malnutrition Mepilex Reposition frequently Dietary supplements (13) Peripheral arterial occlus
--- NOTE | 2019-04-23 09:05 | PCDIET ---
This patient, Christie Andrade, was transferred to ICU-5 on 04/23/19 at 0905. Personal belongings sent with patient. Belongings list checked and signed with receiving RN. Report given to ZOLTAN Zamarripa. Appropriate documentation sent with patient.
--- NOTE | 2019-04-23 09:06 | ECG_ITS ---
Measurements Intervals [place] Rate: 82 P: 101 GA: 130 QRS: 40 QRSD: 73 T: 96 QT: 381 QTc: 445 Interpretive Statements SINUS RHYTHM LOW QRS VOLTAGE- DIFFUSE LEADS BORDERLINE ST-T WAVE ABNORMALITY- LATERAL LEADS BASELINE ARTIFACT- I, II, III, AVR, AVL, V3 BORDERLINE ECG Electronically Signed On 04-23-2019 15:44:27 CDT by Francisco Danielson D.O.
[2019-04-23] MEDS: PHENYLEPHRINE HCL 10 MG/ML VIAL (09:15)
[2019-04-23] MEDS: RAPID SEQUENCE INTUBATION KIT 1 EACH (09:17)
[2019-04-23] MEDS: PHENYLEPHRINE 1,000 MCG/10 ML SYRINGE 50 MCG IV PUSH ×2 (09:17→09:43)
[2019-04-23] MEDS: NOREPINEPHRINE 8 MG/D5W 250 ML 8 MG/250 ML BAG 9.4 MG IV CONT (09:50)
[2019-04-23] MEDS: LACTATED RINGERS 1,000 ML 999 ML (10:15)
[2019-04-23] MEDS: MIDAZOLAM HCL 50 MG in DEXTROSE 5% 90 ML IV CONT (10:24)
[2019-04-23 10:37] LABS: Alveolar/Arterial O2 Gradient 357.4 mmHg; Base Excess ABG -9.8 mEq/l (+/-2.0); Carboxyhemoglobin 0.3 % THb (0-2.0); Fractional Inspired Oxygen 100 %; HCO3 ABG 15.8 mEq/l (22.0-26.0); Oxygen Content ABG 11.7 %vol (16.0-22.0); Oxygen Saturation ABG 99.7 % (95.0-100.0); Oxyhemoglobin 97.3 % THb (90.0-100.0); PCO2 ABG 33.6 mmHg (35.0-45.0); PO2 FiO2 Ratio Arterial Blood 3.22 %; Reduced Hemoglobin 1.4 %THb (0-5.0); pH ABG 7.291 (7.350-7.450)
[2019-04-23 10:39] LABS: Arterial Blood Gas Vent Mode CMV; Arterial Blood Gas Ventilator rate 20 /MIN; Device VENTILATOR; Modified Allen's Test Pass; Site Drawn LEFT RADIAL; Total Hemoglobin 7.9 g/dL (12.0-18.0)
[2019-04-23 10:40] LABS: Arterial Blood Gas PEEP 5 cmH2O; Arterial Blood Gas Tidal Volume 400 ml
[2019-04-23 10:49] LABS: Hematocrit 23.1 % (37.0-47.0); Mean Corpuscular HGB Conc 29.9 g/dl (32-36); Mean Corpuscular Volume 97.1 fl (80-100); Mean Platelet Volume 11.5 fl (7.4-10.4); Platelet Count Result 258 k/mm3 (150-375); Red Blood Count 2.38 M/mm3 (4.2-5.4); Red Cell Distribution Width 23.9 % (11.5-14.5); White Blood Count 21.1 K/mm3 (4.5-10.0)
[2019-04-23 10:59] LABS: INR 1.4; Prothrombin Time 16.5 Seconds (11.1-14.7)
[2019-04-23 11:00] LABS: Lactic Acid Reflex 1.8 mmol/L (0.7-2.1); Partial Thromboplastin Time 34.3 SECONDS (22.3-36.8)
[2019-04-23 11:01] LABS: Hemoglobin 6.9 g/dL (12.0-15.0)
[2019-04-23 11:07] LABS: Band Neutrophils Percent 56 % (0-6); Eosinophils Absolute Manual 1.26 K/mm3 (0.02-0.5); Eosinophils Percent Manual 6 % (0-4); Lymphocytes Absolute Manual 3.16 K/mm3 (1.1-4.5); Neutrophils Absolute Manual 16.66 K/mm3 (1.7-7.2); Neutrophils Percent Manual 23 % (46-73); Nucleated Red Blood Cells 1 %; Platelet Estimate Adequate (Adequate); Total Cells Counted 100
[2019-04-23 11:08] LABS: Ovalocytes 2+ (NORMAL); Poikilocytosis 3+ (NORMAL); Schistocytes 1+ (NORMAL)
[2019-04-23 11:09] LABS: Alanine Aminotransferase 20 U/L (4-35); Albumin Level 1.8 g/dL (3.5-5.1); Alkaline Phosphatase 170 U/L (38-126); Aspartate Amino Transferase 20 U/L (14-36); Bilirubin,Total 0.6 mg/dL (0.2-1.3); Blood Urea Nitrogen 18 mg/dL (7-17); Burr Cells 1+ (NORMAL); Calcium 6.3 mg/dL (8.4-10.2); Carbon Dioxide 16 mmol/L (22-30); Chloride 111 mmol/L (98-107); Crenated RBC 2+ (NORMAL); Estimated CRCL calculation 45 ml/min; Estimated Glomerular Filt Rate 51; Glucose 135 mg/dL (65-105); Helmet Cells 1+ (NORMAL); Hypochromasia 1+ (NORMAL); Lipase 15 U/L (23-300); Magnesium 2.6 mg/dL (1.6-2.3); Phosphorus 3.8 mg/dL (2.5-4.5); Potassium 3.6 mmol/L (3.4-5.0); Sodium 132 mmol/L (137-145)
[2019-04-23 11:36] LABS: CRP 37.3 mg/dL (<1.0)
[2019-04-23 11:41] LABS: Troponin I 0.019 ng/mL (0.000-0.034)
[2019-04-23] MEDS: SODIUM BICARBONATE 8.4% 150 MEQ in DEXTROSE 5% 1,000 ML 1,000 ML 75 MEQ IV CONT (11:45)
[2019-04-23] MEDS: SODIUM BICARBONATE 8.4% 50 MEQ/50 ML VIAL IV PUSH (11:46)
[2019-04-23] MEDS: HYDROCORTISONE SODIUM SUCCINATE 100 MG/2 ML VIAL IV PUSH ×2 (11:46→17:48)
--- NOTE | 2019-04-23 11:49 | WPDCNINT ---
Assessment and Plan Assessment and plan (1) Encephalopathy: Code(s): G93.40 - Encephalopathy, unspecified Status: Acute Assessment and Plan: Encepahlopathy due to septic shock and dehydration - Will treat underlying cause (2) Acute and chronic respiratory failure: Qualifiers: Respiratory failure complication: hypoxia Qualified Code(s): J96.21 - Acute and chronic respiratory failure with hypoxia Code(s): J96.20 - Acute and chronic respiratory failure, unspecified whether with hypoxia or hypercapnia Status: Acute Assessment and Plan: patient with acute on chronic respiratory failure, requiring intubation on the morning of 04/23/2019, patient with decreased mentation and hypoxia - patient placed on CMV mode of ventilation, chest x-ray and ABGs reviewed, ventilator adjusted - continue bronchodilators, added Pulmozyme (3) Septic shock: Code(s): A41.9 - Sepsis, unspecified organism; R65.21 - Severe sepsis with septic shock Status: Resolved Assessment and Plan: patient with septic shock likely related to dehydration, hypovolema secondary to diarrhea - patient has been started on p.o. vancomycin and Flagyl for presumed C diff as patient has been on antibiotics off and on for the last 5 weeks - stool culture and C diff has been sent - patient given IV fluid bolus - central line was inserted in the left femoral vein. Right IJ CVC was attempted, could not thread the guidewire so aborted the procedure - continue Levophed and maintain mean arterial pressures greater than 65 mmHg (4) Anemia: Qualifiers: Anemia type: unspecified type Qualified Code(s): D64.9 - Anemia, unspecified Code(s): D64.9 - Anemia, unspecified Status: Acute Assessment and Plan: patient has history anemia hemoglobin low this morning, transfuse 1 unit of packed RBCs - check stool for occult blood (5) MARISSA (acute kidney injury): Code(s): N17.9 - Acute kidney failure, unspecified Status: Acute Assessment and Plan: patient with acute kidney injury, likely related to dehydration, hypovolemia, septic shock - patient with electrolyte disturbance and metabolic acidosis - started patient on bicarb infusion - additional IV fluids given - will maintain adequate mean arterial pressures for renal perfusion - continue monitor urine output, electrolytes and renal function (6) Dehydration: Code(s): E86.0 - Dehydration Status: Acute Assessment and Plan: likely dehydration secondary to severe diarrhea and decreased p.o. intake - continue maintenance IV fluids (7) Diastolic dysfunction: Code(s): I51.89 - Other ill-defined heart diseases Status: Acute Assessment and Plan: echocardiogram done on 03/15/2019 showed EF of greater than 75%, grade 2 diastolic dysfunction, severe pulmonary hypertension RVSP of 77 mmHg IV mildly enlarged with mild hypokinesis (8) Diarrhea: Qualifiers: Diarrhea type: unspecified type Qualified Code(s): R19.7 - Diarrhea, unspecified Code(s): R19.7 - Diarrhea, unspecified Status: Acute (9) Type II diabetes mellitus: Qualifiers: Diabetes mellitus rn long term care insulin use: without usp use Diabetes mellitus complication status: with neurologic complications Diabetes mellitus complication detail: with unspecified neuropathy Qualified Code(s): E11.40 - Type 2 diabetes mellitus with diabetic neuropathy, unspecified Code(s): E11.9 - Type 2 diabetes mellitus without complications Status: Acute Assessment and Plan: diarrhea could be related to multiple antibiotics the patient has been on and off for the last 5 weeks - check C diff (10) Rheumatoid arthritis: Qualifiers: Rheumatoid arthritis location: unspecified site Rheumatoid factor presence: unspecified presence Qualified Code(s): M06.9 - Rheumatoid arthritis, unsp
--- NOTE | 2019-04-23 12:54 | P.PCNBED_ITS ---
Procedures Central Line Placement: Left Femoral: Discussed w/ patient and/or surrogate, the non-emergent placement of a central venous catheter, including its clinical necessity/indication & associated potential risks & complications.: Yes The patient and/or surrogate understand(s) and acknowledge(s) the need to proceed with central venous catheter insertion as an important element of the patient's clinical management.: Yes Central Line Date: 04/23/19 Pre-procedural Time-Out was completed immediately before starting the procedure and confirmed: Patient Identification, Site, Procedure, Patient Position and the Availability of Requisite Equipment.: Yes Patient Position: trendelenburg Patient placed on monitor/pulse ox: Yes Provider Prep: mask, sterile gown, sterile gloves, Max. sterile barrier precautions, cap and hand hygiene Central line prep: Chlorhexidine scrub and sterile full body sheet applied Local anesthesia used: lidocaine 1% Amount of anesthesia used (ml): 3 Ultrasound used for placement: Yes Central line lumen inserted: triple German: 16 Length (cm): 16 Depth of Insertion (cm): 16 Post procedure: sutured in place, good blood return, all ports aspirated, flushed, capped, tegaderm, hemostatic disc, antimicrobial disc and aseptic technique maintained throughout procedure Post procedure x-ray: tip of catheter in good position and no pneumothorax seen Patient tolerated procedure: well Complications: none
[2019-04-23] MEDS: ENOXAPARIN 40 MG/0.4 ML SYRINGE SUB-Q (13:26)
[2019-04-23] MEDS: VANCOMYCIN ORAL 500 MG/10 ML SYRUP FEED TUBE ×2 (13:26→17:47)
[2019-04-23] MEDS: POVIDONE-IODINE 10% OINT 30 GM TUBE 1 APPLIC TOPICAL (13:26)
[2019-04-23] MEDS: SODIUM CHLORIDE 0.9% IV 250 ML 30 ML IV CONT (13:27)
[2019-04-23] MEDS: ALBUTEROL SULFATE NEB 2.5 MG/0.5 ML INH INHALATION ×2 (14:16→19:28)
[2019-04-23] MEDS: IPRATROPIUM BR 0.02% INH SOLN 0.5 MG/2.5 ML VIAL INHALATION ×2 (14:17→19:28)
--- NOTE | 2019-04-23 15:18 | P.PCNBED_ITS ---
Procedures Intubation: Intubation Date: 04/23/19 Intubation Time: 09:11 A pre- procedural Time-Out was completed immediately before starting the procedure and confirmed: Patient Identification, Site, Procedure, Patient Position and the Availability of Requisite Equipment: Yes Sedative: etomidate Paralytic: succinylcholine Laryngoscope: fiber optic video scope Assist device used: fiber optic device ET tube size: 7.5 Tube secured depth (cm): 23 Tube secured location: lips Tube placement confirmation: visualized tube passing through cords, equal breath sounds bilaterally, no breath sounds over epigastrium and confirmation by capnometry Patient tolerated procedure: well Intubation complications: none
[2019-04-23 16:57] LABS: Magnesium 2.3 mg/dL (1.6-2.3)
[2019-04-23 17:11] LABS: Troponin I 0.035 ng/mL (0.000-0.034)
[2019-04-23 17:13] LABS: Influenza Control Positive
[2019-04-23] MEDS: INSULIN ASPART (*BKC) 100 UNITS/ML SUB-Q (17:52)
[2019-04-23] MEDS: NOREPINEPHRINE 8 MG/D5W 250 ML 8 MG/250 ML BAG 20.6 MG IV CONT (17:59)
[2019-04-23 18:08] LABS: Glucose Point of Care 260 (65-105)
[2019-04-23] MEDS: DORNASE ALFA INH SOLN 1 MG/ML 2.5 ML AMP 2.5 MG INHALATION (19:28)
[2019-04-23 20:35] LABS: Troponin I 0.031 ng/mL (0.000-0.034)
[2019-04-24] VITALS (23 sets, daily range): BP systolic 89–124; BP diastolic 59–69; PULSE 76–122; RESP 19–26; TEMP 36.3–38.2; O2SAT 94–100; BMI 27.3
[2019-04-24] MEDS: metroNIDAZOLE 250MG/ISO 50 ML 250 MG/50 ML BAG 50 MG IVPB ×4 (00:17→17:05)
[2019-04-24] MEDS: VANCOMYCIN ORAL 500 MG/10 ML SYRUP FEED TUBE ×4 (00:18→17:08)
[2019-04-24 00:43] LABS: Glucose Point of Care 260 (65-105)
[2019-04-24] MEDS: SODIUM BICARBONATE 8.4% 150 MEQ in DEXTROSE 5% 1,000 ML 1,000 ML 75 MEQ IV CONT (00:48)
[2019-04-24] MEDS: INSULIN ASPART (*BKC) 100 UNITS/ML SUB-Q ×2 (00:52→07:24)
[2019-04-24] MEDS: ALBUTEROL SULFATE NEB 2.5 MG/0.5 ML INH INHALATION ×4 (01:22→20:11)
[2019-04-24] MEDS: IPRATROPIUM BR 0.02% INH SOLN 0.5 MG/2.5 ML VIAL INHALATION ×4 (01:22→20:11)
[2019-04-24] MEDS: HYDROCORTISONE SODIUM SUCCINATE 100 MG/2 ML VIAL IV PUSH ×3 (02:59→18:08)
[2019-04-24] MEDS: MIDAZOLAM HCL 50 MG in DEXTROSE 5% 90 ML 6 MG IV CONT (03:01)
[2019-04-24 04:56] LABS: Alveolar/Arterial O2 Gradient 202.3 mmHg; Base Excess ABG -2.3 mEq/l (+/-2.0); Carboxyhemoglobin 0.3 % THb (0-2.0); Fractional Inspired Oxygen 50 %; HCO3 ABG 21.3 mEq/l (22.0-26.0); Methemoglobin ABG 0.5 %THb (0-1.5); Oxygen Content ABG 13.9 %vol (16.0-22.0); Oxygen Saturation ABG 98.5 % (95.0-100.0); Oxyhemoglobin 96.6 % THb (90.0-100.0); PCO2 ABG 32.1 mmHg (35.0-45.0); PO2 ABG 118.1 mmHg (80.0-100.0); PO2 FiO2 Ratio Arterial Blood 2.36 %; Reduced Hemoglobin 2.6 %THb (0-5.0); Site Drawn LEFT RADIAL; Total Hemoglobin 10.1 g/dL (12.0-18.0); pH ABG 7.439 (7.350-7.450)
[2019-04-24 04:57] LABS: Arterial Blood Gas PEEP 5 cmH2O; Arterial Blood Gas Tidal Volume 400 ml; Arterial Blood Gas Vent Mode CMV; Arterial Blood Gas Ventilator rate 20 /MIN; Device VENTILATOR; Modified Allen's Test Pass
[2019-04-24] MEDS: LEVOTHYROXINE SODIUM INJ 100 MCG/5 ML VIAL 50 MCG IV PUSH (05:47)
[2019-04-24 06:12] LABS: Hematocrit 28.1 % (37.0-47.0); Hemoglobin 8.9 g/dL (12.0-15.0); Mean Corpuscular HGB Conc 31.7 g/dl (32-36); Mean Corpuscular Hemoglobin 28.8 pg (26-34); Mean Corpuscular Volume 90.9 fl (80-100); Platelet Count Result 213 k/mm3 (150-375); Red Blood Count 3.09 M/mm3 (4.2-5.4); Red Cell Distribution Width 21.1 % (11.5-14.5); White Blood Count 17.5 K/mm3 (4.5-10.0)
[2019-04-24 07:06] LABS: Alanine Aminotransferase 19 U/L (4-35); Albumin Level 1.9 g/dL (3.5-5.1); Alkaline Phosphatase 180 U/L (38-126); Aspartate Amino Transferase 15 U/L (14-36); Bilirubin,Total 0.5 mg/dL (0.2-1.3); Blood Urea Nitrogen 17 mg/dL (7-17); Calcium 6.5 mg/dL (8.4-10.2); Carbon Dioxide 22 mmol/L (22-30); Chloride 104 mmol/L (98-107); Estimated CRCL calculation 89 ml/min; Estimated Glomerular Filt Rate > 60; Glucose 284 mg/dL (65-105); Potassium 3.1 mmol/L (3.4-5.0); Sodium 129 mmol/L (137-145)
[2019-04-24 07:42] LABS: CRP 36.6 mg/dL (<1.0)
--- NOTE | 2019-04-24 07:45 | WPDINTPN ---
Progress Note: A&P Assessment and Plan (1) Acute and chronic respiratory failure: Qualifiers: Respiratory failure complication: hypoxia Qualified Code(s): J96.21 - Acute and chronic respiratory failure with hypoxia Code(s): J96.20 - Acute and chronic respiratory failure, unspecified whether with hypoxia or hypercapnia Status: Acute Assessment and Plan: patient with acute on chronic respiratory failure, requiring intubation on the morning of 04/23/2019, patient with decreased mentation and hypoxia - patient placed on CMV mode of ventilation, chest x-ray and ABGs reviewed, ventilator adjusted - continue bronchodilators, added Pulmozyme - chest x-ray suggests pulmonary edema. Will hold IV fluids unless patient responsive to fluids on NICOM. Lasix once blood pressure allows (2) Septic shock: Code(s): A41.9 - Sepsis, unspecified organism; R65.21 - Severe sepsis with septic shock Status: Resolved Assessment and Plan: patient with septic shock likely related to dehydration, hypovolema secondary to diarrhea - patient is positive for C diff - continue p.o. vancomycin and intravenous Flagyl - patient aggressively rehydrated with IV fluids - central line was inserted in the left femoral vein. Right IJ CVC was attempted, could not thread the guidewire so aborted the procedure - continue Levophed and maintain mean arterial pressures greater than 65 mmHg - [facility] assessment for further IV fluids (3) Clostridioides difficile diarrhea: Code(s): A04.72 - Enterocolitis due to Clostridium difficile, not specified as recurrent Status: Acute Assessment and Plan: see above Diarrhea appears to have improved as patient did not had any bowel movement overnight (4) Encephalopathy: Code(s): G93.40 - Encephalopathy, unspecified Status: Acute Assessment and Plan: Encepahlopathy due to septic shock and dehydration - Will treat underlying cause\ - currently sedated - daily sedation holiday (5) Anemia: Qualifiers: Anemia type: unspecified type Qualified Code(s): D64.9 - Anemia, unspecified Code(s): D64.9 - Anemia, unspecified Status: Acute Assessment and Plan: patient has history anemia hemoglobin low this morning, transfuse 1 unit of packed RBCs monitor and transfuse as needed (6) MARISSA (acute kidney injury): Code(s): N17.9 - Acute kidney failure, unspecified Status: Acute Assessment and Plan: patient with acute kidney injury, likely related to dehydration, hypovolemia, septic shock - patient with electrolyte disturbance and metabolic acidosis - replace low potassium and calcium. - creatinine has improved and patient now appears to be getting volume overloaded. Discontinue IV fluids - patient wasstarted patient on bicarb infusion. metabolic acidosis has improved. discontinue IV bicarb. Will add small amount of bicarb per tube. - additional IV fluids as needed to maintain renal perfusion - continue monitor urine output, electrolytes and renal function (7) Dehydration: Code(s): E86.0 - Dehydration Status: Acute Assessment and Plan: see above (8) Diastolic dysfunction: Code(s): I51.89 - Other ill-defined heart diseases Status: Acute Assessment and Plan: echocardiogram done on 03/15/2019 showed EF of greater than 75%, grade 2 diastolic dysfunction, severe pulmonary hypertension RVSP of 77 mmHg IV mildly enlarged with mild hypokinesis - for further IV fluids at this time (9) Type II diabetes mellitus: Qualifiers: Diabetes mellitus fci insulin use: without fci use Diabetes mellitus complication status: with neurologic complications Diabetes mellitus complication detail: with unspecified neuropathy Qualified Code(s): E11.40 - Type 2 diabetes mellitus with diabetic neuropathy, unspecified Code(s): E11.9 - Type 2 anila
[2019-04-24] MEDS: PANTOPRAZOLE SODIUM IV 40 MG VIAL IV PUSH (08:13)
[2019-04-24] MEDS: NOREPINEPHRINE 8 MG/D5W 250 ML 8 MG/250 ML BAG 13.1 MG IV CONT (08:13)
[2019-04-24] MEDS: ENOXAPARIN 40 MG/0.4 ML SYRINGE SUB-Q (08:14)
[2019-04-24] MEDS: POVIDONE-IODINE 10% OINT 30 GM TUBE 1 APPLIC TOPICAL (08:14)
--- NOTE | 2019-04-24 08:44 | PC.NURSE ---
Late entry orders from 04-23-19 enter today 04-24-19 at 0844 include -isolation for c.diff -MRSA swab -Iglesias catheter
[2019-04-24] MEDS: DORNASE ALFA INH SOLN 1 MG/ML 2.5 ML AMP 2.5 MG INHALATION ×2 (08:47→20:11)
--- NOTE | 2019-04-24 09:21 | P.PNIM_ITS ---
Progress Note: A&P Assessment and Plan (1) Clostridioides difficile diarrhea: Code(s): A04.72 - Enterocolitis due to Clostridium difficile, not specified as recurrent Status: Acute Assessment and Plan: * Continue oral vancomycin and IV metronidazole day 2 (2) Acute and chronic respiratory failure: Qualifiers: Respiratory failure complication: hypoxia Qualified Code(s): J96.21 - Acute and chronic respiratory failure with hypoxia Code(s): J96.20 - Acute and chronic respiratory failure, unspecified whether with hypoxia or hypercapnia Status: Acute Assessment and Plan: * Continue ventilatory support (3) Septic shock: Code(s): A41.9 - Sepsis, unspecified organism; R65.21 - Severe sepsis with septic shock Status: Resolved Assessment and Plan: * Due to C diff colitis * Continue oral vancomycin and IV metronidazole * Wean norepinephrine as possible (4) Encephalopathy: Code(s): G93.40 - Encephalopathy, unspecified Status: Acute Assessment and Plan: * Duet to sepsis, shock, c diff colitis (5) Hypokalemia: Code(s): E87.6 - Hypokalemia Status: Acute Assessment and Plan: * Likely due to poor intake and stool losses * Improved after supplementation * Follow-up lab including magnesium (6) Hypotension: Qualifiers: Hypotension type: unspecified hypotension type Qualified Code(s): I95.9 - Hypotension, unspecified Code(s): I95.9 - Hypotension, unspecified Status: Acute Assessment and Plan: * Clinically dehydrated with blood pressure 70 in the field * Receive 1 L of saline in the emergency department * Baseline blood pressures in the low 100s * 3/ Bolus with additional 500 mL of saline over 5 hours * 8 early AM received additional 500 ml saline bolus * Monitor pressure (7) Hyponatremia: Code(s): E87.1 - Hypo-osmolality and hyponatremia Status: Acute Assessment and Plan: * Clinically due to dehydration (8) Diastolic dysfunction: Code(s): I51.89 - Other ill-defined heart diseases Status: Acute Assessment and Plan: * 3 exam suggests volume overload * CXR pending (9) 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: Qualifiers: Laterality: right Qualified Code(s): L97.513 - Non-pressure chronic ulcer of other part of right foot with necrosis of muscle Code(s): L97.503 - Non-pressure chronic ulcer of other part of unspecified foot with necrosis of muscle Status: Acute Assessment and Plan: * Topical Betadine (10) Anemia: Qualifiers: Anemia type: unspecified type Qualified Code(s): D64.9 - Anemia, unspecified Code(s): D64.9 - Anemia, unspecified Status: Acute Assessment and Plan: * Likely due to chronic disease as well as phlebotomies from recent hospitalizations * Obtain labs to exclude other etiology (11) Type II diabetes mellitus: Qualifiers: Diabetes mellitus retirement insulin use: without retirement use Diabetes mellitus complication status: with neurologic complications Diabetes mellitus complication detail: with unspecified neuropathy Qualified Code(s): E11.40 - Type 2 diabetes mellitus with diabetic neuropathy, unspecified Code(s): E11.9 - Type 2 diabetes mellitus without complications Status: Acute Assessment and Plan: * Monitor sugars daily as her admission blood sugar was only 62 (12) Rheumatoid arthritis: Qualifiers: Rheumatoid arthritis location
--- NOTE | 2019-04-24 09:21 | PM.IMPN ---
Progress Note: A&P Assessment and Plan (1) Clostridioides difficile diarrhea: Code(s): A04.72 - Enterocolitis due to Clostridium difficile, not specified as recurrent Status: Acute Assessment and Plan: Continue oral vancomycin and IV metronidazole day 2 (2) Acute and chronic respiratory failure: Qualifiers: Respiratory failure complication: hypoxia Qualified Code(s): J96.21 - Acute and chronic respiratory failure with hypoxia Code(s): J96.20 - Acute and chronic respiratory failure, unspecified whether with hypoxia or hypercapnia Status: Acute Assessment and Plan: Continue ventilatory support (3) Septic shock: Code(s): A41.9 - Sepsis, unspecified organism; R65.21 - Severe sepsis with septic shock Status: Resolved Assessment and Plan: Due to C diff colitis Continue oral vancomycin and IV metronidazole Wean norepinephrine as possible (4) Encephalopathy: Code(s): G93.40 - Encephalopathy, unspecified Status: Acute Assessment and Plan: Duet to sepsis, shock, c diff colitis (5) Hypokalemia: Code(s): E87.6 - Hypokalemia Status: Acute Assessment and Plan: Likely due to poor intake and stool losses Improved after supplementation Follow-up lab including magnesium (6) Hypotension: Qualifiers: Hypotension type: unspecified hypotension type Qualified Code(s): I95.9 - Hypotension, unspecified Code(s): I95.9 - Hypotension, unspecified Status: Acute Assessment and Plan: Clinically dehydrated with blood pressure 70 in the field Receive 1 L of saline in the emergency department Baseline blood pressures in the low 100s 04/21 Bolus with additional 500 mL of saline over 5 hours 04/22 early AM received additional 500 ml saline bolus Monitor pressure (7) Hyponatremia: Code(s): E87.1 - Hypo-osmolality and hyponatremia Status: Acute Assessment and Plan: Clinically due to dehydration (8) Diastolic dysfunction: Code(s): I51.89 - Other ill-defined heart diseases Status: Acute Assessment and Plan: 04/22 exam suggests volume overload CXR pending (9) 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: Qualifiers: Laterality: right Qualified Code(s): L97.513 - Non-pressure chronic ulcer of other part of right foot with necrosis of muscle Code(s): L97.503 - Non-pressure chronic ulcer of other part of unspecified foot with necrosis of muscle Status: Acute Assessment and Plan: Topical Betadine (10) Anemia: Qualifiers: Anemia type: unspecified type Qualified Code(s): D64.9 - Anemia, unspecified Code(s): D64.9 - Anemia, unspecified Status: Acute Assessment and Plan: Likely due to chronic disease as well as phlebotomies from recent hospitalizations Obtain labs to exclude other etiology (11) Type II diabetes mellitus: Qualifiers: Diabetes mellitus senior living insulin use: without senior living use Diabetes mellitus complication status: with neurologic complications Diabetes mellitus complication detail: with unspecified neuropathy Qualified Code(s): E11.40 - Type 2 diabetes mellitus with diabetic neuropathy, unspecified Code(s): E11.9 - Type 2 diabetes mellitus without complications Status: Acute Assessment and Plan: Monitor sugars daily as her admission blood sugar was only 62 (12) Rheumatoid arthritis: Qualifiers: Rheumatoid arthritis location: unspecified site Rheumatoid factor presence: unspecified presence Qualified Code(s): M06.9 - Rheumatoid arthritis, unspecified Code(s): M06.9 - Rheumatoid arthritis, unspecified Status: Acute Assessment and Plan: Received Enbrel 2 days ago Continue leflunomide Clinically seems to be in remission (13) Oral ulcer: Code(s): K12.1 - Other forms of stomatitis Status: Acute
[2019-04-24] MEDS: SODIUM CHLORIDE 0.9% INJ 10 ML (09:35)
[2019-04-24] MEDS: POTASSIUM CHLORIDE 20 MEQ PACKET (FOR LIQUID) 40 MEQ PO (09:45)
[2019-04-24] MEDS: CALCIUM CHLOR 1,000MG/100ML NS 1,000 MG/100 ML BAG 100 MG IVPB (10:52)
[2019-04-24 12:16] LABS: Glucose Point of Care 169 (65-105)
[2019-04-24] MEDS: SODIUM BICARBONATE TAB 650 MG TABLET 1300 MG PO (17:08)
[2019-04-24 17:23] LABS: Magnesium 2.1 mg/dL (1.6-2.3)
[2019-04-24 17:24] LABS: Glucose Point of Care 149 (65-105)
[2019-04-25] VITALS (24 sets, daily range): BP systolic 75–101; BP diastolic 42–64; PULSE 107–151; RESP 20–28; TEMP 36.2–39.8; O2SAT 88–100
[2019-04-25] MEDS: VANCOMYCIN ORAL 500 MG/10 ML SYRUP FEED TUBE ×3 (00:09→12:43)
[2019-04-25] MEDS: metroNIDAZOLE 250MG/ISO 50 ML 250 MG/50 ML BAG 50 MG IVPB ×4 (00:09→18:52)
[2019-04-25 00:19] LABS: Glucose Point of Care 116 (65-105)
[2019-04-25] MEDS: IPRATROPIUM BR 0.02% INH SOLN 0.5 MG/2.5 ML VIAL INHALATION ×3 (02:35→14:10)
[2019-04-25] MEDS: ALBUTEROL SULFATE NEB 2.5 MG/0.5 ML INH INHALATION ×3 (02:36→14:11)
[2019-04-25 04:50] LABS: Hematocrit 31.2 % (37.0-47.0); Hemoglobin 9.6 g/dL (12.0-15.0); Mean Corpuscular HGB Conc 30.8 g/dl (32-36); Mean Corpuscular Volume 94.3 fl (80-100); Platelet Count Result 179 k/mm3 (150-375); Red Blood Count 3.31 M/mm3 (4.2-5.4); Red Cell Distribution Width 22.5 % (11.5-14.5); White Blood Count 9.6 K/mm3 (4.5-10.0)
[2019-04-25 05:19] LABS: Alanine Aminotransferase 23 U/L (4-35); Albumin Level 1.9 g/dL (3.5-5.1); Alkaline Phosphatase 191 U/L (38-126); Aspartate Amino Transferase 21 U/L (14-36); Bilirubin,Total 0.5 mg/dL (0.2-1.3); Blood Urea Nitrogen 19 mg/dL (7-17); Calcium 7.1 mg/dL (8.4-10.2); Carbon Dioxide 21 mmol/L (22-30); Chloride 106 mmol/L (98-107); Estimated CRCL calculation 68 ml/min; Estimated Glomerular Filt Rate > 60; Glucose 117 mg/dL (65-105); Sodium 132 mmol/L (137-145)
[2019-04-25 05:37] LABS: Alveolar/Arterial O2 Gradient 365.9 mmHg; Base Excess ABG -3.6 mEq/l (+/-2.0); Carboxyhemoglobin 0.3 % THb (0-2.0); Fractional Inspired Oxygen 65 %; HCO3 ABG 20.6 mEq/l (22.0-26.0); Methemoglobin ABG 0.4 %THb (0-1.5); Oxygen Content ABG 12.7 %vol (16.0-22.0); Oxygen Saturation ABG 91.6 % (95.0-100.0); PO2 ABG 60.6 mmHg (80.0-100.0); PO2 FiO2 Ratio Arterial Blood 0.93 %; Reduced Hemoglobin 11.3 %THb (0-5.0); Total Hemoglobin 10.2 g/dL (12.0-18.0); pH ABG 7.401 (7.350-7.450)
[2019-04-25 05:38] LABS: Arterial Blood Gas Vent Mode CMV; Arterial Blood Gas Ventilator rate 20 /MIN; Device VENTILATOR; Modified Allen's Test Pass; Site Drawn RIGHT RADIAL
[2019-04-25 05:39] LABS: Arterial Blood Gas PEEP 5 cmH2O; Arterial Blood Gas Pressure Support 0 cmH2O; Arterial Blood Gas Tidal Volume 400 ml
[2019-04-25] MEDS: LEVOTHYROXINE SODIUM INJ 100 MCG/5 ML VIAL 50 MCG IV PUSH (05:59)
[2019-04-25] MEDS: HYDROCORTISONE SODIUM SUCCINATE 100 MG/2 ML VIAL IV PUSH ×2 (05:59→11:10)
--- NOTE | 2019-04-25 06:39 | ECG_ITS ---
Measurements Intervals [place] Rate: 140 P: 64 VT: 128 QRS: 1 QRSD: 59 T: 80 QT: 246 QTc: 376 Interpretive Statements SINUS TACHYCARDIA LOW QRS VOLTAGE- DIFFUSE LEADS BORDERLINE T WAVE ABNORMALITY- LATERAL LEADS BASELINE ARTIFACT- V3, V5 ABNORMAL ECG Electronically Signed On 04-25-2019 9:34:41 CDT by Francicso Danielson D.O.
[2019-04-25] MEDS: VASOPRESSIN INJ 100 UNITS in DEXTROSE 5% 95 ML IV CONT (08:02)
[2019-04-25] MEDS: DORNASE ALFA INH SOLN 1 MG/ML 2.5 ML AMP 2.5 MG INHALATION (08:06)
--- NOTE | 2019-04-25 08:30 | WPDINTPN ---
Progress Note: A&P Assessment and Plan (1) Acute and chronic respiratory failure: Qualifiers: Respiratory failure complication: hypoxia Qualified Code(s): J96.21 - Acute and chronic respiratory failure with hypoxia Code(s): J96.20 - Acute and chronic respiratory failure, unspecified whether with hypoxia or hypercapnia Status: Acute Assessment and Plan: patient with acute on chronic respiratory failure, requiring intubation on the morning of 04/23/2019, patient with decreased mentation and hypoxia - patient placed on CMV mode of ventilation, chest x-ray and ABGs reviewed, ventilator adjusted - FiO2 decreased to 60% will hold increasing PEEP due to increase Levophed require - continue bronchodilators, added Pulmozyme - chest x-ray suggests pulmonary edema. IV fluids were discontinued yesterday.. - Not ready for diuresis due to shock (2) Septic shock: Code(s): A41.9 - Sepsis, unspecified organism; R65.21 - Severe sepsis with septic shock Status: Resolved Assessment and Plan: patient with septic shock likely related to dehydration, hypovolema secondary to diarrhea - patient is positive for C diff - continue p.o. vancomycin and intravenous Flagyl - patient aggressively rehydrated with IV fluids - central line was inserted in the left femoral vein. Right IJ CVC was attempted, could not thread the guidewire so aborted the procedure - continue Levophed and maintain mean arterial pressures greater than 65 mmHg - [place] assessment for further IV fluids was done this morning and and showed only 10.5 % change which is not suggestive of volume responsiveness. - Add vasopressin infusion. Add stress dose steroids. - Albumin level low hence I will add 25% albumin to improve oncotic pressure temporarily. (3) Clostridioides difficile diarrhea: Code(s): A04.72 - Enterocolitis due to Clostridium difficile, not specified as recurrent Status: Acute Assessment and Plan: see above Diarrhea appears to have improved as patient did not had any bowel movement overnight (4) Encephalopathy: Code(s): G93.40 - Encephalopathy, unspecified Status: Acute Assessment and Plan: Encepahlopathy due to septic shock and dehydration - Will treat underlying cause - currently sedated - daily sedation holiday (5) Anemia: Qualifiers: Anemia type: unspecified type Qualified Code(s): D64.9 - Anemia, unspecified Code(s): D64.9 - Anemia, unspecified Status: Acute Assessment and Plan: patient has history anemia hemoglobin low this morning, transfuse 1 unit of packed RBCs monitor and transfuse as needed (6) MARISSA (acute kidney injury): Code(s): N17.9 - Acute kidney failure, unspecified Status: Acute Assessment and Plan: patient with acute kidney injury, likely related to dehydration, hypovolemia, septic shock - patient with electrolyte disturbance and metabolic acidosis - replace low potassium and calcium. - creatinine has improved and patient now appears to be getting volume overloaded. Discontinue IV fluids - patient was started patient on bicarb infusion. metabolic acidosis has improved. discontinued IV bicarb. Continue small amount of bicarb per tube. - additional IV fluids as needed to maintain renal perfusion - continue monitor urine output, electrolytes and renal function (7) Dehydration: Code(s): E86.0 - Dehydration Status: Acute Assessment and Plan: see above (8) Diastolic dysfunction: Code(s): I51.89 - Other ill-defined heart diseases Status: Acute Assessment and Plan: echocardiogram done on 03/15/2019 showed EF of greater than 75%, grade 2 diastolic dysfunction, severe pulmonary hypertension RVSP of 77 mmHg IV mildly enlarged with mild hypokinesis - for further IV fluids at this time (9) Type II diabetes mellitus: Qualifiers:
[2019-04-25] MEDS: ENOXAPARIN 40 MG/0.4 ML SYRINGE SUB-Q (09:01)
[2019-04-25] MEDS: POVIDONE-IODINE 10% OINT 30 GM TUBE 1 APPLIC TOPICAL (09:01)
[2019-04-25] MEDS: PANTOPRAZOLE SODIUM IV 40 MG VIAL IV PUSH (09:01)
[2019-04-25] MEDS: SODIUM BICARBONATE TAB 650 MG TABLET 1300 MG PO ×2 (09:02→16:21)
[2019-04-25] MEDS: ALBUMIN HUMAN 25% 25 GM/100 ML 100 ML IVPB ×3 (09:42→18:52)
[2019-04-25] MEDS: NOREPINEPHRINE 8 MG/D5W 250 ML 8 MG/250 ML BAG 22.5 MG IV CONT (11:09)
[2019-04-25] MEDS: ACETAMINOPHEN ELIXIR 325 MG/10.15 ML UDC 650 MG PO (11:12)
--- NOTE | 2019-04-25 11:21 | PCDIET ---
Nutrition Follow-Up Complete: Nutrition Diagnosis: Inadequate oral intake related to oral intubation as evidenced by NPO status. Nutrition Goal: Patient to meet estimated nutritional needs. Goal in progress. Patient receiving Glucerna 1.2 at 20mL/hr. RN reported 200mL residual this morning. MD ordering Reglan and keeping tube feedings at 20mL/hr for now. Last recorded weight is 74.5 kg which is stable. Bowel Motility: +BM today, liquid. Labs Reviewed: Glu (117), BUN (19), Na (132), Alb (1.9), Hgb (9.6), Hct (31.2) Meds Noted: Albuterol, Fentanyl, Solu Cortef, Novolog, Atrovent, Flagyl, Versed, Levophed, Protonix, Sodium Bicarbonate, Vancomycin, Vasopressin Additional Notes: Buttocks macerated; multiple toe ulcers documented. Agree with plan to hold tube feedings at 20mL/hr; if better tolerated, will likely recommend advancing rate in next 24 hours. Nutrition Monitoring and Evaluation: Follow up every Wednesday/Wednesday. Follow daily in ICU rounds.
[2019-04-25] MEDS: METOCLOPRAMIDE HCL 10 MG/10 ML SOLN UDC 5 MG PO ×2 (11:48→18:52)
[2019-04-25 12:18] LABS: Alveolar/Arterial O2 Gradient 610.8 mmHg; Base Excess ABG -6.8 mEq/l (+/-2.0); Fractional Inspired Oxygen 100 %; Oxygen Content ABG 11.8 %vol (16.0-22.0); Oxygen Saturation ABG 90.2 % (95.0-100.0); Oxyhemoglobin 86.3 % THb (90.0-100.0); PCO2 ABG 39.1 mmHg (35.0-45.0); PO2 ABG 63.1 mmHg (80.0-100.0); PO2 FiO2 Ratio Arterial Blood 0.63 %; Total Hemoglobin 9.7 g/dL (12.0-18.0); pH ABG 7.305 (7.350-7.450)
[2019-04-25 12:19] LABS: Arterial Blood Gas PEEP 5 cmH2O; Arterial Blood Gas Tidal Volume 400 ml; Arterial Blood Gas Vent Mode CMV; Arterial Blood Gas Ventilator rate 20 /MIN; Device VENTILATOR; Modified Allen's Test Pass; Site Drawn RIGHT RADIAL
[2019-04-25 13:09] LABS: Glucose Point of Care 146 (65-105)
--- NOTE | 2019-04-25 13:16 | PC.NURSE ---
Patient transferred to [facility]. Report given to ZOLTAN Pérez. All questions answered.
[2019-04-25] MEDS: MIDAZOLAM HCL 50 MG in DEXTROSE 5% 90 ML IV CONT (14:45)
[2019-04-25] MEDS: AMIODARONE 150 MG/D5W 100 ML 150 MG/100 ML BAG 600 MG IV CONT (15:59)
[2019-04-25] MEDS: AMIODARONE 360 MG/D5W 200 ML 360 MG/200 ML BAG 33.3 MG IV CONT (16:03)
[2019-04-25 16:07] LABS: Blood Urea Nitrogen 20 mg/dL (7-17); Calcium 6.9 mg/dL (8.4-10.2); Carbon Dioxide 20 mmol/L (22-30); Chloride 103 mmol/L (98-107); Estimated CRCL calculation 40 ml/min; Estimated Glomerular Filt Rate 39; Glucose 210 mg/dL (65-105); Magnesium 2.1 mg/dL (1.6-2.3); Phosphorus 4.1 mg/dL (2.5-4.5); Potassium 4.7 mmol/L (3.4-5.0); Sodium 133 mmol/L (137-145)
--- NOTE | 2019-04-25 17:45 | PC.NURSE ---
1540-TEMP CONTINUES TO BE 102.7-103.[address] CROW AWARE. ICE PACKS APPLIED TO ARMPITS AND COOLING BLANKET APPLIED.
--- NOTE | 2019-04-25 18:25 | P.PNIM_ITS ---
Progress Note: A&P Assessment and Plan (1) Clostridioides difficile diarrhea: Code(s): A04.72 - Enterocolitis due to Clostridium difficile, not specified as recurrent Status: Acute Assessment and Plan: * Continue oral vancomycin and IV metronidazole day 3, WBC down but still hypotensive (2) Acute and chronic respiratory failure: Qualifiers: Respiratory failure complication: hypoxia Qualified Code(s): J96.21 - Acute and chronic respiratory failure with hypoxia Code(s): J96.20 - Acute and chronic respiratory failure, unspecified whether with hypoxia or hypercapnia Status: Acute Assessment and Plan: * Continue ventilatory support (3) Septic shock: Code(s): A41.9 - Sepsis, unspecified organism; R65.21 - Severe sepsis with septic shock Status: Resolved Assessment and Plan: * Due to C diff colitis * Continue oral vancomycin and IV metronidazole * Wean norepinephrine as possible (4) Encephalopathy: Code(s): G93.40 - Encephalopathy, unspecified Status: Acute Assessment and Plan: * Duet to sepsis, shock, c diff colitis (5) Hypokalemia: Code(s): E87.6 - Hypokalemia Status: Acute Assessment and Plan: * Likely due to poor intake and stool losses * Improved after supplementation * Follow-up lab including magnesium (6) Hypotension: Qualifiers: Hypotension type: unspecified hypotension type Qualified Code(s): I95.9 - Hypotension, unspecified Code(s): I95.9 - Hypotension, unspecified Status: Acute Assessment and Plan: * Clinically dehydrated with blood pressure 70 in the field * Receive 1 L of saline in the emergency department * Baseline blood pressures in the low 100s * 3/ Bolus with additional 500 mL of saline over 5 hours * 8 early AM received additional 500 ml saline bolus * Monitor pressure continue hydration and pressors (7) Hyponatremia: Code(s): E87.1 - Hypo-osmolality and hyponatremia Status: Acute Assessment and Plan: * Clinically due to dehydration (8) Diastolic dysfunction: Code(s): I51.89 - Other ill-defined heart diseases Status: Acute Assessment and Plan: * 04/22 exam suggests volume overload * Lasix as needed (9) 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: Qualifiers: Laterality: right Qualified Code(s): L97.513 - Non-pressure chronic ulcer of other part of right foot with necrosis of muscle Code(s): L97.503 - Non-pressure chronic ulcer of other part of unspecified foot with necrosis of muscle Status: Acute Assessment and Plan: * Topical Betadine (10) Anemia: Qualifiers: Anemia type: unspecified type Qualified Code(s): D64.9 - Anemia, unspecified Code(s): D64.9 - Anemia, unspecified Status: Acute Assessment and Plan: * Likely due to chronic disease as well as phlebotomies from recent hospitalizations * Iron studies compatible with chronic disease (11) Type II diabetes mellitus: Qualifiers: Diabetes mellitus retirement insulin use: without long term care phlebotomist use Diabetes mellitus complication status: with neurologic complications Diabetes mellitus complication detail: with unspecified neuropathy Qualified Code(s): E11.40 - Type 2 diabetes mellitus with diabetic neuropathy, unspecified Code(s): E11.9 - Type 2 diabetes mellitus without complications Status: Acute Assessment and Plan: * Monitor sugars daily (12) Rheumatoid arthritis: Qualifiers:
--- NOTE | 2019-04-25 18:25 | PM.IMPN ---
Progress Note: A&P Assessment and Plan (1) Clostridioides difficile diarrhea: Code(s): A04.72 - Enterocolitis due to Clostridium difficile, not specified as recurrent Status: Acute Assessment and Plan: Continue oral vancomycin and IV metronidazole day 3, WBC down but still hypotensive (2) Acute and chronic respiratory failure: Qualifiers: Respiratory failure complication: hypoxia Qualified Code(s): J96.21 - Acute and chronic respiratory failure with hypoxia Code(s): J96.20 - Acute and chronic respiratory failure, unspecified whether with hypoxia or hypercapnia Status: Acute Assessment and Plan: Continue ventilatory support (3) Septic shock: Code(s): A41.9 - Sepsis, unspecified organism; R65.21 - Severe sepsis with septic shock Status: Resolved Assessment and Plan: Due to C diff colitis Continue oral vancomycin and IV metronidazole Wean norepinephrine as possible (4) Encephalopathy: Code(s): G93.40 - Encephalopathy, unspecified Status: Acute Assessment and Plan: Duet to sepsis, shock, c diff colitis (5) Hypokalemia: Code(s): E87.6 - Hypokalemia Status: Acute Assessment and Plan: Likely due to poor intake and stool losses Improved after supplementation Follow-up lab including magnesium (6) Hypotension: Qualifiers: Hypotension type: unspecified hypotension type Qualified Code(s): I95.9 - Hypotension, unspecified Code(s): I95.9 - Hypotension, unspecified Status: Acute Assessment and Plan: Clinically dehydrated with blood pressure 70 in the field Receive 1 L of saline in the emergency department Baseline blood pressures in the low 100s 04/21 Bolus with additional 500 mL of saline over 5 hours 04/22 early AM received additional 500 ml saline bolus Monitor pressure continue hydration and pressors (7) Hyponatremia: Code(s): E87.1 - Hypo-osmolality and hyponatremia Status: Acute Assessment and Plan: Clinically due to dehydration (8) Diastolic dysfunction: Code(s): I51.89 - Other ill-defined heart diseases Status: Acute Assessment and Plan: 04/22 exam suggests volume overload Lasix as needed (9) 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: Qualifiers: Laterality: right Qualified Code(s): L97.513 - Non-pressure chronic ulcer of other part of right foot with necrosis of muscle Code(s): L97.503 - Non-pressure chronic ulcer of other part of unspecified foot with necrosis of muscle Status: Acute Assessment and Plan: Topical Betadine (10) Anemia: Qualifiers: Anemia type: unspecified type Qualified Code(s): D64.9 - Anemia, unspecified Code(s): D64.9 - Anemia, unspecified Status: Acute Assessment and Plan: Likely due to chronic disease as well as phlebotomies from recent hospitalizations Iron studies compatible with chronic disease (11) Type II diabetes mellitus: Qualifiers: Diabetes mellitus termite treater insulin use: without group home use Diabetes mellitus complication status: with neurologic complications Diabetes mellitus complication detail: with unspecified neuropathy Qualified Code(s): E11.40 - Type 2 diabetes mellitus with diabetic neuropathy, unspecified Code(s): E11.9 - Type 2 diabetes mellitus without complications Status: Acute Assessment and Plan: Monitor sugars daily (12) Rheumatoid arthritis: Qualifiers: Rheumatoid arthritis location: unspecified site Rheumatoid factor presence: unspecified presence Qualified Code(s): M06.9 - Rheumatoid arthritis, unspecified Code(s): M06.9 - Rheumatoid arthritis, unspecified Status: Acute Assessment and Plan: Received Enbrel 2 days ago Continue leflunomide Clinically seems to be in remission (13) Oral ulcer: Code(s): K12.1 - Other forms of sto
--- NOTE | 2019-04-25 18:55 | PDCODEBLUE ---
[facility] Note [facility] Note Time Arrived at [facility]: 185 <Kristen Welch PA-C - Last Filed: 04/26/19 13:45> Initial Rhythm on Arrival: Asystole. <Kristen Welch PA-C - Last Filed: 04/26/19 13:45> Airway Management: Patient already intubated. <Kristen Welch PA-C - Last Filed: 04/26/19 13:45> Chest Compressions: In process on arrival to bedside <Kristen Welch PA-C - Last Filed: 04/26/19 13:45> Result of Code Gonzales: Pt <Kristen Welch PA-C - Last Filed: 04/26/19 13:45> Cardiac Rhythm Post Code: Junctional rhythm with ROSC initially, deteriorating into bradycardia and PEA. <Kristen Welch PA-C - Last Filed: 04/26/19 13:45> [facility] Summary: Per RN notes, the patient was started on amiodarone drip around 1525 due to runs of SVT and atrial flutter. Patient was also hyperthermic, with documented temperature up to 103.7? earlier this afternoon. RN was at bedside when the patient's heart rate became bradycardic, quickly progressing into asystole. Amiodarone discontinued. Nora gonzales was called at 18:55, and I arrived to bedside shortly thereafter, followed by ED attending and hospitalist, Dr. Rosado. Chest compressions were being performed at that time. Patient developed return of spontaneous circulation not long thereafter, junctional rhythm in the 50s, after receiving calcium chloride (calcium was 6.9 at 15:47) and an amp of bicarbonate (CO2 level 20 at 15:47) in addition to epinephrine. Due to ROSC, it was felt that the ED physician could return to the ED. Within minutes, the patient became bradycardic again and went in to PEA. CPR was resumed per ACLS protocol, again with ROSC and a junctional rhythm. I then spoke with Dr. Valdovinos, attending critical care physician on-call, via phone. We discussed the case, and he recommended starting the patient on a dopamine drip, to titrate to a heart rate of 50 and a MAP of at least 60. He also requested repeat laboratory studies including ABG as well as chest x-ray. Dopamine was titrated up to 20 mcg, with a heart rate in the mid 70's and despite this her blood pressure was not registering. Nora rolon was called again overhead due to bradycardia and PEA. CPR once again initiated per ACLS protocol. ROSC would be achieved for a short period of time before deteriorating again. After nearly 35 minutes, and daughter at bedside requested no more CPR should she decompensate again. I left the room and it was documented that the patient passed at 1934. Please see code blue sheet for further details. <Kristen Welch PA-C - Last Filed: 04/26/19 13:45> Critical Care Time Critical Care Time: Yes <Kristen Welch PA-C - Last Filed: 04/26/19 13:45> Total Critical Care Time: 45 <Kristen Welch PA-C - Last Filed: 04/26/19 13:45> Attestation: 45 minutes critical care time was spent in attention of this patient including initiation CPR and medications per ACLS protocol, as well as discussions with specialists (attending hospitalist, attending ED physician, biopharmaceutical rep) and multiple discussions with the patient's family at bedside. <Kristen Welch PA-C - Last Filed: 04/26/19 13:45>
--- NOTE | 2019-04-25 19:56 | PC.NURSE ---
185-Patient HR declined to asystole while I was at bedside. Code called. Family at bedside. TALA Camargo. at bedside. See code sheet.
--- NOTE | 2019-04-26 11:35 | PM.EVENT ---
Event Note Event Note Event Note: yesterday patient was in septic shock and on Levophed and vasopressin. Patient was also on stress dose steroids and antibiotics for Clostridium difficile colitis. after I left for the day I received call from nurse stating the patient was having narrow complex tachycardia which was irregular and appeared to be AFib and was having runs of SVT which I suspected was RVR. As patient on was on multiple vasopressors, I ordered amiodarone bolus and infusion for rate control and ordered electrolytes. Her potassium and magnesium level came back normal. later received phone call from nurse practitioner regarding patient's PEA/ asystole cardiac arrest. Please refer to the code blue note for further details following that event.
--- NOTE | 2019-04-26 18:17 | PM.DDS ---
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: (10) Anemia: (11) Type II diabetes mellitus: (12) Rheumatoid arthritis: (13) Oral ulcer: (14) Right ischial pressure sore, stage 1: (15) Peripheral arterial occlusive disease: (16) Protein-calorie malnutrition, moderate: (17) Metabolic acidosis with normal anion gap and failure of bicarbonate regeneration: (18) Peripheral neuropathy: (19) MARISSA (acute kidney injury): Discharge Sum: Summary Date and Time Date of admission: 04/22/19 14:02 Summary Details: Christie Ying with a 59-year-old chronically ill white female with rheumatoid arthritis admitted with acute respiratory failure C diff colitis and sepsis. This with his 3rd admission with respiratory failure since the of the year. Once with pneumonia, once with diastolic heart failure, and now this admission with the sepsis and C diff colitis.. She continued to have a continual downhill course while here despite bite her awake efforts with pressors and appropriate treatment. In the evening approximately 7:00 p.m. on the 24 of April she suffered a cardiopulmonary arrest and could not be successfully resuscitated after over 30 minutes of CPR and appropriate interventions. Cause of sepsis with C diff colitis Additional Data Attending physician: Kolby Torrez MD Was code activated?: Yes Autopsy requested?: No
== END 2019-04-25 20:00 | disposition expired | DRG 720 ==
LOC: ANHED 14:29 → ANHIMU 15:18 → ANHICU 04-23 12:56 → ANHIMU 04-28 14:13
PROVIDERS: Internal Medicine; Physician Assistant; Admitting Provider Internal Medicine; Emergency Provider Emergency Medicine; PCP Nurse Practitioner Adult Health; Visit Provider Internal Medicine
DX: A41.89 Other specified sepsis (principal); R65.21 Severe sepsis with septic shock; A04.72 Enterocolitis due to Clostridium difficile, not specified as recurrent; J96.21 Acute and chronic respiratory failure with hypoxia; I11.0 Hypertensive heart disease with heart failure; I50.32 Chronic diastolic (congestive) heart failure; E87.6 Hypokalemia; E87.1 Hypo-osmolality and hyponatremia; M06.9 Rheumatoid arthritis, unspecified; G93.49 Other encephalopathy; E44.0 Moderate protein-calorie malnutrition; E87.2 Acidosis; E03.9 Hypothyroidism, unspecified; E11.42 Type 2 diabetes mellitus with diabetic polyneuropathy; E11.51 Type 2 diabetes mellitus with diabetic peripheral angiopathy without gangrene; I73.9 Peripheral vascular disease, unspecified; I47.1 Supraventricular tachycardia; I48.91 Unspecified atrial fibrillation; I46.2 Cardiac arrest due to underlying cardiac condition; I27.20 Pulmonary hypertension, unspecified; E78.5 Hyperlipidemia, unspecified; N17.9 Acute kidney failure, unspecified; L89.311 Pressure ulcer of right buttock, stage 1; E11.621 Type 2 diabetes mellitus with foot ulcer; L97.513 Non-pressure chronic ulcer of other part of right foot with necrosis of muscle; F41.9 Anxiety disorder, unspecified; D63.8 Anemia in other chronic diseases classified elsewhere; K12.1 Other forms of stomatitis; Z68.27 Body mass index [BMI] 27.0-27.9, adult; Z87.891 Personal history of nicotine dependence
CPT/HCPCS: 31500; 36415; 36430; 36600; 71045; 74018; 80048; 80053; 81001; 82375; 82607; 82746; 82805; 83050; 83540; 83550; 83605; 83690; 83735; 84100; 84132; 84443; 84484; 85025; 85027; 85046; 85055; 85610; 85730; 86140; 86850; 86900; 86901; 86923; 87015; 87045; 87046; 87077; 87081; 87086; 87088; 87186; 87269; 87272; 87324; 87427; 87804; 89055; 93005; 94002; 94003; 94640; 96360; 99285; A9270; C1751; C9113; J0171; J0282; J1265; J1650; J1720; J1815; J2250; J2370; J3010; J3475; J3480; J7030; J7040; J7050; J7070; J7120; P9016; P9047